=== PATIENT | female | born 1940 | race Caucasian/White ===

== ENCOUNTER → 2020-07-07 14:52 | Outpatient (CLI) | payer SELFPAY, OTHER ==
--- NOTE | 2020-07-07 15:04 | VDLE_ITS ---
Reason For Study: Leg pain Procedure LEFT This is a venous duplex using B-mode, color GSV is normal. flow and spectral Doppler. CFV is compressible, spontaneous, phasic, Exam performed in department. competent, and demonstrates normal A preliminary report was called and/or faxed augmentation. to [facility]. FV is compressible, spontaneous, phasic, competent and demonstrates normal augmentation. POP V is compressible, spontaneous, phasic, competent and demonstrates normal augmentation. T/P Trunk is compressible. PTV is compressible. LT PerV is compressible. VL/Venous Duplex US, Unilateral Interpretation Summary Deep veins of the left lower extremity are patent and compressible segmentally. There is no evidence of left lower extremity deep vein thrombosis. Valvular competence appears intac t within the proximal deep venous system on the left . The left great saphenous vein appears patent a nd compressible segmentally. Ordering Physician: AUDRA CASTANEDA Referring Physician: MD Megan Sergio Performed By: Janette Shook RVT
== END ==
PROVIDERS: PCP Family Medicine
DX: M25.572 Pain in left ankle and joints of left foot (principal); M79.605 Pain in left leg
CPT/HCPCS: 93971

== ENCOUNTER → 2020-10-18 09:46 | Outpatient (CLI) | payer OTHER, SELFPAY ==
[2020-10-18 08:59] VITALS: BMI 24.6
[2020-10-18 11:07] LABS: Thyroid Stim Hormone (TSH) 2.03 uIU/mL (0.358-3.74)
== END ==
PROVIDERS: PCP Family Medicine; Referring Provider Internal Medicine Cardiovascular Disease; Visit Provider Internal Medicine Cardiovascular Disease
DX: I48.0 Paroxysmal atrial fibrillation (principal); I10 Essential (primary) hypertension
CPT/HCPCS: 36415; 84443

== ENCOUNTER → 2020-10-19 10:02 | Outpatient (CLI) | payer OTHER, SELFPAY ==
[2020-10-18 08:59] VITALS: BMI 24.6
[2020-10-19 10:27] LABS: Prothrombin Time (Protime)PT. 72.6 SECONDS (11.7-14.9)
[2020-10-19 10:35] LABS: International Normalized Ratio 8.9
== END ==
PROVIDERS: PCP Family Medicine; Referring Provider Family Medicine; Visit Provider Family Medicine
DX: I48.0 Paroxysmal atrial fibrillation (principal)
CPT/HCPCS: 85610

== ENCOUNTER → 2020-10-20 | Outpatient (CLI) | payer OTHER, SELFPAY ==
[2020-10-18 08:59] VITALS: BMI 24.6
[2020-10-20 09:08] LABS: International Normalized Ratio 2.6; Prothrombin Time (Protime)PT. 26.6 SECONDS (11.7-14.9)
== END | disposition home or self-care (01) ==
LOC: LABSPEC 08:30
PROVIDERS: PCP Family Medicine; Visit Provider Family Medicine
DX: I48.0 Paroxysmal atrial fibrillation (principal)
CPT/HCPCS: 85610

== ENCOUNTER → 2020-10-24 09:34 | Outpatient (CLI) | payer SELFPAY, OTHER ==
[2020-10-18 08:59] VITALS: BMI 24.6
--- NOTE | 2020-10-24 09:36 | ECHOD_ITS ---
Version 2 Reason For Study: PAROXYSMAL AFIB. Procedure This was a 2D Doppler, Color Flow transthoracic echocardiogram. The study was technically difficult. Exam performed with patient in a reclined sitting position due to scoliosis. Exam performed in department. Left Ventricle Normal LV size. Left ventricular systolic function is normal. The estimated ejection fraction is 65 %. Stage 1 diastolic dysfunction. No regional wall motion abnormalities noted. Right Ventricle Normal RV size. Normal systolic function. Atria The left atrium is mildly enlarged. Normal right atrium. Mitral Valve There is mild to moderate mitral annular calcification. Mild (1+) eccentric mitral valve insufficiency. Tricuspid Valve Normal tricuspid valve. Moderate (2+) tricuspid valve insufficiency. Pulmonary artery systolic pressure is 32 mmHg. Aortic Valve Trisinus/trileaflet aortic valve. Mild focal aortic valve calcification. Mild (1+) eccentric aortic valve insufficiency. Pulmonic Valve Normal pulmonic valve. Great Vessels Normal aortic root. The pulmonary artery is normal size. Normal inferior vena cava. Pericardium/Pleural No pericardial effusion. MMode/2D Measurements & Calculations LVIDd: 4.3 cm IVSd: 0.98 cm Ao root diam: 2.8 cm LVIDs: 2.0 cm LVPWd: 0.82 cm RVDd: 2.7 cm FS: 52.2 % LAV(MOD-bp): 48.6 ml LA A4 area: 19.1 cm2 LA dimension(2D): 3.1 cm LAV(MOD-bp) Indexed: 32.5 ml/m2 LAV(MOD-sp2): 47.1 ml LAV(MOD-sp4): 48.3 ml RA A4 area: 16.1 cm2 Time Measurements MV dec time: 0.26 sec Doppler Measurements & Calculations MV E max jake: 93.7 cm/sec Lat Peak E' Jake: 6.8 cm/sec Med Peak E' Jake: 6.8 cm/sec MV A max jake: 138.1 cm/sec E/E' lat: 13.8 E/E' med: 13.7 MV E/A: 0.68 Ao V2 max: 169.1 cm/sec AI max jake: 422.4 cm/sec LV V1 max: 108.5 cm/sec Ao max P.4 mmHg AI max P.4 mmHg LV V1 max P.7 mmHg Ao V2 mean: 113.0 cm/sec AI dec slope: 207.1 cm/sec2 LV V1 mean P.7 mmHg Ao mean P.8 mmHg AI P1/2t: 597.4 msec LV V1 mean: 78.0 cm/sec Ao V2 VTI: 35.9 cm LV V1 VTI: 26.0 cm PA V2 max: 81.4 cm/sec TR max jake: 268.3 cm/sec TR max P.8 mmHg ECHO/Echo Complete Interpretation Summary Normal LV size. Left ventricular systolic function is normal. The estimated ejection fraction is 65 %. Stage 1 diastolic dysfunction. There is mild to moderate mitral annular calcification. Mild (1+) eccentric mitral valve insufficiency. Ordering Physician: Jaya Jordan Referring Physician: Sergio Guzman Performed By: Jayde Vazquez, CALEB, RVT
--- NOTE | 2020-10-24 19:39 | STRESSREP_ITS ---
Stress Test Report Pharmacologic myocardial perfusion stress test. 79-year-old lady with a history of chest pain. Stress protocol: Resting EKG demonstrates normal sinus rhythm with a rate of 71 bpm normal intervals are noted resting blood pressure is 142/68 mmHg. 0.4 mg of regadenoson was infused per usual protocol followed by rapid intravenous saline flush injection continuous EKG monitoring was performed. The patient maintained sinus rhythm throughout the recording. At rest there were no ST or T wave changes noted to suggest ischemia and at peak infusion nonspecific ST changes were noted with did not meet the criteria for ischemia. No clinical angina was noted. The maximum heart rate was under 1 bpm which was 71% of maximum predicted heart rate the maximum workload was 1 metabolic equivalent. The final blood pressure was 110/60 mmHg. Myocardial perfusion protocol. 11.0 mCi of technetium 99m sestamibi was injected at rest. 0.4 mg of rega denoson was infused per usual protocol. At peak infusion 33.4 mCi of technetium 99m sestamibi was injected stress images were obtained stress and rest images were reconstructed and compared in the short axis vertical long horizontal long axis. Gated images were also obtained Perfusion SPECT analysis: Review of the stress images demonstrate normal uptake of tracer noted in all areas of the myocardium. The resting images similarly demonstrate normal uptake of tracer noted in all areas of the myocardium. No areas of reversibility are noted to suggest ischemia and no previous infarct is noted. Gated SPECT analysis: The gated ejection fraction is 74%. Conclusion: Normal pharmacologic myocardial perfusion stress test. Preserved ejection fraction.
== END ==
PROVIDERS: PCP Family Medicine; Referring Provider Internal Medicine Cardiovascular Disease; Visit Provider Internal Medicine Cardiovascular Disease
DX: R07.9 Chest pain, unspecified (principal); I48.0 Paroxysmal atrial fibrillation; I48.92 Unspecified atrial flutter
CPT/HCPCS: 78452; 93017; 93306; A9500; A4216; J2785

== ENCOUNTER → 2020-10-26 | Outpatient (CLI) | payer OTHER, SELFPAY ==
[2020-10-18 08:59] VITALS: BMI 24.6
[2020-10-26 10:36] LABS: International Normalized Ratio 3.5; Prothrombin Time (Protime)PT. 34.6 SECONDS (11.7-14.9)
== END | disposition home or self-care (01) ==
LOC: LABSPEC 10:13
PROVIDERS: PCP Family Medicine; Visit Provider Family Medicine
DX: I48.0 Paroxysmal atrial fibrillation (principal)
CPT/HCPCS: 85610

== ENCOUNTER → 2020-12-12 | Outpatient (CLI) | payer OTHER, SELFPAY ==
[2020-12-12 13:04] LABS: International Normalized Ratio 2.1
== END | disposition home or self-care (01) ==
LOC: LABSPEC 12-13 08:06
PROVIDERS: PCP Family Medicine; Visit Provider Family Medicine
DX: I48.0 Paroxysmal atrial fibrillation (principal)
CPT/HCPCS: 85610

== ENCOUNTER 2020-12-26 13:00 | Outpatient (RCR) | payer OTHER, SELFPAY ==
[2020-12-05 14:42] VITALS: BMI 49.6
--- NOTE | 2020-12-05 16:10 | PN.PCM_ITS ---
History of Present Illness Date of Service: 12/05/20 Chief Complaint: Venous leg ulceration, left lower extremity History of Wound: This is a 76-year-old Taoist female who presents with a 6 week history of ulceration in the left medial supramalleolar area. The patient admits to having a prior episode of ulceration in this area. She claims to sleep in a flat position at night. However, during the day she spends a great deal of time and in idle sitting position. She denies any history of thrombo phlebitis. She was evaluated in the wound center 1 week ago, and treated with an Unna boot. She presents at this time, where it is noted that the ulceration in the left lower extremity is now completely healed. 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 Patient wears compre ssion stockings which she obtains [id number]. 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 Subjective Subjective Ariana is a 80 YO Taoist female who has been seen in the [facility] at [facility] for venous stasis ulcers of the LLE. There are 2 ulcers on the L medial malleolus. She is known to have incompetence of the BL great saphenous VV and the small saphenous VV. she is on chronic anticoagulation with Warfarin for PAF. I have reviewed previous notes and vascular studies. She had a normal arterial vacular study of the LE's in 2016. She admits to not wearing the compression stockings recently because with the open wound on the left medial malleolus they hurt too much to put them on. An echocardiogram in September of this year showed a 65% ejection fraction with no wall motion abnormalities. There was stage I diastolic dysfunction and +1 eccentric mitral valve insufficiency. She had a nuclear s tress test in September of 2020 but, there is no report on the results in the EMR. I was eventually able to find the results under provider notes and the test was negative for ischemia. Ariana denies any fevers, shaking chills or night sweats. She tells me that she has been taking Advil for pain. Objective Data Objective Data Vital Signs: Weight: 271 lb 2.697 oz Body Mass Index (BMI) 49.6 Lab / Micro Data Result Diagrams: 12/05/20 16:16 Charges/Coding Procedures Integumentary [id number]: [id number] Fawn subq tissue 20 sq cm/< Physical Exam Skin Skin Narrative: She has hyperpigmentation of both LE's that is patchy. She has has numerous petechiae over both distal LE's and her told me her last INR was 2.9. She denies any epistaxis, bleeding from the gums, hematochezia. No mid epigastric pain and no N/V/hematemesis. The area over the left medial malleolus is swollen and misshapen, more likely than not due to scarring. The area is purplish due to venous stasis. The skin is dry and flakey in places. There is increased warmth to touch of the medial ankle. There are 2 areas of skin breakdown limited to superficial skin breakdown but, these areas are very painful to touch. The skin is friable. The area is fed by numerous veins. The left foot is much more swollen that the left. A swab was taken of the wound and will be sent for culture and MRSA PCR. No undermining and no tunnelling and the wounds are superficial. There is no athlete's foot between the toes. Debridement Note Debridement Note Wound debrided: 2 wounds over the left medial malleolus...one superior and 1 inferior. Laterality: Left Type of Debridement: Excisional debridement Anesthesia Used: 5% Lidocaine Gel Depth: Down to and including healthy tissue and in the subcutaneous layer Percentage of wound debrided: 70 Instrument Used: Forceps Tissue Removed: biofilm and slough Severity: Limited To Skin Breakdown Amount of bleeding with debridement: Mild Bleeding Controlled with: Pressure Patient tolerated procedure: Patient tolerated procedure well Operative Diagnosis: non-healing venous stasis ulcers of the left MM Post-Debridement Measurements and Additional Note: Post-Debridement Measurements/Treatment - Nurse 1 - General Ulcer Assessment Start: 12/05/20 14:39 Freq: Status: Active Protocol: PEYTON Activity Type Activity Date Activity User E-Sign Co-Sign Detail Recorded Client Recorded Date Recorded By Document 12/05/20 14:42 [facility] [id number] 12/05/20 14:55 [facility] 12/05/20 14:42 - Today's Visit Information Type of service Initial Visit Arrival Mode Ambulatory Transfer Assistance None Accompanied by Patient Identification Verified (Name & Yes ) Patient Requires Transmission-Based No Precautions Height and Weight Height 5 ft 2 in Weight 271 lb 2.697 oz Weight in Pounds 271.2 lbs Weight Measurement Method Estimated by Patient Body Mass Index (BMI) 49.6 BMI Classification Obese BSA - Kaitlyn 2.18 History Since Last Visit- (Skip if this is Patient's initial visit) Left Footwear Regular Shoe Right Footwear Regular Shoe Pain Scale: 0-10 Numeric Is Patient Pain Free? Yes Lower Extremity Assessment/ Foot Assessment/ Toe Nail Assessment Right -Posterior Tibial Doppler Monophasic -Dorsalis Pedis Doppler Monophasic -Extremity Color Hyperpigmented, Hemosiderin -Hair Growth on Legs No -Hair Growth on Toes No -Temperature of Extremity Warm -Other Deformity No -Prior Foot Ulcer No -Charcot Joint No -Prior Amputation No -Thick Yes -Discolored No -Deformed No -Improper Length & Hygeine No Left -Posterior Tibial Doppler Monophasic -Dorsalis Pedis Doppler Monophasic -Extremity Color Hyperpigmented, Hemosiderin -Hair Growth on Legs No -Hair Growth on Toes No -Temperature of Extremity Warm -Other Deformity No -Prior Foot Ulcer No -Charcot Joint No -Prior Amputation No -Thick Yes -Discolored No -Deformed No -Improper Length & Hygeine No Neuropathy Assessment Feet - Top Side and Bottom <Entered> (a) Communication Assessment Preferred language Gambian Reed Or Wind Instrument Tuner Required No Able to Read Yes Able to Write Yes Communication Tools None Right Hearing Abillity Normal Left Hearing Abillity Normal Visual Assistive Devices Glasses Teaching Assessment Preferences Verbal,Written, Audio/Visual, Demonstration Barriers to Learning None Readiness To Learn Excellent Willingness to Engage in Self Management High Activies Readiness to Engage in Self Management High Activities Anxiety Level Calm Cooperation Cooperative Perception Coherent Interest in Health Problem Asks Questions Education Importance Acknowledges Need Does Patient Smoke tobacco or other No substances Smoking Status Never smoker Is Patient Diabetic No 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 Cultural/Judaism Needs that may affect No Treatment Plan Teaching: Wound Center *Welcome to the Wound Center -Person Taught Patient,Family -Teaching Method Discussion -Response to teaching Verbalize understanding Welcome to the Wound Care Center Gambian (a) 1 - + WC - Nurse 1 - General Ulcer Measurement Start: 12/05/20 14:39 Freq: Status: Active Protocol: Activity Type Activity Date Activity User E-Sign Co-Sign Detail Recorded Client Recorded Date Recorded By Document 12/05/20 14:42 [facility] [id number] 12/05/20 14:55 [facility] 12/05/20 14:42 Wound Center Nurse 1 #3- L INFERIOR MED ANKLE -Combined with other wound No -Current Size (cm) - Length 0.9 -Current Size (cm) - Width 0.9 -Current Size (cm) - Depth 0.1 -Total Square Cm 0.81 -Date of Last Picture (Recall this 12/05/20 field) -Photo Taken Yes -Epithelialization None Present -Tunneling No -Undermining/Tunneling No -Circular Undermining No -Exudate Amt Medium -Exudate Type Serosanguineous -Wound Margin Distinct, Outline Attached -Granulation Amt Medium (34-66%) -Granulation Quality Red -Slough/Fibrin Yes -Necrosis Amt Medium (34-66%) -Necrotic Tissue Type Adherent Slough -Texture (Sherly-wound Skin Appearance) Assessed, Scarring -Moisture (Sherly-wound Skin Appearance) Assessed -Color (Sherly-wound Skin Appearance) Assessed, Hemosiderin Staining -Temperature (Sherly-wound Skin No Abnormality Appearance) (Pt Warm) -Tenderness on Palpation (Sherly-wound Yes Skin Appearance) -Ulcer Cleansing Rinsed/ Irrigated with Saline -Foul Odor after Cleansing No -Anesthetic Used 5% Lidocaine Gel #2- L MED SUPERIOR ANKLE -Combined with other wound No -Current Size (cm) - Length 0.4 -Current Size (cm) - Width 1 -Current Size (cm) - Depth 0.1 -Total Square Cm 0.4 -Date of Last Picture (Recall this 12/05/20 field) -Photo Taken Yes -Epithelialization None Present -Tunneling No -Undermining/Tunneling No -Circular Undermining No -Exudate Amt Medium -Exudate Type Serosanguineous -Wound Margin Distinct, Outline Attached -Granulation Amt Small (1-33%) -Granulation Quality Red -Slough/Fibrin Yes -Necrosis Amt Large (67-100%) -Necrotic Tissue Type Adherent Slough -Texture (Sherly-wound Skin Appearance) Assessed, Scarring -Moisture (Shelry-wound Skin Appearance) Assessed -Color (Sherly-wound Skin Appearance) Assessed, Hemosiderin Staining -Temperature (Sherly-wound Skin No Abnormality Appearance) (Pt Warm) -Tenderness on Palpation (Sherly-wound Yes Skin Appearance) -Ulcer Cleansing Rinsed/ Irrigated with Saline -Foul Odor after Cleansing No -Anesthetic Used 5% Lidocaine Gel Lower Limb Edema Present Yes Right Calf (cm) 33.5 Right Ankle (cm) 21 Left Calf (cm) 32 Left Ankle (cm) 21.5 WC - Nurse 2 - General Ulcer CM Notes Start: 12/05/20 14:39 Freq: Status: Active Protocol: Activity Type Activity Date Activity User E-Sign Co-Sign Detail Recorded Client Recorded Date Recorded By Document 12/05/20 15:24 [facility] [id number] 12/05/20 15:40 [facility] 12/05/20 15:24 Wound Center Nurse 2 #3- L INFERIOR MED ANKLE -Time 15:26 -Correct Patient Yes -Correct Side, Site, Position Yes -Correct Procedure Yes -Procedure Performed Yes -Type of Procedure Debridement -Clinical Debridement Subcutaneous -Tissue Removed Subcutaneous -Post Debridement (cm) - Length 0.9 -Post Debridement (cm) - Width 0.9 -Post Debridement (cm) - Depth 0.1 -Total Square (Post) (cm) 0.81 -Area of Debridement (cm) - Length 0.9 -Area of Debridement (cm) - Width 0.9 -Total Square (Area) (cm) 0.81 -Tunneling No -Undermining/Tunneling No -Circular Undermining No -Wound/Ulcer Outcome Not Healed -Ulcer Cleansing Rinsed/ Irrigated with Saline -Foul Odor after Cleansing No -Bioengineered Tissue No -Bleeding Controlled with Pressure -Offloading No -Treatment Response Procedure Tolerated Well -Debridement - Subq, 1st 20sq cm Yes #2- L MED SUPERIOR ANKLE -Time 15:26 -Correct Patient Yes -Correct Side, Site, Position Yes -Correct Procedure Yes -Procedure Performed Yes -Type of Procedure Debridement -Clinical Debridement Subcutaneous -Tissue Removed Subcutaneous -Post Debridement (cm) - Length 0.4 -Post Debridement (cm) - Width 1.0 -Post Debridement (cm) - Depth 0.1 -Total Square (Post) (cm) 0.40 -Area of Debridement (cm) - Length 0.4 -Area of Debridement (cm) - Width 1.0 -Total Square (Area) (cm) 0.40 -Tunneling No -Undermining/Tunneling No -Circular Undermining No -Wound/Ulcer Outcome Not Healed -Ulcer Cleansing Rinsed/ Irrigated with Saline -Foul Odor after Cleansing No -Bioengineered Tissue No -Bleeding Controlled with Pressure -Offloading No -Treatment Response Procedure Tolerated Well -Debridement - Subq, 1st 20sq cm Yes Pain Scale: 0-10 Numeric Is Patient Pain Free? Yes WC - Nurse 3 - General Ulcer D/C NN Start: 12/05/20 14:39 Freq: Status: Active Protocol: Activity Type Activity Date Activity User E-Sign Co-Sign Detail Recorded Client Recorded Date Recorded By Document 12/05/20 16:01 [facility] [id number] 12/05/20 16:04 [facility] 12/05/20 16:01 Wound Care Nurse 3 #3- L INFERIOR MED ANKLE -Ulcer Cleansing Rinsed/ Irrigated with Saline -Foul Odor after Cleansing No -Negative Pressure Wound Therapy N/A Left -Multi-Layered Wrap Application Unna Boot - Left ($) WC - Visit Discharge Discharge Condition Stable Ambulatory Status Ambulatory Transportation Private Auto Accompanied by Medication Reconcilliation completed & Yes provided to patient/care provider Clinical Summary of Care Provided Yes Assessment/Plan Assessment/Plan (1) Cellulitis: CODE(S): L03.90 - Cellulitis, unspecified (2) Venous ulcer of left leg: CODE(S): I83.029 - Varicose veins of left lower extremity with ulcer of unspecified site (3) Venous incompetence: CODE(S): I87.2 - Venous insufficiency (chronic) (peripheral) (4) Petechiae: CODE(S): R23.3 - Spontaneous ecchymoses (5) Hemosiderin pigmentation of lower extremity due to varicose veins: CODE(S): L81.8 - Other specified disorders of pigmentation; I83.899 - Varicose veins of unspecified lower extremity with other complications (6) Chronic anticoagulation: CODE(S): Z79.01 - oil heaterman (current) use of anticoagulants (7) Grade I diastolic dysfunction: CODE(S): I51.9 - Heart disease, unspecified PLAN: 1. Duricef 1 GM daily for 7 days 2. she is to discontinue use of Advil and take either Tylenol or Tramadol. A RX was given for Tramadol 50 mg tabs and she is to take 25-50 mg every 6 hours as needed for pain 3-10. 3. Unna boot was applied to the LLE and she will return to the [facility] Friday for a nurse visit. I stressed to her how improtant compression is to preventing/treating venous stasis ulcers. 4. Check a CBC with Diff, PT and a ESR and BMP 5. Cultures of the wound were sent and a MRSA PCR.
[2020-12-05 17:41] LABS: M R Staph aureus DNA By PCR Negative (Negative); Probe Check PASS; Specimen Processing Control PASS; Staph aureus DNA By PCR POSITIVE (Negative)
[2020-12-05 17:46] LABS: Absolute Lymphocyte Count 1.41 X10^3/uL (0.83-4.51); Absolute Neutrophil Count 2.5 X10^3/uL (2.0-7.7); Basophil# 0.02 X10^3/uL; Basophil% 0.4 % (0-1); Eosinophil# 0.22 X10^3/uL; Eosinophils% 4.8 % (0-5); Hematocrit 36.3 % (37-47); Hemoglobin 11.8 g/dL (12.0-15.0); Lymphocyte # 1.41 X10^3/ul (0.83-4.51); Lymphocyte % 30.5 % (19-41); Mean Corp Hgb Conc 32.5 g/dL (32-36); Mean Corpuscular Hgb 31.1 pg (27.0-32.0); Mean Corpuscular Volume 95.8 fL (81-99); Mean Platelet Vol. 10.3 fl (6.2-12.0); Monocyte# 0.49 X10^3/uL; Monocyte% 10.6 % (0-10); NRBC Flagged by Analyzer 0 % (0-5); Neutrophil # 2.48 X10^3/uL (2.7-7.7); Neutrophil % 53.5 % (47-70); Platelet Count 159 K/mm3 (150-450); RBC Distribution Width CV 13.5 % (11.6-14.6); RBC Distribution Width SD 47.9 fl (35.1-43.9); Red Blood Count 3.79 M/mm3 (4.2-5.4); White Blood Count 4.6 K/mm3 (4.4-11.0)
[2020-12-05 18:07] LABS: International Normalized Ratio 3.3; Prothrombin Time (Protime)PT. 32.5 SECONDS (11.7-14.9)
[2020-12-05 18:19] LABS: Erythrocyte Sedimentation Rate 8 mm/hr (0-30)
[2020-12-08 11:44] VITALS: BP 118/60; PULSE 73; RESP 16; TEMP 36.1; BMI 49.6
[2020-12-12 13:14] VITALS: BP 143/64; PULSE 70; RESP 16; TEMP 36.3; BMI 49.6
--- NOTE | 2020-12-12 13:40 | PN.PCM_ITS ---
History of Present Illness Date of Service: 12/12/20 Chief Complaint: Venous leg ulceration, left lower extremity History of Wound: This is a 76-year-old Anabaptist female who presents with a 6 week history of ulceration in the left medial supramalleolar area. The patient admits to having a prior episode of ulceration in this area. She claims to sleep in a flat position at night. However, during the day she spends a great deal of time and in idle sitting position. She denies any history of thrombo phlebitis. She was evaluated in the wound center 1 week ago, and treated with an Unna boot. She presents at this time, where it is noted that the ulceration in the left lower extremity is now completely healed. 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 Patient wears compre ssion stockings which she obtains [id number]. 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 Subjective Subjective Ariana returns to the wound care center today for a follow-up visit regarding venous stasis ulcers of the left medial ankle. She has severe varicosities of both lower extremities with hyperpigmentation and scarring around the ankles. She denies fever, shaking chills or night sweats. She does complain of pain in her left ankle and admits she may be on it too much. She has been taking the tramadol but she sometimes only takes it in the morning or at night. She took the last Duricef today. Objective Data Objective Data Vital Signs: Vital Signs Temp Pulse Resp BP 97.4 F L 70 16 143/64 H 12/12/20 13:14 12/12/20 13:14 12/12/20 13:14 12/12/20 13:14 Oxygen Delivery Method Room Air Weight: 271 lb 2.697 oz Body Mass Index (BMI) 49.6 Lab / Micro Data Result Diagrams: 12/05/20 16:16 Micro: Microbiology 12/05/20 15:35 Wound Abcess - Ankle Gram Stain - Final 12/05/20 15:35 Wound Abcess - Ankle Wound Culture - Final Staphylococcus aureus 12/05/20 15:35 Wound Abcess - Ankle Anaerobic Culture - Final Anaerobic cocci Charges/Coding Procedures Integumentary [id number]: [id number] Fawn subq tissue 20 sq cm/< Physical Exam Skin Wound Narrative: She has large complexes of varicose veins over the medial malleoli BL. There is thickening of the skin over the medial calf on the LLE and it is discolored due to hemosiderin staining. there are 2 wounds on the L medial malleolus. the proximal wound is healed. the wound that is more inferior remain open. she was unable to tolerate debridement even with the 4% lidocaine solution so I injected the area surrounding the wound with with 2% Lidocaine without EPI. She was then able to tolerate debridement. The base of the wound is white and fibrous following debridement of the slough covering the wound. There was very little bleeding. She tolerated the procedure well following the Lidocaine injection. No odor, no undermining, no tunneling. The depth is 0.1 cm. There is still mild increased warmth to touch around the open wound and some redness. Debridement Note Debridement Note Wound debrided: venous stasis ulcer over the Left medial ankle Laterality: Left Type of Debridement: Excisional debridement Anesthesia Used: 4% Lidocaine Solution and - (2% Lidocaine infiltration to facillitate debridement in painful patient) Depth: in the subcutaneous layer Percentage of wound debrided: 100 Instrument Used: 3mm curette and Forceps Tissue Removed: slough and biofilm Severity: Fat Layer Exposed Amount of bleeding with debridement: None Patient tolerated procedure: Patient tolerated procedure well Operative Diagnosis: non-healing venous stasis ulcer L MM Post-Debridement Measurements and Additional Note: Post-Debridement Measurements/Treatment - Nurse 1 - General Ulcer Assessment Start: 12/05/20 14:39 Freq: Status: Active Protocol: SHANTEL.LOWEXT Activity Type Activity Date Activity User E-Sign Co-Sign Detail Recorded Client Recorded Date Recorded By Document 12/05/20 14:42 BMF [id number] 12/05/20 14:55 BMF Document 12/08/20 11:44 ML [id number] 12/08/20 11:45 ML Document 12/12/20 13:14 MW [id number] 12/12/20 13:17 MW 12/05/20 12/08/20 12/12/20 14:42 11:44 13:14 - Today's Visit Information Type of service Initial Visit Nurse-only Follow-up Visit Visit (Physician/CODING SPEC ) Arrival Mode Ambulatory Ambulatory Ambulatory Transfer Assistance None None None Accompanied by Patient Identification Verified (Name & Yes Yes Yes ) Patient Requires Transmission-Based No No No Precautions Safety Precautions NA Height and Weight Height 5 ft 2 in Weight 271 lb 2.697 oz Weight in Pounds 271.2 lbs Weight Measurement Method Estimated by Patient Body Mass Index (BMI) 49.6 49.6 49.6 BMI Classification Obese Obese Obese BSA - Kaitlyn 2.18 Vital Signs Temperature (97.8 F-99.1 F) 97.0 F L 97.4 F L Temperature Source Temporal Temporal Pulse Rate (60-100) 73 70 Pulse Location Monitor Monitor Respiratory Rate (12-18) 16 16 Respiratory rate source Observation Observation Oxygen Delivery Method Room Air Blood Pressure (90/60-120/80) 118/60 143/64 H Blood Pressure Mean (mm Hg) 79 90 Source Monitor Monitor Position Sitting Blood Pressure Location Left Arm Left Arm Have you changed medications since your No No last visit? Any new allergies or adverse reactions No No Had a fall/change in ADL's that may No No increase risk of falls Signs or symptoms of abuse and/or No No neglect since last visit Have you been in the hospital since your No No last visit? Has dressing in place as prescribed Yes Yes Has compression in place as prescribed Yes Yes Has offloadiing in place as prescribed N/A N/A Experienced any changes in pain level or No No management History Since Last Visit- (Skip if this is Patient's initial visit) Left Footwear Regular Shoe Regular Shoe Regular Shoe Right Footwear Regular Shoe Regular Shoe Regular Shoe Pain Scale: 0-10 Numeric Is Patient Pain Free? Yes Yes Yes Lower Extremity Assessment/ Foot Assessment/ Toe Nail Assessment Right -Posterior Tibial Doppler Monophasic -Dorsalis Pedis Doppler Monophasic -Extremity Color Hyperpigmented, Hemosiderin -Hair Growth on Legs No -Hair Growth on Toes No -Temperature of Extremity Warm -Other Deformity No -Prior Foot Ulcer No -Charcot Joint No -Prior Amputation No -Thick Yes -Discolored No -Deformed No -Improper Length & Hygeine No Left -Posterior Tibial Doppler Monophasic -Dorsalis Pedis Doppler Monophasic -Extremity Color Hyperpigmented, Hemosiderin -Hair Growth on Legs No -Hair Growth on Toes No -Temperature of Extremity Warm -Other Deformity No -Prior Foot Ulcer No -Charcot Joint No -Prior Amputation No -Thick Yes -Discolored No -Deformed No -Improper Length & Hygeine No Neuropathy Assessment Feet - Top Side and Bottom <Entered> (a) Communication Assessment Preferred language Citizen 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 Able to Read Yes Able to Write Yes Communication Tools None Right Hearing Abillity Normal Left Hearing Abillity Normal Visual Assistive Devices Glasses Teaching Assessment Preferences Verbal,Written, Audio/Visual, Demonstration Barriers to Learning None Readiness To Learn Excellent Willingness to Engage in Self Management High Activies Readiness to Engage in Self Management High Activities Anxiety Level Calm Cooperation Cooperative Perception Coherent Interest in Health Problem Asks Questions Education Importance Acknowledges Need Does Patient Smoke tobacco or other No substances Smoking Status Never smoker Is Patient Diabetic No 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 Cultural/Sikhism Needs that may affect No Treatment Plan Teaching: Wound Center *Welcome to the Wound Center -Person Taught Patient,Family -Teaching Method Discussion -Response to teaching Verbalize understanding Welcome to the Wound Care Center Citizen [place] (a) 1 - + - Nurse 1 - General Ulcer Measurement Start: 12/05/20 14:39 Freq: Status: Active Protocol: Activity Type Activity Date Activity User E-Sign Co-Sign Detail Recorded Client Recorded Date Recorded By Document 12/05/20 14:42 [facility] [id number] 12/05/20 14:55 [facility] Document 12/12/20 13:14 [id number] 12/12/20 13:17 12/05/20 12/12/20 14:42 13:14 Wound Center Nurse 1 #3- L INFERIOR MED ANKLE -Combined with other wound No No -Current Size (cm) - Length 0.9 0.1 -Current Size (cm) - Width 0.9 0.1 -Current Size (cm) - Depth 0.1 0.1 -Total Square Cm 0.81 0.01 -Date of Last Picture (Recall this 12/05/20 field) -Photo Taken Yes No -Epithelialization None Present None Present -Tunneling No No -Undermining/Tunneling No No -Circular Undermining No No -Exudate Amt Medium Medium -Exudate Type Serosanguineous Serosanguineous -Wound Margin Distinct, Flat & Intact Outline Attached -Granulation Amt Medium (34-66%) Small (1-33%) -Granulation Quality Red Tropic -Slough/Fibrin Yes Yes -Necrosis Amt Medium (34-66%) Medium (34-66%) -Necrotic Tissue Type Adherent Slough Adherent Slough -Structure Exposed N/A -Texture (Sherly-wound Skin Appearance) Assessed, Assessed, Scarring Localized Edema ,Scarring -Moisture (Sherly-wound Skin Appearance) Assessed Assessed,Dry/ Scaly -Color (Hserly-wound Skin Appearance) Assessed, Assessed, Hemosiderin Hemosiderin Staining Staining -Temperature (Sherly-wound Skin No Abnormality No Abnormality Appearance) (Pt Warm) (Pt Warm) -Tenderness on Palpation (Sherly-wound Yes No Skin Appearance) -Ulcer Cleansing Rinsed/ SOAP AND WATER Irrigated with Saline -Foul Odor after Cleansing No -Anesthetic Used 5% Lidocaine Gel #2- L MED SUPERIOR ANKLE -Combined with other wound No No -Current Size (cm) - Length 0.4 0.1 -Current Size (cm) - Width 1 0.1 -Current Size (cm) - Depth 0.1 0.1 -Total Square Cm 0.4 0.01 -Date of Last Picture (Recall this 12/05/20 field) -Photo Taken Yes No -Epithelialization None Present Large 67-100% -Tunneling No No -Undermining/Tunneling No No -Circular Undermining No No -Exudate Amt Medium Small -Exudate Type Serosanguineous -Wound Margin Distinct, Flat & Intact Outline Attached -Granulation Amt Small (1-33%) None Present (0 %) -Granulation Quality Red N/A -Slough/Fibrin Yes No -Necrosis Amt Large (67-100%) None Present (0 %) -Necrotic Tissue Type Adherent Slough -Structure Exposed N/A -Texture (Sherly-wound Skin Appearance) Assessed, Assessed, Scarring Scarring -Moisture (Sherly-wound Skin Appearance) Assessed Assessed,Dry/ Scaly -Color (Sherly-wound Skin Appearance) Assessed, Assessed, Hemosiderin Hemosiderin Staining Staining -Temperature (Sherly-wound Skin No Abnormality No Abnormality Appearance) (Pt Warm) (Pt Warm) -Tenderness on Palpation (Sherly-wound Yes Yes Skin Appearance) -Ulcer Cleansing Rinsed/ SOAP AND WATER Irrigated with Saline -Foul Odor after Cleansing No No -Anesthetic Used 5% Lidocaine 4% Lidocaine Gel Solution Lower Limb Edema Present Yes No Right Calf (cm) 33.5 Right Ankle (cm) 21 Left Calf (cm) 32 Left Ankle (cm) 21.5 WC - Nurse 2 - General Ulcer CM Notes Start: 12/05/20 14:39 Freq: Status: Active Protocol: Activity Type Activity Date Activity User E-Sign Co-Sign Detail Recorded Client Recorded Date Recorded By Document 12/05/20 15:24 MW [id number] 12/05/20 15:40 MW Edit Result 12/05/20 15:24 MW (1) [id number] 12/07/20 06:41 PL Document 12/12/20 13:17 MW [id number] 12/12/20 13:33 MW (1) #2- L MED SUPERIOR ANKLE - Debridement - Subq, 1st 20sq cm Yes => No 12/05/20 12/12/20 15:24 13:17 Wound Center Nurse 2 #3- L INFERIOR MED ANKLE -Time 15:26 13:19 -Correct Patient Yes Yes -Correct Side, Site, Position Yes Yes -Correct Procedure Yes Yes -Procedure Performed Yes Yes -Type of Procedure Debridement Debridement -Clinical Debridement Subcutaneous Subcutaneous -Tissue Removed Subcutaneous Subcutaneous -Post Debridement (cm) - Length 0.9 0.9 -Post Debridement (cm) - Width 0.9 0.7 -Post Debridement (cm) - Depth 0.1 0.1 -Total Square (Post) (cm) 0.81 0.63 -Area of Debridement (cm) - Length 0.9 0.9 -Area of Debridement (cm) - Width 0.9 0.7 -Total Square (Area) (cm) 0.81 0.63 -Tunneling No No -Undermining/Tunneling No No -Circular Undermining No No -Wound/Ulcer Outcome Not Healed Not Healed -Ulcer Cleansing Rinsed/ Rinsed/ Irrigated with Irrigated with Saline Saline -Foul Odor after Cleansing No No -Bioengineered Tissue No No -Injectable Lidocaine (%) 2 -Lidocaine (ml) 5 -Bleeding Controlled with Pressure Pressure -Offloading No No -Treatment Response Procedure Procedure Tolerated Well Tolerated Well -Debridement - Subq, 1st 20sq cm Yes Yes #2- L MED SUPERIOR ANKLE -Time 15:26 13:18 -Correct Patient Yes Yes -Correct Side, Site, Position Yes Yes -Correct Procedure Yes Yes -Procedure Performed Yes No -Type of Procedure Debridement -Clinical Debridement Subcutaneous -Tissue Removed Subcutaneous -Post Debridement (cm) - Length 0.4 0 -Post Debridement (cm) - Width 1.0 0 -Post Debridement (cm) - Depth 0.1 0 -Total Square (Post) (cm) 0.40 0 -Area of Debridement (cm) - Length 0.4 -Area of Debridement (cm) - Width 1.0 -Total Square (Area) (cm) 0.40 -Tunneling No -Undermining/Tunneling No -Circular Undermining No -Wound/Ulcer Outcome Not Healed Healed- Epithelialized -Ulcer Cleansing Rinsed/ Irrigated with Saline -Foul Odor after Cleansing No -Bioengineered Tissue No -Bleeding Controlled with Pressure -Offloading No -Treatment Response Procedure Tolerated Well -Debridement - Subq, 1st 20sq cm No Pain Scale: 0-10 Numeric Is Patient Pain Free? Yes Yes - Nurse 3 - General Ulcer D/C NN Start: 12/05/20 14:39 Freq: Status: Active Protocol: Activity Type Activity Date Activity User E-Sign Co-Sign Detail Recorded Client Recorded Date Recorded By Document 12/05/20 16:01 AK [id number] 12/05/20 16:04 AK Document 12/08/20 11:44 ML [id number] 12/08/20 11:45 ML 12/05/20 12/08/20 16:01 11:44 Wound Care Nurse 3 #3- L INFERIOR MED ANKLE -Ulcer Cleansing Rinsed/ Irrigated with Saline -Foul Odor after Cleansing No -Negative Pressure Wound Therapy N/A Left -Multi-Layered Wrap Application Unna Boot - Unna Boot - Left ($) Left ($) Vital Signs Temperature (97.8 F-99.1 F) 97.0 F L Temperature Source Temporal Pulse Rate (60-100) 73 Pulse Location Monitor Respiratory Rate (12-18) 16 Respiratory rate source Observation Blood Pressure (90/60-120/80) 118/60 Blood Pressure Mean (mm Hg) 79 Source Monitor Position Sitting Blood Pressure Location Left Arm Pain Scale: 0-10 Numeric Is Patient Pain Free? Yes WC - Visit Discharge Discharge Condition Stable Ambulatory Status Ambulatory Transportation Private Auto Accompanied by Medication Reconcilliation completed & Yes provided to patient/care provider Clinical Summary of Care Provided Yes Assessment/Plan Assessment/Plan (1) Venous ulcer of left leg: CODE(S): I83.029 - Varicose veins of left lower extremity with ulcer of unspecified site (2) Cellulitis: CODE(S): L03.90 - Cellulitis, unspecified (3) Chronic anticoagulation: CODE(S): Z79.01 - USP (current) use of anticoagulants (4) Venous incompetence: CODE(S): I87.2 - Venous insufficiency (chronic) (peripheral) PLAN: 1. Duricef 1 GM BID for 4 days. 2. Tramadol 50 mg tabs #28 1 PO q 6 hours PRN pain. May take 2 at bedtime 3. Cover the wound with Tavia and they re-apply unna boot 4. RTC in 1 week 5. Ariana will bring the compression stocking in for the R leg next week.......she thinks it is time for new stockings If we can not get the wound to heal would consider Theraskin once the infection has resolved.
[2020-12-19 13:15] VITALS: BP 139/59; PULSE 78; RESP 20; TEMP 36.1; BMI 49.6
--- NOTE | 2020-12-19 13:42 | PN.PCM_ITS ---
History of Present Illness Date of Service: 12/19/20 Chief Complaint: Venous leg ulceration, left lower extremity History of Wound: This is a 76-year-old Buddhist female who presents with a 6 week history of ulceration in the left medial supramalleolar area. The patient admits to having a prior episode of ulceration in this area. She claims to sleep in a flat position at night. However, during the day she spends a great deal of time and in idle sitting position. She denies any history of thrombo phlebitis. She was evaluated in the wound center 1 week ago, and treated with an Unna boot. She presents at this time, where it is noted that the ulceration in the left lower extremity is now completely healed. 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 Patient wears compre ssion stockings which she obtains [id number]. 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 Subjective Subjective She has only been taking the Duricef 500 mg BID and not 1 GM BID. She is c/o sharp lightening' pain in the distal LLE and the ankle. It sometimes feels as though it is burning. This pain wakes her up at night sometimes. She admits to doing too much but, tells me that when she sits and then gets up to walk the pain is transiently worse. She denies F/C/S. No diarrhea, painful mouth sores or vaginal itching or DC. Objective Data Objective Data Vital Signs: Vital Signs Temp Pulse Resp BP 96.9 F L 78 20 H 139/59 H 12/19/20 13:15 12/19/20 13:15 12/19/20 13:15 12/19/20 13:15 Oxygen Delivery Method Room Air Weight: 271 lb 2.697 oz Body Mass Index (BMI) 49.6 Lab / Micro Data Result Diagrams: 12/05/20 16:16 Micro: Microbiology 12/05/20 15:35 Wound Abcess - Ankle Gram Stain - Final 12/05/20 15:35 Wound Abcess - Ankle Wound Culture - Final Staphylococcus aureus 12/05/20 15:35 Wound Abcess - Ankle Anaerobic Culture - Final Anaerobic cocci Charges/Coding Procedures Integumentary [id number]: [id number] Debride infected skin Physical Exam Skin Wound Narrative: There is mild erythema around the venous stasis ulcer over the medial malleolus and there is also increased warmth to touch when compared to the other ankle. The wound is covered with a thick dried eschar/callous. The wound is lilliam. There is a lot of rough scar tissue around the wound from multiple previous ulcers. The wound proximal to the ulcer over the medial malleolus is healed. Debridement Note Debridement Note Wound debrided: venous stasis ulcer Laterality: Left Type of Debridement: Excisional debridement Anesthesia Used: 4% Lidocaine Solution Depth: Down to and including healthy tissue Percentage of wound debrided: 100 Instrument Used: 3mm curette and Forceps Tissue Removed: eschar/biofilm Severity: Limited To Skin Breakdown Amount of bleeding with debridement: Mild Bleeding Controlled with: Pressure Patient tolerated procedure: Patient tolerated procedure well Debridement Free Text: the base of the wound is white and fibrous. There is so much scar issue in this area of the wound that there is very little subcutaneous tissue......We may actually be looking at a tendon or part of the joint capsule Operative Diagnosis: infected venous stasis ulcer Post-Debridement Measurements and Additional Note: Post-Debridement Measu rements/Treatment - Nurse 1 - General Ulcer Assessment Start: 12/05/20 14:39 Freq: Status: Active Protocol: SHANTEL.LORRI Activity Type Activity Date Activity User E-Sign Co-Sign Detail Recorded Client Recorded Date Recorded By Document 12/05/20 14:42 [facility] [id number] 12/05/20 14:55 BMF Document 12/08/20 11:44 ML [id number] 12/08/20 11:45 ML Document 12/12/20 13:14 MW [id number] 12/12/20 13:17 MW Document 12/19/20 13:15 DL [id number] 12/19/20 13:20 DL 12/05/20 12/08/20 12/12/20 14:42 11:44 13:14 - Today's Visit Information Type of service Initial Visit Nurse-only Follow-up Visit Visit (Physician/UTILITY LOCATOR ) Arrival Mode Ambulatory Ambulatory Ambulatory Transfer Assistance None None None Accompanied by Patient Identification Verified (Name & Yes Yes Yes ) Patient Requires Transmission-Based No No No Precautions Safety Precautions NA Height and Weight Height 5 ft 2 in Weight 271 lb 2.697 oz Weight in Pounds 271.2 lbs Weight Measurement Method Estimated by Patient Body Mass Index (BMI) 49.6 49.6 49.6 BMI Classification Obese Obese Obese BSA - Kaitlyn 2.18 Vital Signs Temperature (97.8 F-99.1 F) 97.0 F L 97.4 F L Temperature Source Temporal Temporal Pulse Rate (60-100) 73 70 Pulse Location Monitor Monitor Respiratory Rate (12-18) 16 16 Respiratory rate source Observation Observation Oxygen Delivery Method Room Air Blood Pressure (90/60-120/80) 118/60 143/64 H Blood Pressure Mean (mm Hg) 79 90 Source Monitor Monitor Position Sitting Blood Pressure Location Left Arm Left Arm Have you changed medications since your No No last visit? Any new allergies or adverse reactions No No Had a fall/change in ADL's that may No No increase risk of falls Signs or symptoms of abuse and/or No No neglect since last visit Have you been in the hospital since your No No last visit? Has dressing in place as prescribed Yes Yes Has compression in place as prescribed Yes Yes Has offloadiing in place as prescribed N/A N/A Experienced any changes in pain level or No No management History Since Last Visit- (Skip if this is Patient's initial visit) Left Footwear Regular Shoe Regular Shoe Regular Shoe Right Footwear Regular Shoe Regular Shoe Regular Shoe Pain Scale: 0-10 Numeric Is Patient Pain Free? Yes Yes Yes Lower Extremity Assessment/ Foot Assessment/ Toe Nail Assessment Right -Posterior Tibial Doppler Monophasic -Dorsalis Pedis Doppler Monophasic -Extremity Color Hyperpigmented, Hemosiderin -Hair Growth on Legs No -Hair Growth on Toes No -Temperature of Extremity Warm -Other Deformity No -Prior Foot Ulcer No -Charcot Joint No -Prior Amputation No -Thick Yes -Discolored No -Deformed No -Improper Length & Hygeine No Left -Posterior Tibial Doppler Monophasic -Dorsalis Pedis Doppler Monophasic -Extremity Color Hyperpigmented, Hemosiderin -Hair Growth on Legs No -Hair Growth on Toes No -Temperature of Extremity Warm -Other Deformity No -Prior Foot Ulcer No -Charcot Joint No -Prior Amputation No -Thick Yes -Discolored No -Deformed No -Improper Length & Hygeine No Neuropathy Assessment Feet - Top Side and Bottom <Entered> (a) Communication Assessment Preferred language Kittitian Structural Architect Required No Able to Read Yes Able to Write Yes Communication Tools None Right Hearing Abillity Normal Left Hearing Abillity Normal Visual Assistive Devices Glasses Teaching Assessment Preferences Verbal,Written, Audio/Visual, Demonstration Barriers to Learning None Readiness To Learn Excellent Willingness to Engage in Self Management High Activies Readiness to Engage in Self Management High Activities Anxiety Level Calm Cooperation Cooperative Perception Coherent Interest in Health Problem Asks Questions Education Importance Acknowledges Need Does Patient Smoke tobacco or other No substances Smoking Status Never smoker Is Patient Diabetic No Culture/Episcopalian/Director Of Teenage Activities Cultural/Episcopalian Needs that may affect No Treatment Plan Teaching: Wound Center *Welcome to the Wound Center -Person Taught Patient,Family -Teaching Method Discussion -Response to teaching Verbalize understanding Welcome to the Wound Care Center Kitt[place] 12/19/20 13:15 WC - Today's Visit Information Type of service Follow-up Visit (Physician/UTILITY LOCATOR ) Arrival Mode Ambulatory Transfer Assistance None Accompanied by Patient Identification Verified (Name & Yes ) Patient Requires Transmission-Based No Precautions Safety Precautions Height and Weight Height Weight Weight in Pounds Weight Measurement Method Body Mass Index (BMI) 49.6 BMI Classification Obese BSA - Kaitlyn Vital Signs Temperature (97.8 F-99.1 F) 96.9 F L Temperature Source Temporal Pulse Rate (60-100) 78 Pulse Location Monitor Respiratory Rate (12-18) 20 H Respiratory rate source Observation Oxygen Delivery Method Blood Pressure (90/60-120/80) 139/59 H Blood Pressure Mean (mm Hg) 85 Source Monitor Position Blood Pressure Location Have you changed medications since your No last visit? Any new allergies or adverse reactions No Had a fall/change in ADL's that may No increase risk of falls Signs or symptoms of abuse and/or No neglect since last visit Have you been in the hospital since your No last visit? Has dressing in place as prescribed Yes Has compression in place as prescribed Yes Has offloadiing in place as prescribed N/A Experienced any changes in pain level or No management History Since Last Visit- (Skip if this is Patient's initial visit) Left Footwear Right Footwear Pain Scale: 0-10 Numeric Is Patient Pain Free? Yes Lower Extremity Assessment/ Foot Assessment/ Toe Nail Assessment Right -Posterior Tibial Doppler -Dorsalis Pedis Doppler -Extremity Color -Hair Growth on Legs -Hair Growth on Toes -Temperature of Extremity -Other Deformity -Prior Foot Ulcer -Charcot Joint -Prior Amputation -Thick -Discolored -Deformed -Improper Length & Hygeine Left -Posterior Tibial Doppler -Dorsalis Pedis Doppler -Extremity Color -Hair Growth on Legs -Hair Growth on Toes -Temperature of Extremity -Other Deformity -Prior Foot Ulcer -Charcot Joint -Prior Amputation -Thick -Discolored -Deformed -Improper Length & Hygeine Neuropathy Assessment Feet - Top Side and Bottom Communication Assessment Preferred associate merchandiser Required Able to Read Able to Write Communication Tools Right Hearing Abillity Left Hearing Abillity Visual Assistive Devices Teaching Assessment Preferences Barriers to Learning Readiness To Learn Willingness to Engage in Self Management Activies Readiness to Engage in Self Management Activities Anxiety Level Cooperation Perception Interest in Health Problem Education Importance Does Patient Smoke tobacco or other substances Smoking Status Is Patient Diabetic Culture/Episcopalian/Director Of Teenage Activities Cultural/Episcopalian Needs that may affect Treatment Plan Teaching: Wound Center *Welcome to the Wound Center -Person Taught -Teaching Method -Response to teaching Welcome to the Wound Care Center (a) 1 - + WC - Nurse 1 - General Ulcer Measurement Start: 12/05/20 14:39 Freq: Status: Active Protocol: Activity Type Activity Date Activity User E-Sign Co-Sign Detail Recorded Client Recorded Date Recorded By Document 12/05/20 14:42 [facility] [id number] 12/05/20 14:55 [facility] Document 12/12/20 13:14 MW [id number] 12/12/20 13:17 MW Document 12/19/20 13:15 DL [id number] 12/19/20 13:20 DL 12/05/20 12/12/20 12/19/20 14:42 13:14 13:15 Wound Center Nurse 1 #3- L INFERIOR MED ANKLE -Combined with other wound No No -Current Size (cm) - Length 0.9 0.1 5 -Current Size (cm) - Width 0.9 0.1 1.5 -Current Size (cm) - Depth 0.1 0.1 0.1 -Total Square Cm 0.81 0.01 7.5 -Date of Last Picture (Recall this 12/05/20 field) -Photo Taken Yes No No -Epithelialization None Present None Present -Tunneling No No -Undermining/Tunneling No No -Circular Undermining No No -Exudate Amt Medium Medium Small -Exudate Type Serosanguineous Serosanguineous Serosanguineous -Wound Margin Distinct, Flat & Intact Thickened Outline Attached -Granulation Amt Medium (34-66%) Small (1-33%) Small (1-33%) -Granulation Quality Red Corwith Corwith -Slough/Fibrin Yes Yes -Necrosis Amt Medium (34-66%) Medium (34-66%) Large (67-100%) -Necrotic Tissue Type Adherent Slough Adherent Slough Adherent Slough -Structure Exposed N/A N/A -Texture (Sherly-wound Skin Appearance) Assessed, Assessed, Scarring Scarring Localized Edema ,Scarring -Moisture (Sherly-wound Skin Appearance) Assessed Assessed,Dry/ No Abnormality Scaly -Color (Sherly-wound Skin Appearance) Assessed, Assessed, No Abnormality Hemosiderin Hemosiderin Staining Staining -Temperature (Sherly-wound Skin No Abnormality No Abnormality No Abnormality Appearance) (Pt Warm) (Pt Warm) (Pt Warm) -Tenderness on Palpation (Sherly-wound Yes No No Skin Appearance) -Ulcer Cleansing Rinsed/ SOAP AND WATER Wound Cleanser Irrigated with Saline -Foul Odor after Cleansing No No -Anesthetic Used 5% Lidocaine 4% Lidocaine Gel Solution #2- L MED SUPERIOR ANKLE -Combined with other wound No No -Current Size (cm) - Length 0.4 0.1 -Current Size (cm) - Width 1 0.1 -Current Size (cm) - Depth 0.1 0.1 -Total Square Cm 0.4 0.01 -Date of Last Picture (Recall this 12/05/20 field) -Photo Taken Yes No -Epithelialization None Present Large 67-100% -Tunneling No No -Undermining/Tunneling No No -Circular Undermining No No -Exudate Amt Medium Small -Exudate Type Serosanguineous -Wound Margin Distinct, Flat & Intact Outline Attached -Granulation Amt Small (1-33%) None Present (0 %) -Granulation Quality Red N/A -Slough/Fibrin Yes No -Necrosis Amt Large (67-100%) None Present (0 %) -Necrotic Tissue Type Adherent Slough -Structure Exposed N/A -Texture (Sherly-wound Skin Appearance) Assessed, Assessed, Scarring Scarring -Moisture (Sherly-wound Skin Appearance) Assessed Assessed,Dry/ Scaly -Color (Sherly-wound Skin Appearance) Assessed, Assessed, Hemosiderin Hemosiderin Staining Staining -Temperature (Sherly-wound Skin No Abnormality No Abnormality Appearance) (Pt Warm) (Pt Warm) -Tenderness on Palpation (Sherly-wound Yes Yes Skin Appearance) -Ulcer Cleansing Rinsed/ SOAP AND WATER Irrigated with Saline -Foul Odor after Cleansing No No -Anesthetic Used 5% Lidocaine 4% Lidocaine Gel Solution Lower Limb Edema Present Yes No Right Calf (cm) 33.5 Right Ankle (cm) 21 Left Calf (cm) 32 31.2 Left Ankle (cm) 21.5 20 WC - Nurse 2 - General Ulcer CM Notes Start: 12/05/20 14:39 Freq: Status: Active Protocol: Activity Type Activity Date Activity User E-Sign Co-Sign Detail Recorded Client Recorded Date Recorded By Document 12/05/20 15:24 MW [id number] 12/05/20 15:40 MW Edit Result 12/05/20 15:24 MW (1) [id number] 12/07/20 06:41 PL Document 12/12/20 13:17 MW [id number] 12/12/20 13:33 MW Document 12/19/20 13:25 JF [id number] 12/19/20 13:35 JF (1) #2- L MED SUPERIOR ANKLE - Debridement - Subq, 1st 20sq cm Yes => No 12/05/20 12/12/20 12/19/20 15:24 13:17 13:25 Wound Center Nurse 2 #3- L INFERIOR MED ANKLE -Time 15:26 13:19 13:26 -Correct Patient Yes Yes Yes -Correct Side, Site, Position Yes Yes Yes -Correct Procedure Yes Yes Yes -Procedure Performed Yes Yes Yes -Type of Procedure Debridement Debridement Debridement -Clinical Debridement Subcutaneous Subcutaneous Subcutaneous -Tissue Removed Subcutaneous Subcutaneous Subcutaneous -Post Debridement (cm) - Length 0.9 0.9 1.8 -Post Debridement (cm) - Width 0.9 0.7 0.8 -Post Debridement (cm) - Depth 0.1 0.1 0.1 -Total Square (Post) (cm) 0.81 0.63 1.44 -Area of Debridement (cm) - Length 0.9 0.9 1.8 -Area of Debridement (cm) - Width 0.9 0.7 0.8 -Total Square (Area) (cm) 0.81 0.63 1.44 -Tunneling No No No -Undermining/Tunneling No No No -Circular Undermining No No No -Wound/Ulcer Outcome Not Healed Not Healed -Ulcer Cleansing Rinsed/ Rinsed/ Rinsed/ Irrigated with Irrigated with Irrigated with Saline Saline Saline -Foul Odor after Cleansing No No No -Bioengineered Tissue No No No -Injectable Lidocaine (%) 2 -Lidocaine (ml) 5 -Bleeding Controlled with Pressure Pressure Pressure -Offloading No No No -Treatment Response Procedure Procedure Procedure Tolerated Well Tolerated Well Tolerated Well -Debridement - Subq, 1st 20sq cm Yes Yes Yes #2- L MED SUPERIOR ANKLE -Time 15:26 13:18 -Correct Patient Yes Yes -Correct Side, Site, Position Yes Yes -Correct Procedure Yes Yes -Procedure Performed Yes No -Type of Procedure Debridement -Clinical Debridement Subcutaneous -Tissue Removed Subcutaneous -Post Debridement (cm) - Length 0.4 0 -Post Debridement (cm) - Width 1.0 0 -Post Debridement (cm) - Depth 0.1 0 -Total Square (Post) (cm) 0.40 0 -Area of Debridement (cm) - Length 0.4 -Area of Debridement (cm) - Width 1.0 -Total Square (Area) (cm) 0.40 -Tunneling No -Undermining/Tunneling No -Circular Undermining No -Wound/Ulcer Outcome Not Healed Healed- Epithelialized -Ulcer Cleansing Rinsed/ Irrigated with Saline -Foul Odor after Cleansing No -Bioengineered Tissue No -Bleeding Controlled with Pressure -Offloading No -Treatment Response Procedure Tolerated Well -Debridement - Subq, 1st 20sq cm No Pain Scale: 0-10 Numeric Is Patient Pain Free? Yes Yes Yes WC - Nurse 3 - General Ulcer D/C NN Start: 12/05/20 14:39 Freq: Status: Active Protocol: Activity Type Activity Date Activity User E-Sign Co-Sign Detail Recorded Client Recorded Date Recorded By Document 12/05/20 16:01 AK [id number] 12/05/20 16:04 AK Document 12/08/20 11:44 ML [id number] 12/08/20 11:45 ML Document 12/12/20 14:04 PL [id number] 12/14/20 08:05 PL 12/05/20 12/08/20 12/12/20 16:01 11:44 14:04 Wound Care Nurse 3 #3- L INFERIOR MED ANKLE -Ulcer Cleansing Rinsed/ Irrigated with Saline -Foul Odor after Cleansing No -Negative Pressure Wound Therapy N/A Left -Multi-Layered Wrap Application Unna Boot - Unna Boot - Unna Boot - Left ($) Left ($) Left ($) Vital Signs Temperature (97.8 F-99.1 F) 97.0 F L Temperature Source Temporal Pulse Rate (60-100) 73 Pulse Location Monitor Respiratory Rate (12-18) 16 Respiratory rate source Observation Blood Pressure (90/60-120/80) 118/60 Blood Pressure Mean (mm Hg) 79 Source Monitor Position Sitting Blood Pressure Location Left Arm Pain Scale: 0-10 Numeric Is Patient Pain Free? Yes WC - Visit Discharge Discharge Condition Stable Ambulatory Status Ambulatory Transportation Private Auto Accompanied by Medication Reconcilliation completed & Yes provided to patient/care provider Clinical Summary of Care Provided Yes Assessment/Plan Assessment/Plan (1) Venous ulcer of left leg: CODE(S): I83.029 - Varicose veins of left lower extremity with ulcer of unspecified site (2) Cellulitis: CODE(S): L03.90 - Cellulitis, unspecified PLAN: 1. The wound culture grew a anaerobe as well as the MSSA. I am going to change the antibiotic to Amoxicillin 875mg BID for 10 days. 2. No unna boot today. Will provide compression with an LOTTIE and she is going to elevate the leg to above the level of the heart when sitting. 3. start Lyrica 25 mg 2 hours prior to bed each night. 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 4. RT WCC in 1 week.
[2020-12-26 13:06] VITALS: BP 132/70; PULSE 76; TEMP 36.3; BMI 49.6
--- NOTE | 2020-12-26 13:40 | PCM.WC.PN ---
History of Present Illness Date of Service: 12/26/20 Chief Complaint: Venous leg ulceration, left lower extremity History of Wound: This is a 76-year-old Rastafarian female who presents with a 6 week history of ulceration in the left medial supramalleolar area. The patient admits to having a prior episode of ulceration in this area. She claims to sleep in a flat position at night. However, during the day she spends a great deal of time and in idle sitting position. She denies any history of thrombophlebitis. She was evaluated in the wound center 1 week ago, and treated with an Unna boot. She presents at this time, where it is noted that the ulceration in the left lower extremity is now completely healed. 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 Patient wears compression stockings which she obtains [id number]. 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 Subjective Subjective Clear denies fever/night sweats/shaking chills. She continues to have severe pain in the left ankle area. She was not able to tolerate Lyrica due to dizziness and difficulty walking at night. Her was able to assist her. She only took 2 doses. She can not take an NSAID due to the chronic anticoagulation with Warfarin. She rates the pain as a 10/10. She is taking Tramadol 50-100mg every 6 hours and it only helps a little. I suspect she may have complex regional pain syndrome. She is very sensitive to most medications she has taken and frequently has adverse reactions. I reviewed the EMR and she has never had a XRAY of the left ankle. She does not want to get an XRAY because she had 1 at [facility] not too long ago and asks if we can get that report. It would be helpful in making a definitive diagnosis of complex regional pain S. Objective Data Objective Data Vital Signs: Vital Signs Temp Pulse Resp BP 97.3 F L 76 20 H 132/70 H 12/26/20 13:06 12/26/20 13:06 12/19/20 13:15 12/26/20 13:06 Oxygen Delivery Method Room Air Weight: 271 lb 2.697 oz Body Mass Index (BMI) 49.6 Lab / Micro Data Result Diagrams: 12/05/20 16:16 Micro: Microbiology 12/05/20 15:35 Wound Abcess - Ankle Gram Stain - Final 12/05/20 15:35 Wound Abcess - Ankle Wound Culture - Final Staphylococcus aureus 12/05/20 15:35 Wound Abcess - Ankle Anaerobic Culture - Final Anaerobic cocci Charges/Coding Procedures Integumentary [id number]: [id number] Debride infected skin Physical Exam Skin Wound Narrative: The left ankle is more swollen today and there is erythema and increased warmth to touch. The wound over the medial malleolus is covered with an adherent white film. There is some dried drainage around the wound. The superior wound on the medial left ankle is healed. She continues to have petechiae on both distal LE's due to venous hypertension and incompetent valves. She is also on Coumadin. The skin over both distal LE's is fibrotic from chronic venous stasis for many years and the skin is inelastic and hyperpigmented. She has been using a moisturizer and there is less cracking of the skin and it is no longer dry and scaly. The wound was debrided and there is no tunnelling and no undermining. A culture was taken from the base of the wound. Debridement Note Debridement Note Wound debrided: L medial malleolus venous stasis ulcer Laterality: Left Anesthesia Used: 5% Lidocaine Gel and - (The area was infiltrated with 2% lidocaine after Cetacain spray to numb the skin) Depth: Down to and including healthy tissue and in the subcutaneous layer Percentage of wound debrided: 100 Instrument Used: 3mm curette and Forceps Tissue Removed: eschar/biofilm the base of the wound is white and fibrous Severity: Limited To Skin Breakdown Amount of bleeding with debridement: Mild Bleeding Controlled with: Pressure Patient tolerated procedure: Patient tolerated procedure well Operative Diagnosis: infected venous stasis ulcer Post-Debridement Measurements and Additional Note: Post-Debridement Measurements/Treatment WC - Nurse 1 - General Ulcer Assessment Start: 12/05/20 14:39 Freq: Status: Active Protocol: MATEOEXAshwin Activity Type Activity Date Activity User E-Sign Co-Sign Detail Recorded Client Recorded Date Recorded By Document 12/05/20 14:42 [facility] [id number] 12/05/20 14:55 BMF Document 12/08/20 11:44 ML [id number] 12/08/20 11:45 ML Document 12/12/20 13:14 MW [id number] 12/12/20 13:17 MW Document 12/19/20 13:15 DL [id number] 12/19/20 13:20 DL Document 12/26/20 13:06 KR [id number] 12/26/20 13:08 KR 12/05/20 12/08/20 12/12/20 14:42 11:44 13:14 WC - Today's Visit Information Type of service Initial Visit Nurse-only Follow-up Visit Visit (Physician/PREPARATION SUPERVISOR FREEZING ) Arrival Mode Ambulatory Ambulatory Ambulatory Transfer Assistance None None None Accompanied by Patient Identification Verified (Name & Yes Yes Yes ) Patient Requires Transmission-Based No No No Precautions Safety Precautions NA Height and Weight Height 5 ft 2 in Weight 271 lb 2.697 oz Weight in Pounds 271.2 lbs Weight Measurement Method Estimated by Patient Body Mass Index (BMI) 49.6 49.6 49.6 BMI Classification Obese Obese Obese BSA - Kaitlyn 2.18 Vital Signs Temperature (97.8 F-99.1 F) 97.0 F L 97.4 F L Temperature Source Temporal Temporal Pulse Rate (60-100) 73 70 Pulse Location Monitor Monitor Respiratory Rate (12-18) 16 16 Respiratory rate source Observation Observation Oxygen Delivery Method Room Air Blood Pressure (90/60-120/80) 118/60 143/64 H Blood Pressure Mean (mm Hg) 79 90 Source Monitor Monitor Position Sitting Blood Pressure Location Left Arm Left Arm Have you changed medications since your No No last visit? Any new allergies or adverse reactions No No Had a fall/change in ADL's that may No No increase risk of falls Signs or symptoms of abuse and/or No No neglect since last visit Have you been in the hospital since your No No last visit? Has dressing in place as prescribed Yes Yes Has compression in place as prescribed Yes Yes Has offloadiing in place as prescribed N/A N/A Experienced any changes in pain level or No No management History Since Last Visit- (Skip if this is Patient's initial visit) Left Footwear Regular Shoe Regular Shoe Regular Shoe Right Footwear Regular Shoe Regular Shoe Regular Shoe Pain Scale: 0-10 Numeric Is Patient Pain Free? Yes Yes Yes Lower Extremity Assessment/ Foot Assessment/ Toe Nail Assessment Right -Posterior Tibial Doppler Monophasic -Dorsalis Pedis Doppler Monophasic -Extremity Color Hyperpigmented, Hemosiderin -Hair Growth on Legs No -Hair Growth on Toes No -Temperature of Extremity Warm -Other Deformity No -Prior Foot Ulcer No -Charcot Joint No -Prior Amputation No -Thick Yes -Discolored No -Deformed No -Improper Length & Hygeine No Left -Posterior Tibial Doppler Monophasic -Dorsalis Pedis Doppler Monophasic -Extremity Color Hyperpigmented, Hemosiderin -Hair Growth on Legs No -Hair Growth on Toes No -Temperature of Extremity Warm -Other Deformity No -Prior Foot Ulcer No -Charcot Joint No -Prior Amputation No -Thick Yes -Discolored No -Deformed No -Improper Length & Hygeine No Neuropathy Assessment Feet - Top Side and Bottom <Entered> (a) Communication Assessment Preferred language Sudanese Inspector [employer] Detail Required No Able to Read Yes Able to Write Yes Communication Tools None Right Hearing Abillity Normal Left Hearing Abillity Normal Visual Assistive Devices Glasses Teaching Assessment Preferences Verbal,Written, Audio/Visual, Demonstration Barriers to Learning None Readiness To Learn Excellent Willingness to Engage in Self Management High Activies Readiness to Engage in Self Management High Activities Anxiety Level Calm Cooperation Cooperative Perception Coherent Interest in Health Problem Asks Questions Education Importance Acknowledges Need Does Patient Smoke tobacco or other No substances Smoking Status Never smoker Is Patient Diabetic No 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 Cultural/Protestant Needs that may affect No Treatment Plan Teaching: Wound Center *Welcome to the Wound Center -Person Taught Patient,Family -Teaching Method Discussion -Response to teaching Verbalize understanding Welcome to the Wound Care Center Sudanese 12/19/20 12/26/20 13:15 13:06 - Today's Visit Information Type of service Follow-up Visit Follow-up Visit (Physician/PREPARATION SUPERVISOR FREEZING (Physician/PREPARATION SUPERVISOR FREEZING ) ) Arrival Mode Ambulatory Ambulatory Transfer Assistance None Accompanied by Patient Identification Verified (Name & Yes Yes ) Patient Requires Transmission-Based No Precautions Safety Precautions Height and Weight Height Weight Weight in Pounds Weight Measurement Method Body Mass Index (BMI) 49.6 49.6 BMI Classification Obese Obese BSA - Kaitlyn Vital Signs Temperature (97.8 F-99.1 F) 96.9 F L 97.3 F L Temperature Source Temporal Temporal Pulse Rate (60-100) 78 76 Pulse Location Monitor Monitor Respiratory Rate (12-18) 20 H Respiratory rate source Observation Oxygen Delivery Method Blood Pressure (90/60-120/80) 139/59 H 132/70 H Blood Pressure Mean (mm Hg) 85 90 Source Monitor Monitor Position Sitting Blood Pressure Location Left Arm Have you changed medications since your No No last visit? Any new allergies or adverse reactions No No Had a fall/change in ADL's that may No No increase risk of falls Signs or symptoms of abuse and/or No No neglect since last visit Have you been in the hospital since your No No last visit? Has dressing in place as prescribed Yes Yes Has compression in place as prescribed Yes Yes Has offloadiing in place as prescribed N/A N/A Experienced any changes in pain level or No No management History Since Last Visit- (Skip if this is Patient's initial visit) Left Footwear Regular Shoe Right Footwear Regular Shoe Pain Scale: 0-10 Numeric Is Patient Pain Free? Yes Yes Lower Extremity Assessment/ Foot Assessment/ Toe Nail Assessment Right -Posterior Tibial Doppler -Dorsalis Pedis Doppler -Extremity Color -Hair Growth on Legs -Hair Growth on Toes -Temperature of Extremity -Other Deformity -Prior Foot Ulcer -Charcot Joint -Prior Amputation -Thick -Discolored -Deformed -Improper Length & Hygeine Left -Posterior Tibial Doppler -Dorsalis Pedis Doppler -Extremity Color -Hair Growth on Legs -Hair Growth on Toes -Temperature of Extremity -Other Deformity -Prior Foot Ulcer -Charcot Joint -Prior Amputation -Thick -Discolored -Deformed -Improper Length & Hygeine Neuropathy Assessment Feet - Top Side and Bottom Communication Assessment Preferred speech language specialist Required Able to Read Able to Write Communication Tools Right Hearing Abillity Left Hearing Abillity Visual Assistive Devices Teaching Assessment Preferences Barriers to Learning Readiness To Learn Willingness to Engage in Self Management Activies Readiness to Engage in Self Management Activities Anxiety Level Cooperation Perception Interest in Health Problem Education Importance Does Patient Smoke tobacco or other substances Smoking Status Is Patient Diabetic 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 Cultural/Protestant Needs that may affect Treatment Plan Teaching: Wound Center *Welcome to the Wound Center -Person Taught -Teaching Method -Response to teaching Welcome to the Wound Care Center (a) 1 - + WC - Nurse 1 - General Ulcer Measurement Start: 12/05/20 14:39 Freq: Status: Active Protocol: Activity Type Activity Date Activity User E-Sign Co-Sign Detail Recorded Client Recorded Date Recorded By Document 12/05/20 14:42 BMF [id number] 12/05/20 14:55 BMF Document 12/12/20 13:14 MW [id number] 12/12/20 13:17 MW Document 12/19/20 13:15 DL [id number] 12/19/20 13:20 DL Document 12/26/20 13:06 KR [id number] 12/26/20 13:08 KR 12/05/20 12/12/20 12/19/20 14:42 13:14 13:15 Wound Center Nurse 1 #3- L INFERIOR MED ANKLE -Combined with other wound No No -Current Size (cm) - Length 0.9 0.1 5 -Current Size (cm) - Width 0.9 0.1 1.5 -Current Size (cm) - Depth 0.1 0.1 0.1 -Total Square Cm 0.81 0.01 7.5 -Date of Last Picture (Recall this 12/05/20 field) -Photo Taken Yes No No -Epithelialization None Present None Present -Tunneling No No -Undermining/Tunneling No No -Circular Undermining No No -Exudate Amt Medium Medium Small -Exudate Type Serosanguineous Serosanguineous Serosanguineous -Wound Margin Distinct, Flat & Intact Thickened Outline Attached -Granulation Amt Medium (34-66%) Small (1-33%) Small (1-33%) -Granulation Quality Red Arthur Arthur -Slough/Fibrin Yes Yes -Necrosis Amt Medium (34-66%) Medium (34-66%) Large (67-100%) -Necrotic Tissue Type Adherent Slough Adherent Slough Adherent Slough -Structure Exposed N/A N/A -Texture (Sherly-wound Skin Appearance) Assessed, Assessed, Scarring Scarring Localized Edema ,Scarring -Moisture (Sherly-wound Skin Appearance) Assessed Assessed,Dry/ No Abnormality Scaly -Color (Sherly-wound Skin Appearance) Assessed, Assessed, No Abnormality Hemosiderin Hemosiderin Staining Staining -Temperature (Sherly-wound Skin No Abnormality No Abnormality No Abnormality Appearance) (Pt Warm) (Pt Warm) (Pt Warm) -Tenderness on Palpation (Sherly-wound Yes No No Skin Appearance) -Ulcer Cleansing Rinsed/ SOAP AND WATER Wound Cleanser Irrigated with Saline -Foul Odor after Cleansing No No -Anesthetic Used 5% Lidocaine 4% Lidocaine Gel Solution #2- L MED SUPERIOR ANKLE -Combined with other wound No No -Current Size (cm) - Length 0.4 0.1 -Current Size (cm) - Width 1 0.1 -Current Size (cm) - Depth 0.1 0.1 -Total Square Cm 0.4 0.01 -Date of Last Picture (Recall this 12/05/20 field) -Photo Taken Yes No -Epithelialization None Present Large 67-100% -Tunneling No No -Undermining/Tunneling No No -Circular Undermining No No -Exudate Amt Medium Small -Exudate Type Serosanguineous -Wound Margin Distinct, Flat & Intact Outline Attached -Granulation Amt Small (1-33%) None Present (0 %) -Granulation Quality Red N/A -Slough/Fibrin Yes No -Necrosis Amt Large (67-100%) None Present (0 %) -Necrotic Tissue Type Adherent Slough -Structure Exposed N/A -Texture (Sherly-wound Skin Appearance) Assessed, Assessed, Scarring Scarring -Moisture (Sherly-wound Skin Appearance) Assessed Assessed,Dry/ Scaly -Color (Sherly-wound Skin Appearance) Assessed, Assessed, Hemosiderin Hemosiderin Staining Staining -Temperature (Sherly-wound Skin No Abnormality No Abnormality Appearance) (Pt Warm) (Pt Warm) -Tenderness on Palpation (Sherly-wound Yes Yes Skin Appearance) -Ulcer Cleansing Rinsed/ SOAP AND WATER Irrigated with Saline -Foul Odor after Cleansing No No -Anesthetic Used 5% Lidocaine 4% Lidocaine Gel Solution Lower Limb Edema Present Yes No Right Calf (cm) 33.5 Right Ankle (cm) 21 Left Calf (cm) 32 31.2 Left Ankle (cm) 21.5 20 12/26/20 13:06 Wound Center Nurse 1 #3- L INFERIOR MED ANKLE -Combined with other wound -Current Size (cm) - Length 5 -Current Size (cm) - Width 2.3 -Current Size (cm) - Depth 0.1 -Total Square Cm 11.5 -Date of Last Picture (Recall this field) -Photo Taken -Epithelialization -Tunneling -Undermining/Tunneling -Circular Undermining -Exudate Amt Small -Exudate Type Serosanguineous -Wound Margin Distinct, Outline Attached -Granulation Amt Medium (34-66%) -Granulation Quality Red -Slough/Fibrin -Necrosis Amt Small (1-33%) -Necrotic Tissue Type Adherent Slough -Structure Exposed -Texture (Sherly-wound Skin Appearance) Assessed, Scarring -Moisture (Sherly-wound Skin Appearance) Assessed,Dry/ Scaly -Color (Sherly-wound Skin Appearance) No Abnormality, Assessed -Temperature (Sherly-wound Skin No Abnormality Appearance) (Pt Warm) -Tenderness on Palpation (Sherly-wound No Skin Appearance) -Ulcer Cleansing Rinsed/ Irrigated with Saline -Foul Odor after Cleansing No -Anesthetic Used 5% Lidocaine Gel #2- L MED SUPERIOR ANKLE -Combined with other wound -Current Size (cm) - Length -Current Size (cm) - Width -Current Size (cm) - Depth -Total Square Cm -Date of Last Picture (Recall this field) -Photo Taken -Epithelialization -Tunneling -Undermining/Tunneling -Circular Undermining -Exudate Amt -Exudate Type -Wound Margin -Granulation Amt -Granulation Quality -Slough/Fibrin -Necrosis Amt -Necrotic Tissue Type -Structure Exposed -Texture (Sherly-wound Skin Appearance) -Moisture (Sherly-wound Skin Appearance) -Color (Sherly-wound Skin Appearance) -Temperature (Sherly-wound Skin Appearance) -Tenderness on Palpation (Sherly-wound Skin Appearance) -Ulcer Cleansing -Foul Odor after Cleansing -Anesthetic Used Lower Limb Edema Present Right Calf (cm) Right Ankle (cm) Left Calf (cm) 33 Left Ankle (cm) 24.9 WC - Nurse 2 - General Ulcer CM Notes Start: 12/05/20 14:39 Freq: Status: Active Protocol: Activity Type Activity Date Activity User E-Sign Co-Sign Detail Recorded Client Recorded Date Recorded By Document 12/05/20 15:24 MW [id number] 12/05/20 15:40 MW Edit Result 12/05/20 15:24 MW (1) [id number] 12/07/20 06:41 PL Document 12/12/20 13:17 MW [id number] 12/12/20 13:33 MW Document 12/19/20 13:25 JF [id number] 12/19/20 13:35 JF Document 12/26/20 13:16 MW [id number] 12/26/20 13:32 MW (1) #2- L MED SUPERIOR ANKLE - Debridement - Subq, 1st 20sq cm Yes => No 12/05/20 12/12/20 12/19/20 15:24 13:17 13:25 Wound Center Nurse 2 #3- L INFERIOR MED ANKLE -Time 15: 13:19 13:26 -Correct Patient Yes Yes Yes -Correct Side, Site, Position Yes Yes Yes -Correct Procedure Yes Yes Yes -Procedure Performed Yes Yes Yes -Type of Procedure Debridement Debridement Debridement -Clinical Debridement Subcutaneous Subcutaneous Subcutaneous -Tissue Removed Subcutaneous Subcutaneous Subcutaneous -Post Debridement (cm) - Length 0.9 0.9 1.8 -Post Debridement (cm) - Width 0.9 0.7 0.8 -Post Debridement (cm) - Depth 0.1 0.1 0.1 -Total Square (Post) (cm) 0.81 0.63 1.44 -Area of Debridement (cm) - Length 0.9 0.9 1.8 -Area of Debridement (cm) - Width 0.9 0.7 0.8 -Total Square (Area) (cm) 0.81 0.63 1.44 -Tunneling No No No -Undermining/Tunneling No No No -Circular Undermining No No No -Wound/Ulcer Outcome Not Healed Not Healed -Ulcer Cleansing Rinsed/ Rinsed/ Rinsed/ Irrigated with Irrigated with Irrigated with Saline Saline Saline -Foul Odor after Cleansing No No No -Bioengineered Tissue No No No -Injectable Lidocaine (%) 2 -Lidocaine (ml) 5 -Bleeding Controlled with Pressure Pressure Pressure -Offloading No No No -Treatment Response Procedure Procedure Procedure Tolerated Well Tolerated Well Tolerated Well -Debridement - Subq, 1st 20sq cm Yes Yes Yes #2- L MED SUPERIOR ANKLE -Time 15: 13:18 -Correct Patient Yes Yes -Correct Side, Site, Position Yes Yes -Correct Procedure Yes Yes -Procedure Performed Yes No -Type of Procedure Debridement -Clinical Debridement Subcutaneous -Tissue Removed Subcutaneous -Post Debridement (cm) - Length 0.4 0 -Post Debridement (cm) - Width 1.0 0 -Post Debridement (cm) - Depth 0.1 0 -Total Square (Post) (cm) 0.40 0 -Area of Debridement (cm) - Length 0.4 -Area of Debridement (cm) - Width 1.0 -Total Square (Area) (cm) 0.40 -Tunneling No -Undermining/Tunneling No -Circular Undermining No -Wound/Ulcer Outcome Not Healed Healed- Epithelialized -Ulcer Cleansing Rinsed/ Irrigated with Saline -Foul Odor after Cleansing No -Bioengineered Tissue No -Bleeding Controlled with Pressure -Offloading No -Treatment Response Procedure Tolerated Well -Debridement - Subq, 1st 20sq cm No Pain Scale: 0-10 Numeric Is Patient Pain Free? Yes Yes Yes 12/26/20 13:16 Wound Center Nurse 2 #3- L INFERIOR MED ANKLE -Time 13:17 -Correct Patient Yes -Correct Side, Site, Position Yes -Correct Procedure Yes -Procedure Performed Yes -Type of Procedure Debridement -Clinical Debridement Subcutaneous -Tissue Removed Subcutaneous -Post Debridement (cm) - Length 1.8 -Post Debridement (cm) - Width 1.7 -Post Debridement (cm) - Depth 0.2 -Total Square (Post) (cm) 3.06 -Area of Debridement (cm) - Length 1.8 -Area of Debridement (cm) - Width 1.7 -Total Square (Area) (cm) 3.06 -Tunneling No -Undermining/Tunneling No -Circular Undermining No -Wound/Ulcer Outcome Not Healed -Ulcer Cleansing Rinsed/ Irrigated with Saline -Foul Odor after Cleansing No -Bioengineered Tissue No -Injectable Lidocaine (%) 2 -Lidocaine (ml) 5 -Bleeding Controlled with Pressure -Offloading No -Treatment Response Procedure Tolerated Well -Debridement - Subq, 1st 20sq cm Yes #2- L MED SUPERIOR ANKLE -Time -Correct Patient -Correct Side, Site, Position -Correct Procedure -Procedure Performed -Type of Procedure -Clinical Debridement -Tissue Removed -Post Debridement (cm) - Length -Post Debridement (cm) - Width -Post Debridement (cm) - Depth -Total Square (Post) (cm) -Area of Debridement (cm) - Length -Area of Debridement (cm) - Width -Total Square (Area) (cm) -Tunneling -Undermining/Tunneling -Circular Undermining -Wound/Ulcer Outcome -Ulcer Cleansing -Foul Odor after Cleansing -Bioengineered Tissue -Bleeding Controlled with -Offloading -Treatment Response -Debridement - Subq, 1st 20sq cm Pain Scale: 0-10 Numeric Is Patient Pain Free? Yes WC - Nurse 3 - General Ulcer D/C NN Start: 12/05/20 14:39 Freq: Status: Active Protocol: Activity Type Activity Date Activity User E-Sign Co-Sign Detail Recorded Client Recorded Date Recorded By Document 12/05/20 16:01 AK [id number] 12/05/20 16:04 AK Document 12/08/20 11:44 ML [id number] 12/08/20 11:45 ML Document 12/12/20 14:04 PL [id number] 12/14/20 08:05 PL Document 12/19/20 13:51 BMF [id number] 12/19/20 13:52 BMF 12/05/20 12/08/20 12/12/20 16:01 11:44 14:04 Wound Care Nurse 3 #3- L INFERIOR MED ANKLE -Ulcer Cleansing Rinsed/ Irrigated with Saline -Foul Odor after Cleansing No -Negative Pressure Wound Therapy N/A -Primary Dressing Applied -Primary Dressing Covered/Secured with -Other Covering -Fibracol Plus 4x4 Left -Multi-Layered Wrap Application Unna Boot - Unna Boot - Unna Boot - Left ($) Left ($) Left ($) -Compression Wrap Treatment Response Vital Signs Temperature (97.8 F-99.1 F) 97.0 F L Temperature Source Temporal Pulse Rate (60-100) 73 Pulse Location Monitor Respiratory Rate (12-18) 16 Respiratory rate source Observation Blood Pressure (90/60-120/80) 118/60 Blood Pressure Mean (mm Hg) 79 Source Monitor Position Sitting Blood Pressure Location Left Arm Pain Scale: 0-10 Numeric Is Patient Pain Free? Yes WC - Visit Discharge Discharge Condition Stable Ambulatory Status Ambulatory Transportation Private Auto Accompanied by Medication Reconcilliation completed & Yes provided to patient/care provider Clinical Summary of Care Provided Yes 12/19/20 13:51 Wound Care Nurse 3 #3- L INFERIOR MED ANKLE -Ulcer Cleansing Rinsed/ Irrigated with Saline -Foul Odor after Cleansing No -Negative Pressure Wound Therapy -Primary Dressing Applied Fibracol Plus 4x4 -Primary Dressing Covered/Secured with Dry Gauze & Roll Gauze, Secured with Tape,Other -Other Covering drsg per ak customer advocate -Fibracol Plus 4x4 1 Left -Multi-Layered Wrap Application -Compression Wrap Seven Wrap Treatment Response Procedure Tolerated Well Vital Signs Temperature (97.8 F-99.1 F) Temperature Source Pulse Rate (60-100) Pulse Location Respiratory Rate (12-18) Respiratory rate source Blood Pressure (90/60-120/80) Blood Pressure Mean (mm Hg) Source Position Blood Pressure Location Pain Scale: 0-10 Numeric Is Patient Pain Free? Yes WC - Visit Discharge Discharge Condition Stable Ambulatory Status Ambulatory Transportation Private Auto Accompanied by Medication Reconcilliation completed & provided to patient/care provider Clinical Summary of Care Provided Assessment/Plan Assessment/Plan (1) Venous ulcer of left leg: CODE(S): I83.029 - Varicose veins of left lower extremity with ulcer of unspecified site (2) Complex regional pain syndrome I of lower limb: CODE(S): G90.529 - Complex regional pain syndrome I of unspecified lower limb (3) Cellulitis: CODE(S): L03.90 - Cellulitis, unspecified (4) Venous incompetence: CODE(S): I87.2 - Venous insufficiency (chronic) (peripheral) PLAN: 1. DC the Lyrica 2. Start Gabapentin 100 mg BID at breakfast and supper. 3. She is using Tramadol 100 mg every 6 hours for pain - I explained that Gabapentin is one of the main stays of tx of complex Regional pain Syndrome and I think when the get the titration of the dose right it will provide better relief of the pain. She is agreeable to trying the Gabapentin. 4. RT WCC in 1 week. 5. she is just finishing a course of Amoxicillin for MSSA cellulitis
== END 2020-12-28 23:59 ==
LOC: WC 13:00
PROVIDERS: PCP Family Medicine; Visit Provider Internal Medicine
DX: I83.023 Varicose veins of left lower extremity with ulcer of ankle (principal); L97.321 Non-pressure chronic ulcer of left ankle limited to breakdown of skin; E66.9 Obesity, unspecified; Z68.42 Body mass index [BMI] 45.0-49.9, adult; R60.0 Localized edema; R23.3 Spontaneous ecchymoses; I51.9 Heart disease, unspecified; Z79.01 Long term (current) use of anticoagulants; R26.2 Difficulty in walking, not elsewhere classified; R42 Dizziness and giddiness; G90.50 Complex regional pain syndrome I, unspecified
CPT/HCPCS: 11042; 29580; 36415; 85025; 85610; 85652; 87070; 87075; 87077; 87186; 87205; 87640; 99213; G0463

== ENCOUNTER → 2020-12-26 | Outpatient (CLI) | payer OTHER, SELFPAY | END | disposition home or self-care (01) | PROVIDERS: PCP Family Medicine; Referring Provider Internal Medicine; Visit Provider Internal Medicine | DX: L97.329 Non-pressure chronic ulcer of left ankle with unspecified severity (principal) | CPT/HCPCS: 87070; 87075; 87077; 87186; 87205 ==

== ENCOUNTER 2021-01-18 14:00 | Outpatient (RCR) | payer OTHER, SELFPAY ==
[2020-12-29 00:36] VITALS: BP 132/70; PULSE 76; RESP 20; TEMP 36.3; BMI 49.6
--- NOTE | 2021-01-02 13:07 | PN.PCM_ITS ---
History of Present Illness Date of Service: 01/02/21 Chief Complaint: Venous leg ulceration, left lower extremity History of Wound: This is a 76-year-old [employer] female who presents with a 6 week history of ulceration in the left medial supramalleolar area. The patient admits to having a prior episode of ulceration in this area. She claims to sleep in a flat position at night. However, during the day she spends a great deal of time and in idle sitting position. She denies any history of thrombo phlebitis. She was evaluated in the wound center 1 week ago, and treated with an Unna boot. She presents at this time, where it is noted that the ulceration in the left lower extremity is now completely healed. 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 Patient wears compre ssion stockings which she obtains [id number]. 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 Subjective Subjective She has not been taking the Gabapentin. She took it once and did not think it helped as much as Tramadol so she quit taking the Gabapentin and has only been taking the Tramaol. The Gabapentin did not make her sleepy or lightheaded. She is taking Tramadol 100 mg every 6 hours. She says the pain is somewhat better. She denies fevers/shaking chills/night sweats. She has been on Doxycycline 100 mg BID for the past week because she has grown MSSA in the past. The culture we took last week grew Enterococcus faecalis and corynebacterium.. She is using an LOTTIE wrap for compression but, she admits to being on her feet too much and not elevating. She denies diarrhea, mouth sores and vaginal DC or itching. Objective Data Objective Data Vital Signs: Vital Signs Temp Pulse Resp BP 97.3 F L 76 20 H 132/70 H 12/29/20 00:36 12/29/20 00:36 12/29/20 00:36 12/29/20 00:36 Weight: 271 lb 2.697 oz Body Mass Index (BMI) 49.6 Charges/Coding Visit Charges Office Visits / Consults: 99632 OV L3 Est Physical Exam Skin Wound Narrative: The superior wound on the Left medial ankle is completely heale d. The more distal ulceration has a small white fibrotic area that I suspect is scarring. The Erythema and swelling are better today since she has had 7 days of Doxycycline BID. There is still a small amount of swelling at the ankles only and a a 1 cm rim of redness around the distal ulceration. There is no purulent DC. There is a mild increase in warmth to touch when compared to the RLE. Still with small petechiae of both lower extremities distal to the knee secondary to increased venous hypertension. Debridement Note Debridement Note No debridement was completed: No debridement was completed today Assessment/Plan Assessment/Plan (1) Complex regional pain syndrome I of lower limb: CODE(S): G90.529 - Complex regional pain syndrome I of unspecified lower limb (2) Venous ulcer of left leg: CODE(S): I83.029 - Varicose veins of left lower extremity with ulcer of unspecified site (3) Cellulitis: CODE(S): L03.90 - Cellulitis, unspecified (4) Chronic anticoagulation: CODE(S): Z79.01 - intermodal customer service (current) use of anticoagulants (5) Venous incompetence: CODE(S): I87.2 - Venous insufficiency (chronic) (peripheral) PLAN: 1. XRAY of the Left foot and ankle - pt refused and would like us to get the XRAY she had done at [facility] in october prior to being referred to the [facility] 2. Augmentin 875 BID X 7 more days to treat the Enterococcus Faecalis since the cellulitis is better but, not completely resolved. 3. Shelbie will make an appt for her to follow up with Dr. Griggs for suspected regional pain syndrome. 4. She was instructed to take the Gabapentin 100 mg after breakfast and 100 mg 1 hour prior to bedtime and she will call me in 4-5 days to let me know how she is doing. 6. Continue the same dressing and the LOTTIE wrap for compression. I told her once again today that if this ulcer is going to stay healed she will need to stay off her feet for long periods of time and elevate more to help control the swelling. Controlling the edema is critical to keeping the wound closed since there is so much scarring and fibrosis that the skin is no longer elastic and when it swells it will break open from the venous HTN and weep/breakdown. She has had very long standing venous insufficiency.
[2021-01-02 13:10] VITALS: BP 112/73; PULSE 123; RESP 18; TEMP 36.4; BMI 49.6
--- NOTE | 2021-01-11 16:05 | PCM.WC.PN ---
History of Present Illness Date of Service: 01/11/21 Chief Complaint: Venous leg ulceration, left lower extremity History of Wound: This is a 76-year-old [employer] female who presents with a 6 week history of ulceration in the left medial supramalleolar area. The patient admits to having a prior episode of ulceration in this area. She claims to sleep in a flat position at night. However, during the day she spends a great deal of time and in idle sitting position. She denies any history of thrombophlebitis. She was evaluated in the wound center 1 week ago, and treated with an Unna boot. She presents at this time, where it is noted that the ulceration in the left lower extremity is now completely healed. 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 Patient wears compression stockings which she obtains [id number]. 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 Progress of Wound: 01/11/2021?transfer care to myself. Patient referred to pain management for her chronic pain. She did respond well to the gabapentin and is taking this appropriately and has had improvement. With regard to her wound, there is no new concerns and the patient is tolerating her antibiotics well without any side effects. Objective Data Objective Data Vital Signs: Vital Signs Temp Pulse Resp BP 97.5 F L 123 H 18 112/73 01/02/21 13:10 01/02/21 13:10 01/02/21 13:10 01/02/21 13:10 Weight: 271 lb 2.697 oz Body Mass Index (BMI) 49.6 Charges/Coding Procedures Integumentary [id number]: [id number] Fawn subq tissue 20 sq cm/< Physical Exam Const alert and oriented x3 General Appearance: cooperative HEENT normocephalic Cardio regular rate Skin Wound Narrative: The superior wound on the Left medial ankle is completely healed. The more distal ulceration has a small open area and there is no further erythema noted at this time. There is still a small amount of swelling at the ankles only. There is no purulent DC. No warmth or other signs of infection currently. Still with small petechiae of both lower extremities distal to the knee secondary to increased venous hypertension. Debridement Note Debridement Note Wound debrided: Left lower extremity venous leg ulcer Laterality: Left Type of Debridement: Excisional debridement Anesthesia Used: 5% Lidocaine Gel Depth: Down to and including healthy tissue and in the subcutaneous layer Percentage of wound debrided: 100 Instrument Used: 3mm curette Tissue Removed: Slough and devitalized tissue Severity: Fat Layer Exposed Amount of bleeding with debridement: Mild Bleeding Controlled with: Pressure Patient tolerated procedure: Patient tolerated procedure well Post-Debridement Measurements and Additional Note: Post-Debridement Measurements/Treatment WC - Nurse 1 - General Ulcer Assessment Start: 01/02/21 13:10 Freq: Status: Active Protocol: PEYTON Activity Type Activity Date Activity User E-Sign Co-Sign Detail Recorded Client Recorded Date Recorded By Document 01/02/21 13:10 DL [id number] 01/02/21 13:20 DL 01/02/21 13:10 WC - Today's Visit Information Type of service 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 ) Arrival Mode Ambulatory Transfer Assistance None Patient Identification Verified (Name & Yes ) Patient Requires Transmission-Based No Precautions Height and Weight Body Mass Index (BMI) 49.6 BMI Classification Obese Vital Signs Temperature (97.8 F-99.1 F) 97.5 F L Temperature Source Temporal Pulse Rate (60-100) 123 H Pulse Location Monitor Respiratory Rate (12-18) 18 Respiratory rate source Observation Blood Pressure (90/60-120/80) 112/73 Blood Pressure Mean (mm Hg) 86 Source Monitor History Since Last Visit- (Skip if this is Patient's initial visit) Have you changed medications since your No last visit? Any new allergies or adverse reactions No Had a fall/change in ADL's that may No increase risk of falls Signs or symptoms of abuse and/or No neglect since last visit Have you been in the hospital since your No last visit? Has dressing in place as prescribed Yes Has compression in place as prescribed Yes Has offloadiing in place as prescribed N/A Experienced any changes in pain level or No management Pain Scale: 0-10 Numeric Is Patient Pain Free? Yes SHANTEL - Nurse 1 - General Ulcer Measurement Start: 01/02/21 13:10 Freq: Status: Active Protocol: Activity Type Activity Date Activity User E-Sign Co-Sign Detail Recorded Client Recorded Date Recorded By Document 01/02/21 13:10 DL [id number] 01/02/21 13:20 DL 01/02/21 13:10 Wound Center Nurse 1 #3- L INFERIOR MED ANKLE -Current Size (cm) - Length 2 -Current Size (cm) - Width 1.4 -Current Size (cm) - Depth 0.1 -Total Square Cm 2.8 -Photo Taken No -Exudate Amt Medium -Exudate Type Serosanguineous -Wound Margin Distinct, Outline Attached -Granulation Amt None Present (0 %) -Necrosis Amt Large (67-100%) -Necrotic Tissue Type Adherent Slough -Structure Exposed N/A -Texture (Sherly-wound Skin Appearance) Localized Edema ,Scarring -Moisture (Sherly-wound Skin Appearance) No Abnormality -Color (Sherly-wound Skin Appearance) Hemosiderin Staining,Rubor -Temperature (Sherly-wound Skin No Abnormality Appearance) (Pt Warm) -Tenderness on Palpation (Sherly-wound No Skin Appearance) -Ulcer Cleansing Wound Cleanser -Foul Odor after Cleansing No -Anesthetic Used 4% Lidocaine Solution,5% Lidocaine Gel #2- L MED SUPERIOR ANKLE -Current Size (cm) - Length 0.5 -Current Size (cm) - Width 0.3 -Current Size (cm) - Depth 0.1 -Total Square Cm 0.15 -Photo Taken No -Exudate Amt Small -Exudate Type Serosanguineous -Wound Margin Distinct, Outline Attached -Granulation Amt None Present (0 %) -Necrosis Amt Large (67-100%) -Necrotic Tissue Type Eschar -Structure Exposed N/A -Texture (Sherly-wound Skin Appearance) Localized Edema ,Scarring -Moisture (Sherly-wound Skin Appearance) No Abnormality -Color (Sherly-wound Skin Appearance) Hemosiderin Staining -Temperature (Sherly-wound Skin No Abnormality Appearance) (Pt Warm) -Tenderness on Palpation (Sherly-wound No Skin Appearance) -Ulcer Cleansing Wound Cleanser -Foul Odor after Cleansing No -Anesthetic Used 4% Lidocaine Solution,5% Lidocaine Gel Left Calf (cm) 32 Left Ankle (cm) 20.7 WC - Nurse 2 - General Ulcer CM Notes Start: 01/02/21 13:10 Freq: Status: Active Protocol: Activity Type Activity Date Activity User E-Sign Co-Sign Detail Recorded Client Recorded Date Recorded By Document 01/02/21 13:58 MW [id number] 01/02/21 14:04 MW Document 01/11/21 13:58 MW [id number] 01/11/21 14:01 MW 01/02/21 01/11/21 13:58 13:58 Wound Center Nurse 2 #3- L INFERIOR MED ANKLE -Time 13:58 13:58 -Correct Patient Yes Yes -Correct Side, Site, Position Yes Yes -Correct Procedure Yes Yes -Procedure Performed No Yes -Type of Procedure Debridement -Clinical Debridement Subcutaneous -Tissue Removed Subcutaneous -Post Debridement (cm) - Length 2.0 1.9 -Post Debridement (cm) - Width 1.4 1.2 -Post Debridement (cm) - Depth 0.1 0.1 -Total Square (Post) (cm) 2.80 2.28 -Area of Debridement (cm) - Length 1.9 -Area of Debridement (cm) - Width 1.2 -Total Square (Area) (cm) 2.28 -Tunneling No No -Undermining/Tunneling No No -Circular Undermining No No -Wound/Ulcer Outcome Not Healed Not Healed -Ulcer Cleansing Rinsed/ Irrigated with Saline -Foul Odor after Cleansing No No -Bioengineered Tissue No No -Bleeding Controlled with Pressure Pressure -Offloading No No -Treatment Response Procedure Procedure Tolerated Well Tolerated Well -Debridement - Subq, 1st 20sq cm Yes #2- L MED SUPERIOR ANKLE -Time 13:59 -Correct Patient Yes -Correct Side, Site, Position Yes -Correct Procedure Yes -Procedure Performed No -Post Debridement (cm) - Length 0 -Post Debridement (cm) - Width 0 -Post Debridement (cm) - Depth 0 -Total Square (Post) (cm) 0 -Tunneling No -Undermining/Tunneling No -Circular Undermining No -Wound/Ulcer Outcome Healed- Epithelialized Pain Scale: 0-10 Numeric Is Patient Pain Free? Yes WC - Nurse 3 - General Ulcer D/C NN Start: 01/02/21 13:10 Freq: Status: Active Protocol: Activity Type Activity Date Activity User E-Sign Co-Sign Detail Recorded Client Recorded Date Recorded By Document 01/02/21 14:16 JF [id number] 01/02/21 14:17 JF Document 01/11/21 14:13 AK [id number] 01/11/21 14:14 AK 01/02/21 01/11/21 14:16 14:13 Wound Care Nurse 3 #3- L INFERIOR MED ANKLE -Ulcer Cleansing Rinsed/ Irrigated with Saline -Foul Odor after Cleansing No -Negative Pressure Wound Therapy N/A -Primary Dressing Applied Fibracol Plus NonAdherent 4x4,NonAdherent Contact Layer, Contact Layer Promogran Tavia Matter -Primary Dressing Covered/Secured with Dry Gauze & Dry Gauze & Roll Gauze, Roll Gauze, Secured with Secured with Tape Tape -Fibracol Plus 4x4 1 -Promogran Tavia Matter 1 Left -Lotion applied to leg before No compression wrap -Compression Wrap Seven Wrap -Tubular Bandage Double Layer -Size of Tubigrip Used Size E -Size E ($) 2 Pain Scale: 0-10 Numeric Is Patient Pain Free? Yes WC - Visit Discharge Discharge Condition Stable Stable Ambulatory Status Ambulatory Ambulatory Transportation Private Auto Accompanied by son Medication Reconcilliation completed & Yes No provided to patient/care provider Clinical Summary of Care Provided Yes Yes Assessment/Plan Assessment/Plan (1) Complex regional pain syndrome I of lower limb: CODE(S): G90.529 - Complex regional pain syndrome I of unspecified lower limb (2) Venous ulcer of left leg: CODE(S): I83.029 - Varicose veins of left lower extremity with ulcer of unspecified site (3) Cellulitis: CODE(S): L03.90 - Cellulitis, unspecified (4) Chronic anticoagulation: CODE(S): Z79.01 - retirement (current) use of anticoagulants (5) Venous incompetence: CODE(S): I87.2 - Venous insufficiency (chronic) (peripheral) PLAN: 1. XRAY of the Left foot and ankle - pt refused and would like us to get the XRAY she had done at [facility] in october prior to being referred to the [facility], will request records 2. Augmentin 875 BID X 7 more days to treat the Enterococcus Faecalis since the cellulitis is better but, not completely resolved. Patient is tolerating almost at the completion of her entire course. 3. Shelbie will make an appt for her to follow up with Dr. Griggs for suspected regional pain syndrome, this is pending. 4. She was instructed to take the Gabapentin 3 times a day and is doing well. Her pain does seem to be improved on this. 6. Wound care instructions include daily application of Tavia cover with gauze and double layer Tubigrip's for compression.. I told her once again today that if this ulcer is going to stay healed she will need to stay off her feet for long periods of time and elevate more to help control the swelling. Controlling the edema is critical to keeping the wound closed since there is so much scarring and fibrosis that the skin is no longer elastic and when it swells it will break open from the venous HTN and weeping/breakdown. She has had very long standing venous insufficiency. This note was generated with [employer] dictation software. It may contain incorrect words, spelling, and punctuation that were not noted in checking the note before signing.
[2021-01-18 13:59] VITALS: BP 126/71; PULSE 87; TEMP 36.1; BMI 49.6
--- NOTE | 2021-01-18 21:37 | PN.PCM_ITS ---
History of Present Illness Date of Service: 01/18/21 Chief Complaint: Venous leg ulceration, left lower extremity History of Wound: This is a 76-year-old Roman Catholic female who presents with a 6 week history of ulceration in the left medial supramalleolar area. The patient admits to having a prior episode of ulceration in this area. She claims to sleep in a flat position at night. However, during the day she spends a great deal of time and in idle sitting position. She denies any history of thrombo phlebitis. She was evaluated in the wound center 1 week ago, and treated with an Unna boot. She presents at this time, where it is noted that the ulceration in the left lower extremity is now completely healed. 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 Patient wears compre ssion stockings which she obtains [id number]. 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 Progress of Wound: 01/11/2021?transfer care to myself. Patient referred to pain management for her chronic pain. She did respond well to the gabapentin and is taking this appropriately and has had improvement. With regard to her wound, there is no new concerns and the patient is tolerating her antibiotics well without any side effects. 01/18/2021?patient did follow-up with pain management for her chronic pain and plans to have injections next week. She is still doing well on the gabapentin and patient completed her antibiotics and the wound has gotten smaller this week. Objective Data Objective Data Vital Signs: Vital Signs Temp Pulse Resp BP 96.9 F L 87 18 126/71 H 01/18/21 13:59 01/18/21 13:59 01/02/21 13:10 01/18/21 13:59 Weight: 271 lb 2.697 oz Body Mass Index (BMI) 49.6 Charges/Coding Procedures Integumentary 111xxx-113xx: 96530 Fawn subq tissue 20 sq cm/< Physical Exam Const alert and oriented x3 General Appearance: cooperative HEENT normocephalic Cardio regular rate Skin Wound Narrative: The superior wound on the Left medial ankle is completely healed. The more distal ulceration has a small open area and there is no further erythema noted at this time. There is still a small amount of swelling at the ankles only. There is no purulent DC. No warmth or other signs of infection currently. Still with small petechiae of both lower extremities distal to the knee secondary to increased venous hypertension. Debridement Note Debridement Note Wound debrided: Left venous leg ulcer Laterality: Left Type of Debridement: Excisional debridement Anesthesia Used: 5% Lidocaine Gel Depth: in the subcutaneous layer Percentage of wound debrided: 100 Instrument Used: 3mm curette Tissue Removed: Slough devitalized tissue Severity: Fat Layer Exposed Amount of bleeding with debridement: Mild Bleeding Controlled with: Pressure Patient tolerated procedure: Patient tolerated procedure well Post-Debridement Measurements and Additional Note: Post-Debridement Measurements/Treatment WC - Nurse 1 - General Ulcer Assessment Start: 01/02/21 13:10 Freq: Status: Active Protocol: PEYTON Activity Type Activity Date Activity User E-Sign Co-Sign Detail Recorded Client Recorded Date Recorded By Document 01/02/21 13:10 DL [id number] 01/02/21 13:20 DL Document 01/18/21 13:59 AK [id number] 01/18/21 14:02 AK 01/02/21 01/18/21 13:10 13:59 WC - Today's Visit Information Type of service Follow-up Visit Follow-up Visit (Physician/NETWORK OPERATIONS PROJECT MANAGER (Physician/NETWORK OPERATIONS PROJECT MANAGER ) ) Arrival Mode Ambulatory Ambulatory Transfer Assistance None Patient Identification Verified (Name & Yes Yes ) Patient Requires Transmission-Based No No Precautions Safety Precautions NA Height and Weight Body Mass Index (BMI) 49.6 49.6 BMI Classification Obese Obese Vital Signs Temperature (97.8 F-99.1 F) 97.5 F L 96.9 F L Temperature Source Temporal Temporal Pulse Rate (60-100) 123 H 87 Pulse Location Monitor Monitor Respiratory Rate (12-18) 18 Respiratory rate source Observation Blood Pressure (90/60-120/80) 112/73 126/71 H Blood Pressure Mean (mm Hg) 86 89 Source Monitor Monitor History Since Last Visit- (Skip if this is Patient's initial visit) Have you changed medications since your No No last visit? Any new allergies or adverse reactions No No Had a fall/change in ADL's that may No No increase risk of falls Signs or symptoms of abuse and/or No No neglect since last visit Have you been in the hospital since your No No last visit? Has dressing in place as prescribed Yes Yes Has compression in place as prescribed Yes Yes Has offloadiing in place as prescribed N/A N/A Experienced any changes in pain level or No No management Left Footwear Regular Shoe Right Footwear Regular Shoe Pain Scale: 0-10 Numeric Is Patient Pain Free? Yes WC - Nurse 1 - General Ulcer Measurement Start: 01/02/21 13:10 Freq: Status: Active Protocol: Activity Type Activity Date Activity User E-Sign Co-Sign Detail Recorded Client Recorded Date Recorded By Document 01/02/21 13:10 DL [id number] 01/02/21 13:20 DL Document 01/18/21 13:59 AK [id number] 01/18/21 14:02 AK 01/02/21 01/18/21 13:10 13:59 Wound Center Nurse 1 #3- L INFERIOR MED ANKLE -Combined with other wound No -Current Size (cm) - Length 2 0.1 -Current Size (cm) - Width 1.4 0.1 -Current Size (cm) - Depth 0.1 0.1 -Total Square Cm 2.8 0.01 -Photo Taken No No -Epithelialization None Present -Tunneling No -Undermining/Tunneling No -Circular Undermining No -Change in Wound Grade/Stage No -Exudate Amt Medium None Present -Exudate Type Serosanguineous Serosanguineous -Wound Margin Distinct, Distinct, Outline Outline Attached Attached -Granulation Amt None Present (0 None Present (0 %) %) -Granulation Quality Hyper- granulation,N/A -Slough/Fibrin No -Necrosis Amt Large (67-100%) None Present (0 %) -Necrotic Tissue Type Adherent Slough -Structure Exposed N/A N/A -Texture (Sherly-wound Skin Appearance) Localized Edema No Abnormality, ,Scarring Assessed -Moisture (Sherly-wound Skin Appearance) No Abnormality No Abnormality, Assessed -Color (Sherly-wound Skin Appearance) Hemosiderin No Abnormality, Staining,Rubor Assessed -Temperature (Sherly-wound Skin No Abnormality No Abnormality Appearance) (Pt Warm) (Pt Warm) -Tenderness on Palpation (Sherly-wound No No Skin Appearance) -Ulcer Cleansing Wound Cleanser Rinsed/ Irrigated with Saline -Foul Odor after Cleansing No No -Anesthetic Used 4% Lidocaine 5% Lidocaine Solution,5% Gel Lidocaine Gel #2- L MED SUPERIOR ANKLE -Current Size (cm) - Length 0.5 -Current Size (cm) - Width 0.3 -Current Size (cm) - Depth 0.1 -Total Square Cm 0.15 -Photo Taken No -Exudate Amt Small -Exudate Type Serosanguineous -Wound Margin Distinct, Outline Attached -Granulation Amt None Present (0 %) -Necrosis Amt Large (67-100%) -Necrotic Tissue Type Eschar -Structure Exposed N/A -Texture (Sherly-wound Skin Appearance) Localized Edema ,Scarring -Moisture (Sherly-wound Skin Appearance) No Abnormality -Color (Sherly-wound Skin Appearance) Hemosiderin Staining -Temperature (Sherly-wound Skin No Abnormality Appearance) (Pt Warm) -Tenderness on Palpation (Sherly-wound No Skin Appearance) -Ulcer Cleansing Wound Cleanser -Foul Odor after Cleansing No -Anesthetic Used 4% Lidocaine Solution,5% Lidocaine Gel Lower Limb Edema Present No Left Calf (cm) 32 Left Ankle (cm) 20.7 WC - Nurse 2 - General Ulcer CM Notes Start: 01/02/21 13:10 Freq: Status: Active Protocol: Activity Type Activity Date Activity User E-Sign Co-Sign Detail Recorded Client Recorded Date Recorded By Document 01/02/21 13:58 MW [id number] 01/02/21 14:04 MW Document 01/11/21 13:58 MW [id number] 01/11/21 14:01 MW Document 01/18/21 14:34 MW [id number] 01/18/21 14:35 MW 01/02/21 01/11/21 01/18/21 13:58 13:58 14:34 Wound Center Nurse 2 #3- L INFERIOR MED ANKLE -Time 13:58 13:58 14:34 -Correct Patient Yes Yes Yes -Correct Side, Site, Position Yes Yes Yes -Correct Procedure Yes Yes Yes -Procedure Performed No Yes Yes -Type of Procedure Debridement Debridement -Clinical Debridement Subcutaneous Subcutaneous -Tissue Removed Subcutaneous Subcutaneous -Post Debridement (cm) - Length 2.0 1.9 2.1 -Post Debridement (cm) - Width 1.4 1.2 0.6 -Post Debridement (cm) - Depth 0.1 0.1 0.1 -Total Square (Post) (cm) 2.80 2.28 1.26 -Area of Debridement (cm) - Length 1.9 2.1 -Area of Debridement (cm) - Width 1.2 0.6 -Total Square (Area) (cm) 2.28 1.26 -Tunneling No No No -Undermining/Tunneling No No No -Circular Undermining No No No -Wound/Ulcer Outcome Not Healed Not Healed Not Healed -Ulcer Cleansing Rinsed/ Rinsed/ Irrigated with Irrigated with Saline Saline -Foul Odor after Cleansing No No No -Bioengineered Tissue No No No -Bleeding Controlled with Pressure Pressure Pressure -Offloading No No No -Treatment Response Procedure Procedure Procedure Tolerated Well Tolerated Well Tolerated Well -Debridement - Subq, 1st 20sq cm Yes Yes #2- L MED SUPERIOR ANKLE -Time 13:59 -Correct Patient Yes -Correct Side, Site, Position Yes -Correct Procedure Yes -Procedure Performed No -Post Debridement (cm) - Length 0 -Post Debridement (cm) - Width 0 -Post Debridement (cm) - Depth 0 -Total Square (Post) (cm) 0 -Tunneling No -Undermining/Tunneling No -Circular Undermining No -Wound/Ulcer Outcome Healed- Epithelialized Pain Scale: 0-10 Numeric Is Patient Pain Free? Yes Yes WC - Nurse 3 - General Ulcer D/C NN Start: 01/02/21 13:10 Freq: Status: Active Protocol: Activity Type Activity Date Activity User E-Sign Co-Sign Detail Recorded Client Recorded Date Recorded By Document 01/02/21 14:16 [id number] 01/02/21 14:17 Document 01/11/21 14:13 AK [id number] 01/11/21 14:14 AK 01/02/21 01/11/21 14:16 14:13 Wound Care Nurse 3 #3- L INFERIOR MED ANKLE -Ulcer Cleansing Rinsed/ Irrigated with Saline -Foul Odor after Cleansing No -Negative Pressure Wound Therapy N/A -Primary Dressing Applied Fibracol Plus NonAdherent 4x4,NonAdherent Contact Layer, Contact Layer Promogran Tavia Matter -Primary Dressing Covered/Secured with Dry Gauze & Dry Gauze & Roll Gauze, Roll Gauze, Secured with Secured with Tape Tape -Fibracol Plus 4x4 1 -Promogran Tavia Matter 1 Left -Lotion applied to leg before No compression wrap -Compression Wrap Seven Wrap -Tubular Bandage Double Layer -Size of Tubigrip Used Size E -Size E ($) 2 Pain Scale: 0-10 Numeric Is Patient Pain Free? Yes WC - Visit Discharge Discharge Condition Stable Stable Ambulatory Status Ambulatory Ambulatory Transportation Private Auto Accompanied by son Medication Reconcilliation completed & Yes No provided to patient/care provider Clinical Summary of Care Provided Yes Yes Assessment/Plan Assessment/Plan (1) Complex regional pain syndrome I of lower limb: CODE(S): G90.529 - Complex regional pain syndrome I of unspecified lower limb (2) Venous ulcer of left leg: CODE(S): I83.029 - Varicose veins of left lower extremity with ulcer of unspecified site (3) Cellulitis: CODE(S): L03.90 - Cellulitis, unspecified (4) Chronic anticoagulation: CODE(S): Z79.01 - intermediate (current) use of anticoagulants (5) Venous incompetence: CODE(S): I87.2 - Venous insufficiency (chronic) (peripheral) PLAN: 1. XRAY of the Left foot and ankle - pt refused and would like us to get the XRAY she had done at [facility] in october prior to being referred to the [facility], will request records 2. Patient tolerated the entire course of Augmentin to treat the Enterococcus Faecalis, no clinical signs of cellulitis at this time.. 3. Patient to follow up with Dr. Griggs for suspected regional pain syndrome, this is pending. 4. She was instructed to take the Gabapentin 3 times a day and is doing well. Her pain does seem to be improved on this. 5. Wound care instructions include daily application of Tavia cover with gauze and double layer Tubigrip's for compression.. I told her once again today that if this ulcer is going to stay healed she will need to stay off her feet for long periods of time and elevate more to help control the swelling. Controlling the edema is critical to keeping the wound closed since there is so much scarring and fibrosis that the skin is no longer elastic and when it swells it will break open from the venous HTN and weeping/breakdown. She has had very long standing venous insufficiency. This note was generated with [email or web address] software. It may contain incorrect words, spelling, and punctuation that were not noted in checking the note before signing.
== END 2021-01-28 23:59 ==
LOC: WC 14:00
PROVIDERS: PCP Family Medicine; Visit Provider Nurse Practitioner Family
DX: I83.023 Varicose veins of left lower extremity with ulcer of ankle (principal); L97.321 Non-pressure chronic ulcer of left ankle limited to breakdown of skin; L03.90 Cellulitis, unspecified; G90.529 Complex regional pain syndrome I of unspecified lower limb
CPT/HCPCS: 11042; 99213; G0463

== ENCOUNTER 2021-02-01 13:45 | Outpatient (RCR) | payer OTHER, SELFPAY ==
[2021-01-29 00:27] VITALS: BP 126/71; PULSE 87; RESP 18; TEMP 36.1; BMI 49.6
[2021-02-01 13:47] VITALS: BP 146/60; PULSE 78; TEMP 36.1; BMI 49.6
--- NOTE | 2021-02-01 15:30 | PCM.WC.PN ---
History of Present Illness Date of Service: 02/01/21 Chief Complaint: Venous leg ulceration, left lower extremity History of Wound: This is a 76-year-old [employer] female who presents with a 6 week history of ulceration in the left medial supramalleolar area. The patient admits to having a prior episode of ulceration in this area. She claims to sleep in a flat position at night. However, during the day she spends a great deal of time and in idle sitting position. She denies any history of thrombophlebitis. She was evaluated in the wound center 1 week ago, and treated with an Unna boot. She presents at this time, where it is noted that the ulceration in the left lower extremity is now completely healed. 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 Patient wears compression stockings which she obtains [id number]. 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 Progress of Wound: 02/01/2021?no new concerns, site continues to improve. Patient doing well with gabapentin and following up with pain management. Objective Data Objective Data Vital Signs: Vital Signs Temp Pulse Resp BP 97.0 F L 78 18 146/60 H 02/01/21 13:47 02/01/21 13:47 01/29/21 00:27 02/01/21 13:47 Weight: 271 lb 2.697 oz Body Mass Index (BMI) 49.6 Charges/Coding Procedures Integumentary 111xxx-113xx: 29203 Fawn subq tissue 20 sq cm/< Physical Exam Const alert and oriented x3 General Appearance: cooperative HEENT normocephalic Cardio regular rate Skin Wound Narrative: The superior wound on the Left medial ankle is completely healed. The more distal ulceration has a small open area and there is no further erythema noted at this time. There is still a small amount of swelling at the ankles only. There is no purulent DC. No warmth or other signs of infection currently. Still with small petechiae of both lower extremities distal to the knee secondary to increased venous hypertension. Debridement Note Debridement Note Wound debrided: Left venous leg ulcer Laterality: Left Type of Debridement: Excisional debridement Anesthesia Used: 5% Lidocaine Gel Depth: in the subcutaneous layer Percentage of wound debrided: 100 Instrument Used: 3mm curette Tissue Removed: Slough and devitalized tissue Severity: Fat Layer Exposed Amount of bleeding with debridement: Mild Bleeding Controlled with: Pressure Patient tolerated procedure: Patient tolerated procedure well Post-Debridement Measurements and Additional Note: Post-Debridement Measurements/Treatment - Nurse 1 - General Ulcer Assessment Start: 02/01/21 13:46 Freq: Status: Active Protocol: PEYTON Activity Type Activity Date Activity User E-Sign Co-Sign Detail Recorded Client Recorded Date Recorded By Document 02/01/21 13:47 RAVINDRA [id number] 02/01/21 13:48 RAVINDRA 02/01/21 13:47 WC - Today's Visit Information Type of service Follow-up Visit (Physician/SUPERVISOR CHLORINE LIQUEFACTION ) Arrival Mode Ambulatory Patient Identification Verified (Name & Yes ) Height and Weight Body Mass Index (BMI) 49.6 BMI Classification Obese Vital Signs Temperature (97.8 F-99.1 F) 97.0 F L Temperature Source Temporal Pulse Rate (60-100) 78 Pulse Location Monitor Blood Pressure (90/60-120/80) 146/60 H Blood Pressure Mean (mm Hg) 88 Source Monitor Position Sitting Blood Pressure Location Right Arm History Since Last Visit- (Skip if this is Patient's initial visit) Have you changed medications since your No last visit? Any new allergies or adverse reactions No Had a fall/change in ADL's that may No increase risk of falls Signs or symptoms of abuse and/or No neglect since last visit Have you been in the hospital since your No last visit? Has dressing in place as prescribed Yes Has compression in place as prescribed Yes Has offloadiing in place as prescribed N/A Experienced any changes in pain level or No management Left Footwear Regular Shoe Right Footwear Regular Shoe Pain Scale: 0-10 Numeric Is Patient Pain Free? Yes - Nurse 1 - General Ulcer Measurement Start: 02/01/21 13:46 Freq: Status: Active Protocol: Activity Type Activity Date Activity User E-Sign Co-Sign Detail Recorded Client Recorded Date Recorded By Document 02/01/21 13:47 RAVINDRA [id number] 02/01/21 13:48 RAVINDRA 02/01/21 13:47 Wound Center Nurse 1 #3- L INFERIOR MED ANKLE -Current Size (cm) - Length 1.8 -Current Size (cm) - Width 0.5 -Current Size (cm) - Depth 0.1 -Total Square Cm 0.90 -Exudate Amt Small -Exudate Type Serosanguineous -Wound Margin Distinct, Outline Attached -Granulation Amt Small (1-33%) -Granulation Quality Colo -Necrosis Amt Small (1-33%) -Necrotic Tissue Type Adherent Slough -Texture (Sherly-wound Skin Appearance) Assessed, Scarring -Moisture (Sherly-wound Skin Appearance) No Abnormality, Assessed -Color (Sherly-wound Skin Appearance) No Abnormality, Assessed -Temperature (Sherly-wound Skin No Abnormality Appearance) (Pt Warm) -Tenderness on Palpation (Sherly-wound No Skin Appearance) -Ulcer Cleansing Rinsed/ Irrigated with Saline -Foul Odor after Cleansing No -Anesthetic Used 4% Lidocaine Solution,5% Lidocaine Gel SHANTEL - Nurse 2 - General Ulcer CM Notes Start: 02/01/21 13:46 Freq: Status: Active Protocol: Activity Type Activity Date Activity User E-Sign Co-Sign Detail Recorded Client Recorded Date Recorded By Document 02/01/21 14:06 FREDO [id number] 02/01/21 14:07 FREDO 02/01/21 14:06 Wound Center Nurse 2 -Time 14:06 -Correct Patient Yes -Correct Side, Site, Position Yes -Correct Procedure Yes -Procedure Performed Yes -Type of Procedure Debridement -Clinical Debridement Subcutaneous -Tissue Removed Dermis -Post Debridement (cm) - Length 0.6 -Post Debridement (cm) - Width 0.2 -Post Debridement (cm) - Depth 0.1 -Total Square (Post) (cm) 0.12 -Area of Debridement (cm) - Length 0.6 -Area of Debridement (cm) - Width 0.2 -Total Square (Area) (cm) 0.12 -Tunneling No -Undermining/Tunneling No -Circular Undermining No -Wound/Ulcer Outcome Not Healed -Ulcer Cleansing Rinsed/ Irrigated with Saline -Foul Odor after Cleansing No -Bioengineered Tissue No -Bleeding Controlled with Pressure -Offloading No -Treatment Response Procedure Tolerated Well -Debridement - Subq, 1st 20sq cm Yes Pain Scale: 0-10 Numeric Is Patient Pain Free? Yes SHANTEL - Nurse 3 - General Ulcer D/C NN Start: 02/01/21 13:46 Freq: Status: Active Protocol: Activity Type Activity Date Activity User E-Sign Co-Sign Detail Recorded Client Recorded Date Recorded By Document 02/01/21 14:22 ML [id number] 02/01/21 14:23 ML 02/01/21 14:22 Wound Care Nurse 3 #3- L INFERIOR MED ANKLE -Ulcer Cleansing Rinsed/ Irrigated with Saline -Primary Dressing Applied C Hydrogel ($) -Other Dressing adaptic -Primary Dressing Covered/Secured with Dry Gauze & Roll Gauze, Secured with Tape Left -Tubular Bandage Double Layer -Size of Tubigrip Used Size C -Size C ($) 2 Assessment/Plan Assessment/Plan (1) Complex regional pain syndrome I of lower limb: CODE(S): G90.529 - Complex regional pain syndrome I of unspecified lower limb (2) Venous ulcer of left leg: CODE(S): I83.029 - Varicose veins of left lower extremity with ulcer of unspecified site (3) Cellulitis: CODE(S): L03.90 - Cellulitis, unspecified (4) Chronic anticoagulation: CODE(S): Z79.01 - 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 XRAY of the Left foot and ankle - pt refused and would like us to get the XRAY she had done at [facility] in october prior to being referred to the [facility], will request records 2. Patient tolerated the entire course of Augmentin to treat the Enterococcus Faecalis, no clinical signs of cellulitis at this time.. 3. Patient to follow up with Dr. Griggs for suspected regional pain syndrome, this is pending. 4. She was instructed to take the Gabapentin 3 times a day and is doing well. Her pain does seem to be improved on this. 5. Wound care instructions include daily application of Tavia cover with gauze and double layer Tubigrip's for compression.. I told her once again today that if this ulcer is going to stay healed she will need to stay off her feet for long periods of time and elevate more to help control the swelling. Controlling the edema is critical to keeping the wound closed since there is so much scarring and fibrosis that the skin is no longer elastic and when it swells it will break open from the venous HTN and weeping/breakdown. She has had very long standing venous insufficiency. This note was generated with [employer] software. It may contain incorrect words, spelling, and punctuation that were not noted in checking the note before signing.
== END 2021-02-27 23:59 ==
LOC: WC 13:45
PROVIDERS: PCP Family Medicine; Visit Provider Nurse Practitioner Family
DX: I83.023 Varicose veins of left lower extremity with ulcer of ankle (principal); G90.529 Complex regional pain syndrome I of unspecified lower limb; L03.90 Cellulitis, unspecified; L97.322 Non-pressure chronic ulcer of left ankle with fat layer exposed
CPT/HCPCS: 11042

== ENCOUNTER 2021-03-08 13:00 | Outpatient (RCR) | payer OTHER, SELFPAY ==
[2021-02-28 00:32] VITALS: BP 146/60; PULSE 78; RESP 18; TEMP 36.1; BMI 49.6
[2021-03-08 13:00] VITALS: BP 123/53; PULSE 88; RESP 20; TEMP 36.4; BMI 49.6
--- NOTE | 2021-03-08 21:11 | PN.PCM_ITS ---
History of Present Illness Date of Service: 03/08/21 Chief Complaint: Venous leg ulceration, left lower extremity History of Wound: This is a 76-year-old [employer] female who presents with a 6 week history of ulceration in the left medial supramalleolar area. The patient admits to having a prior episode of ulceration in this area. She claims to sleep in a flat position at night. However, during the day she spends a great deal of time and in idle sitting position. She denies any history of thrombo phlebitis. She was evaluated in the wound center 1 week ago, and treated with an Unna boot. She presents at this time, where it is noted that the ulceration in the left lower extremity is now completely healed. 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 Patient wears compre ssion stockings which she obtains [id number]. 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 Progress of Wound: Wound is now healed without any signs of infection at this time, patient states that her chronic pain is improved as well. She has been more compliant with her compression also. No new concerns. Objective Data Objective Data Vital Signs: Vital Signs Temp Pulse Resp BP 97.5 F L 88 20 H 123/53 H 03/08/21 13:00 03/08/21 13:00 03/08/21 13:00 03/08/21 13:00 Weight: 271 lb 2.697 oz Body Mass Index (BMI) 49.6 Charges/Coding Visit Charges Office Visits / Consults: 93442 OV L3 Est Physical Exam Const alert and oriented x3 General Appearance: cooperative HEENT normocephalic Cardio regular rate Skin Wound Narrative: The superior wound on the Left medial ankle is completely healed. The more distal ulceration is now healed as well without any signs of infection. No warmth or other signs of infection currently. Still with small petechiae of both lower extremities distal to the knee secondary to increased venous hypertension. Debridement Note Debridement Note No debridement was completed: No debridement was completed today Assessment/Plan Assessment/Plan (1) Complex regional pain syndrome I of lower limb: CODE(S): G90.529 - Complex regional pain syndrome I of unspecified lower limb (2) Venous ulcer of left leg: CODE(S): I83.029 - Varicose veins of left lower extremity with ulcer of unspecified site (3) Cellulitis: CODE(S): L03.90 - Cellulitis, unspecified (4) Chronic anticoagulation: CODE(S): Z79.01 - manager terminal (current) use of anticoagulants (5) Venous incompetence: CODE(S): I87.2 - Venous insufficiency (chronic) (peripheral) PLAN: Patient's wounds are healed and she will be discharged from the wound healing center today in follow-up needed in the future. Patient to continue follow up with Dr. Griggs for suspected regional pain syndrome. Wound care instructions include covering with Adaptic for protection for the next week and double layer Tubigrip's for compression.. I told her once again today that if this ulcer is going to stay healed she will need to stay off her feet for long periods of time and elevate more to help control the swelling. Controlling the edema is critical to keeping the wound closed since there is so much scarring and fibrosis that the skin is no longer elastic and when it swells it will break open from the venous HTN and weeping/breakdown. This note was generated with [employer] dictation software. It may contain incorrect words, spelling, and punctuation that were not noted in checking the note before signing. I have spent 25 minutes today reviewing labs, records, and history. Time includes coordinating care, interpretation of tests, and counseling the patient/family. This also includes time I spent with the patient for exam, treatment plan, and education as well as documenting clinical information in the electronic health record.
== END 2021-03-08 15:37 | disposition home or self-care (01) ==
LOC: WC 13:00
PROVIDERS: PCP Family Medicine; Visit Provider Nurse Practitioner Family
DX: Z09 Encounter for follow-up examination after completed treatment for conditions other than malignant neoplasm (principal); I87.2 Venous insufficiency (chronic) (peripheral); G90.50 Complex regional pain syndrome I, unspecified; Z79.01 Long term (current) use of anticoagulants
CPT/HCPCS: 99213; G0463

== ENCOUNTER 2021-07-12 09:39 | Outpatient (CLI) | payer OTHER, SELFPAY ==
[2021-07-12 10:55] LABS: Anion Gap 2 (5-15); BUN 33 mg/dL (7-18); BUN/Creat Ratio 39.1 RATIO (10-20); Calcium,Total 9.2 mg/dL (8.5-10.1); Chloride 102 mmol/L (98-107); Creatinine, Serum 0.84 mg/dL (0.55-1.02); EST Glomerular Filtration Rate 69 mL/min (>60); Est Glom Filt Rate - Afr Amer 84 mL/min (>60); Glucose 94 mg/dL (74-106); Potassium 3.5 mmol/L (3.5-5.1); Sodium Level 139 mmol/L (136-145)
== END 2021-07-12 23:59 | disposition home or self-care (01) ==
PROVIDERS: PCP Family Medicine; Referring Provider Physician Assistant Medical; Visit Provider Physician Assistant Medical
DX: I48.0 Paroxysmal atrial fibrillation (principal)
CPT/HCPCS: 36415; 80048

== ENCOUNTER → 2024-08-17 | Outpatient (CLI) | payer OTHER, SELFPAY ==
[2024-08-17 09:41] LABS: Absolute Lymphocyte Count 1.25 X10^3/uL (0.83-4.51); Absolute Neutrophil Count 4.9 X10^3/uL (2.0-7.7); Basophil# 0.04 X10^3/uL; Basophil% 0.6 % (0-1); Eosinophil# 0.32 X10^3/uL; Eosinophils% 4.5 % (0-5); Hematocrit 34.5 % (37-47); Hemoglobin 11.5 g/dL (12.0-15.0); Lymphocyte # 1.25 X10^3/ul (0.83-4.51); Lymphocyte % 17.7 % (19-41); Mean Corp Hgb Conc 33.3 g/dL (32-36); Mean Corpuscular Hgb 31.4 pg (27.0-32.0); Mean Corpuscular Volume 94.3 fL (81-99); Mean Platelet Vol. 9.6 fl (6.2-12.0); Monocyte# 0.56 X10^3/uL; Monocyte% 7.9 % (0-10); NRBC Flagged by Analyzer 0 % (0-5); Neutrophil # 4.86 X10^3/uL (2.7-7.7); Neutrophil % 68.9 % (47-70); Platelet Count 174 K/mm3 (150-450); RBC Distribution Width CV 14.1 % (11.6-14.6); RBC Distribution Width SD 48.4 fl (35.1-43.9); Red Blood Count 3.66 M/mm3 (4.2-5.4); White Blood Count 7.1 K/mm3 (4.4-11.0)
[2024-08-17 10:11] LABS: ALB/GLOB Ratio 1.1 RATIO (0.9-2.4); AST(SGOT) 28 U/L (<=31); Alanine Aminotransfer ALT/SGPT 7 U/L (<=34); Albumin, Serum 3.6 g/dL (3.4-4.8); Alkaline Phosphatase 71 U/L (35-104); Anion Gap 9 (5-15); BUN 34 mg/dL (4-19); BUN/Creat Ratio 35.5 RATIO (10-20); Calcium,Total 9.3 mg/dL (7.6-11.0); Carbon Dioxide 27.5 mmol/L (21.0-32.0); Chloride 104 mmol/L (98-108); Creatinine, Serum 0.95 mg/dL (0.70-1.20); EST Glomerular Filtration Rate 60 (>60); Globulin 3.2 g/dL (2.2-4.2); Glucose 93 mg/dL (70-99); Protein, Total 6.8 g/dL (5.9-8.4); Sodium Level 141 mmol/L (133-145); Total Bilirubin 0.31 mg/dL (0.00-1.30)
[2024-08-20 13:08] LABS: Vitamin D 1,25-Dihydroxy 29.3 pg/mL (24.8-81.5)
== END | disposition home or self-care (01) ==
PROVIDERS: PCP Nurse Practitioner Family; Referring Provider Physician Assistant Medical; Visit Provider Physician Assistant Medical
DX: R53.83 Other fatigue (principal)
CPT/HCPCS: 36415; 80053; 82652; 84443; 85025

== ENCOUNTER 2024-09-10 10:29 | Inpatient (IN) | payer OTHER, SELFPAY ==
[2024-09-10] VITALS (11 sets, daily range): BP systolic 98–111; BP diastolic 51–72; PULSE 83–89; RESP 16–18; TEMP 36.2–36.6; O2SAT 95–100; BMI 26.1; BMI 26.8
--- NOTE | 2024-09-10 10:49 | VDLE_ITS ---
Reason For Study Reason For Study: Left leg pain RIGHT LEFT CFV is compressible, spontaneous, phasic, competent GSV is normal. and demonstrates normal augmentation. CFV is compressible, spontaneous, phasic, competent, Procedure and demonstrates normal augmentation. This is a venous duplex using B-mode, color flow and FV is compressible, spontaneous, phasic, competent spectral Doppler. and demonstrates normal augmentation. Exam performed in department. POP V is compressible, spontaneous, phasic, competent A preliminary report was called and/or faxed to ED. and demonstrates normal augmentation. T/P Trunk is compressible. PTV is compressible. LT PerV is compressible. VL/Venous Duplex US, Unilateral Interpretation Summary Deep veins of the left lower extremity are patent and compressible segmentally. There is no evidence of left lower extremity deep vein thrombosis. Valvular competence appears intact within the p roximal deep venous system on the left . The left great saphenous vein appears patent and compressible segmentally. The right common femoral vein is patent and compressible . Ordering Physician: Ramsey Gamez Referring Physician: Marguerite Kumar Performed By: Janette Shook RVT
--- NOTE | 2024-09-10 10:50 | ED.VIS.LOWEX ---
HPI History of Present Illness Chief Complaint: Wound Informant: patient and family Narrative Narrative: 83-year-old female presenting to the emergency room for evaluation of wound on the right lower extremity. Patient states that she chronically has some mild lower extremity edema and wears compression stockings. About 8 weeks ago she bumped the left lower leg on a bed. She noticed a wound after communion and is progressively worsened. Family states they have been seeing Dr. Markham for management has been using Silvadene cream and dressings. Patient states it started weeping significantly today is more swollen and more red and seems to be going up the leg. No reported fevers but they do note chills. She is on Coumadin for prior atrial fibrillation history and noted that her INR was subtherapeutic on Friday at 1.5. She is not currently on an antibiotic but does utilize Silvadene cream. Patient states that she has begun taking Lasix and she increased her potassium dosing because of that. She has also been taking ibuprofen 600 mg every 6 hours. [facility] Medical History Fatigue Grade I diastolic dysfunction Venous incompetence Secondary pulmonary arterial hypertension Non-rheumatic tricuspid valve insufficiency Paroxysmal atrial fibrillation Paroxysmal supraventricular tachycardia Essential hypertension Vitamin D deficiency Family history of colon cancer History of colonic polyps Scoliosis Diverticulosis Hiatal hernia Lipodermatosclerosis Hyperpigmentation of skin Venous hypertension, chronic, with ulcer Chronic venous insufficiency Venous ulcer of left leg Leg edema, left Edema of left lower leg due to peripheral venous insufficiency 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 Home Medications ?Medication ?Instructions ?Recorded ?Last Taken ?Type coenzyme Q10 200 mg/gram oral 200 mg PO DAILY 10/13/20 09/10/24 History powder (H2Q CoQ10) metoprolol succinate 25 mg 25 mg PO DAILY 10/13/20 09/10/24 History tablet,extended release 24 hr raloxifene 60 mg tablet (Evista) 60 mg PO DAILY 10/13/20 09/10/24 History cholecalciferol (vitamin D3) 25 2,000 unit PO DAILY 01/18/21 09/10/24 History mcg (1,000 unit) tablet vitamin E mixed 400 unit tablet 400 unit PO DAILY 01/18/21 09/10/24 History gabapentin 100 mg capsule 100 mg PO QHS 07/12/21 09/09/24 History potassium chloride 10 mEq 10 meq PO BID 07/12/21 09/10/24 History tablet,extended release mv-mn-folic 200 mcg-vit K 15 1 cap PO DAILY 08/06/22 09/10/24 History mcg-lutein 5 mg-zeaxanthin 1 mg capsule (PreserVision AREDS 2 Plus Multivit) [id number] 333 mg-133 0.5 tab PO BID 09/10/24 09/10/24 History mg-5 mg tablet furosemide 20 mg tablet (Lasix) 20 mg PO DAILY 09/10/24 09/10/24 History hydrochlorothiazide 12.5 mg tablet 12.5 mg PO DAILY 09/10/24 09/10/24 History warfarin 1 mg tablet (Jantoven) 1 mg PO MOFR 09/10/24 09/10/24 History warfarin 2 mg tablet (Jantoven) 2 mg PO SUTUWETHSA 09/10/24 09/09/24 History Allergy/AdvReac Type Severity Reaction Status Date / Time No Known Allergies Allergy Verified 09/10/24 10:30 Family History Mother Heart disease Father Colon cancer Brother Asthma Alzheimers disease Surgical History History of loop electrosurgical excision procedure (LEEP) of cervix H/O tubal ligation History of cholecystectomy Social History Smoking Status: Never smoker alcohol intake: never substance use type: does not use caffeine: Yes Type: carbonated beverages and coffee ROS ROS ED Constitutional Constitutional ED: Reports chills; Denies fever(s), sweats or weight loss Eyes Eyes: Denies change in vision or diplopia ENT ENT ED: Denies ear pain, rhinorrhea or sore throat Cardiovascular Cardiovascular: Denies chest pain, orthopnea, palpitations or racing heartbeat Respiratory/Chest Respiratory/Chest: Denies cough, dyspnea or orthopnea Gastrointestinal Gastrointestinal: Denies abdominal pain, diarrhea, nausea or vomiting Genitourinary Genitourinary ED: Denies dysuria, hematuria or urinary frequency Musculoskeletal Musculoskeletal: Denies arthralgias or myalgias Integumentary Reports rash and other Details: See history of present illness ; Denies abscess Neurologic Neurologic: Denies headache(s) or weakness Psychiatric Psychiatric: Denies anxiety, depression, suicidal ideation or suicidal thoughts Endocrine Endocrinology: Denies polydipsia, polyphagia or polyuria Allergic/Immunologic Allergic/Immunologic ED: Denies mouth swelling, tongue swelling or urticaria EXAM Physical Exam Const Vital Signs: 09/10/24 10:29 09/10/24 11:00 09/10/24 12:00 Temperature 97.8 F 97.8 F 97.9 F Temperature Source Oral Oral Oral Pulse Rate 89 89 83 Respiratory Rate 16 16 16 Blood Pressure 109/51 L 98/52 L 111/63 Blood Pressure Mean 70 67 79 Pulse Ox 97 97 100 Oxygen Delivery Method Room Air Room Air Room Air 09/10/24 13:00 09/10/24 13:27 09/10/24 14:00 Temperature 97.9 F 97.9 F Temperature Source Oral Pulse Rate 86 86 84 Respiratory Rate 18 18 Blood Pressure 104/72 104/72 100/61 Blood Pressure Mean 82 82 74 Pulse Ox 100 100 100 Oxygen Delivery Method Room Air Room Air Positive well nourished and well developed General Appearance ED: well developed HEENT Reports normocephalic, head/scalp atraumatic and moist mucous membranes Eyes PERRL and EOMs intact bilaterally Neck no lymphadenopathy, supple and no JVD Resp normal respiratory effort and clear to auscultation bilaterally Cardio regular rate, regular rhythm and no murmurs GI normal to inspection, nondistended, normoactive bowel sounds and non-tender Palpation: soft Back/Spine no CVA tenderness and normal ROM Extremity General Extremety ED: Yes edema General Extremity: edema bilateral Neuro oriented x3 and CN's II-XII intact bilaterally Sensorium / Orientation: alert Motor Exam: strength 5/5 throughout Psych mental status grossly normal Mood & Affect: Negative for depressed or tearful Skin Skin Narrative: Left leg is erythematous below the knee with petechial lesions. There is increased warmth. The erythema extends down onto the toes but spares the distal toes. There is some skin abrasion noted laterally as well as 2 small areas medially. The tissue appears wet and friable. There are no palpable cords. It is diffusely tender to palpation. Sepsis Attestation Sepsis Alert: Yes Sepsis Attestation: Agree w/Sepsis Date exam was performed: 09/10/24 Time exam was performed: 12:00 Possible Source of Sepsis: Skin/soft tissue Sepsis Organ Dysfunction Criteria Present: Creatinine > 2.0 mg/dL and INR > 1.5 or aPTT > 60 sec Fluid Resuscitation Fluid resuscitation indicated?: Yes (NO) Sepsis Note Date exam was performed: 09/10/24 Time exam was performed: 12:00 Sepsis Attestation: Sepsis re-evaluation was performed MDM MDM MDM Narrative Medical decision making narrative: Differential diagnosis includes but not limited to cellulitis DVT electrolyte abnormality renal dysfunction coagulopathy Patient's white count is 18 hemoglobin 8.9 platelet count 174. Sodium 136 potassium 2.9 creatinine 2.25 with a BUN of 69. Glucose was 110. Duplex ultrasound is negative for DVT. INR is therapeutic at 2.3 lactic acid 1.5. Blood cultures are obtained. Patient received vancomycin and Zosyn as well as potassium supplementation. I believe the patient's creatinine elevation is most likely due to the addition of the Lasix and the ibuprofen ingestions. Patient is rather thin and I think her blood pressures are more indicative of where her blood pressure typically runs rather than sepsis. Her INR is elevated due to warfarin. I do believe that she has an infection of the leg resulting in the 18,000 white count and she is certainly at risk for bacteremia. However I do not feel that she needs fluid resuscitation at this time. History & Record Review Discussion w/independent historian: Patient and Family Additional record(s) reviewed:: Prior outpatient record and Prior labs Lab Data Attestation: I reviewed the patient's lab results. Labs: Laboratory Results - last 24 hr 09/10/24 09/10/24 11:13 12:43 WBC 18.0 H RBC 2.86 L Hgb 8.9 L Hct 28.0 L MCV 97.9 MCH 31.1 MCHC 31.8 L RDW Std Deviation 52.7 H RDW Coeff of Pavel 14.6 Plt Count 174 MPV 10.1 Immature Gran % (Auto) 0.900 Neut % (Auto) 84.3 H Lymph % (Auto) 7.0 L [place] % (Auto) 5.5 Eos % (Auto) 1.9 Baso % (Auto) 0.4 Absolute Neuts (auto) 15.2 H Absolute Lymphs (auto) 1.26 Nucleated RBC % 0 Platelet Estimate A PT 25.5 H INR 2.3 Sodium 136 Potassium 2.9 L Chloride 100 Carbon Dioxide 20.7 L Anion Gap 15 BUN 69 H Creatinine 2.25 H Estim Creat Clear Calc 17.04 L Est GFR (MDRD) Non-Af 21 L BUN/Creatinine Ratio 30.6 H Glucose 110 H Lactic Acid 1.5 Calcium 8.3 Phosphorus 2.7 Magnesium 1.8 Iron 11 L Iron Saturation 6.0 L Unsaturated IBC 162 L Ferritin 313 Total Bilirubin 0.22 Direct Bilirubin 0.14 AST 30 ALT 7 Alkaline Phosphatase 95 Total Protein 5.9 Albumin 2.6 L Globulin 3.3 Urine Color Yellow Urine Clarity Sl. Cloudy Urine pH 6.0 Ur Specific [place] 1.010 Urine Protein 15 H Urine Glucose (UA) Normal Urine Ketones Negative Urine Occult Blood 25 H Urine Nitrite Negative Urine Bilirubin Negative Urine Urobilinogen Normal Ur Leukocyte Esterase Negative Urine RBC 0 SEEN Urine WBC 0-5 SEEN Ur Squamous Epith Cells 0-5 SEEN Urine Bacteria 1+ Urine Mucus 0 SEEN EKG Initial EKG: Attestation: I personally reviewed and interpreted this EKG as follows: Comments: Sinus rhythm with a ventricular rate of 90 bpm. Management Discussion w/another healthcare provider: Hospitalist (Dr Jimenez) Discharge Plan Dx/Rx/DC Orders Clinical Impression: Cellulitis of leg, RAFAEL (acute kidney injury), Acute hypokalemia, Sepsis, Anticoagulated on Coumadin Disposition Disposition: [facility]
[2024-09-10 11:27] LABS: Absolute Lymphocyte Count 1.26 X10^3/uL (0.83-4.51); Absolute Neutrophil Count 15.2 X10^3/uL (2.0-7.7); Basophil# 0.08 X10^3/uL; Basophil% 0.4 % (0-1); Eosinophil# 0.35 X10^3/uL; Eosinophils% 1.9 % (0-5); Hemoglobin 8.9 g/dL (12.0-15.0); Lymphocyte # 1.26 X10^3/ul (0.83-4.51); Mean Corp Hgb Conc 31.8 g/dL (32-36); Mean Corpuscular Hgb 31.1 pg (27.0-32.0); Mean Corpuscular Volume 97.9 fL (81-99); Mean Platelet Vol. 10.1 fl (6.2-12.0); Monocyte% 5.5 % (0-10); NRBC Flagged by Analyzer 0 % (0-5); Neutrophil # 15.19 X10^3/uL (2.7-7.7); Neutrophil % 84.3 % (47-70); POSITIVE MORPHOLOGY YES; Platelet Count 174 K/mm3 (150-450); RBC Distribution Width CV 14.6 % (11.6-14.6); RBC Distribution Width SD 52.7 fl (35.1-43.9); Red Blood Count 2.86 M/mm3 (4.2-5.4)
[2024-09-10 11:40] LABS: AST(SGOT) 30 U/L (<=31); Alanine Aminotransfer ALT/SGPT 7 U/L (<=34); Albumin, Serum 2.6 g/dL (3.4-4.8); Alkaline Phosphatase 95 U/L (35-104); Anion Gap 15 (5-15); BUN 69 mg/dL (4-19); BUN/Creat Ratio 30.6 RATIO (10-20); Bilirubin, Direct 0.14 mg/dL (0.00-0.30); Calcium,Total 8.3 mg/dL (7.6-11.0); Carbon Dioxide 20.7 mmol/L (21.0-32.0); Chloride 100 mmol/L (98-108); Creatinine, Serum 2.25 mg/dL (0.70-1.20); EST Glomerular Filtration Rate 21 (>60); Estimated Creatinine Clearance 17.04 ml/min (50-250); Globulin 3.3 g/dL (2.2-4.2); Glucose 110 mg/dL (70-99); Potassium 2.9 mmol/L (3.3-5.1); Protein, Total 5.9 g/dL (5.9-8.4); Sodium Level 136 mmol/L (133-145); Total Bilirubin 0.22 mg/dL (0.00-1.30)
[2024-09-10 11:53] LABS: Differential Indicated SCAN CRITERIA MET
[2024-09-10 11:58] LABS: Platelet Estimate A (ADEQ)
[2024-09-10 12:22] LABS: International Normalized Ratio 2.3; Prothrombin Time (Protime)PT. 25.5 SECONDS (11.7-14.9)
[2024-09-10 12:35] LABS: Lactic Acid 1.5 mmol/L (0.0-2.0)
[2024-09-10] MEDS: Piperacil/Tazobactam 4.5 GM in 0.9% Normal Saline (100mL MB+) 100 ML IV (12:40)
[2024-09-10] MEDS: Potassium Chloride 10mEq/100mL 10 MEQ/100 ML IV.SOLN. 100 MEQ IV BOLUS (12:44)
[2024-09-10] MEDS: Potassium Chloride Oral Tablet 20 MEQ 40 MEQ PO (12:52)
--- NOTE | 2024-09-10 12:55 | PCM.HP.STD ---
[facility] - General General Date of Admission: 09/10/24 Date of Service: 09/10/24 Chief Complaint: Left lower leg pain and swelling HPI Narrative BAILEY TIJERINA, is a 83 F who presented to [facility] ED on 09/10/2024 with left lower leg pain and swelling. Patient is an [place] female with fairly good functional status at baseline. She does have chronic stasis changes and wears compression stockings. Has had a left lower leg wound for the past several weeks after she bumped the leg on the bed. They have been seeing a local doctor for management and been using Silvadene cream and dressings. Unfortunately, it began to weep more over the past few days became more swollen so it was recommended she come to the ED for further evaluation. Patient notably is on Coumadin for A-fib. She was subtherapeutic with her INR on Friday at 1.5, so left lower extremity proximal ultrasound was obtained and was negative for DVT. She is therapeutic with her INR today. Labs were otherwise notable for creatinine 2.25 (baseline 0.8) and patient notes that she had been taking Lasix for the lower extremity swelling and had also been taking ibuprofen 600 mg every 6 hours for the past several days. Her hemoglobin was also decreased from baseline; was 8.9 today and baseline appears to be around 11. She denies any change in bowel movements or dark or bloody stools recently. She does feel more fatigued than her normal but has attributed this to her potential lower extremity infection. Given presumed left lower extremity cellulitis, patient was started on IV antibiotics and hospitalist was contacted for admission. I saw the patient at bedside in the ED, 2 daughters were present. Patient was mildly fatigued appearing but otherwise sitting back comfortably in bed, conversing normally, in no acute distress. She reported mild pain currently and tenderness to the touch of her lower leg. She denies any fevers or chills. No other acute concerns currently. [facility] Medical History Fatigue Grade I diastolic dysfunction Venous incompetence Secondary pulmonary arterial hypertension Non-rheumatic tricuspid valve insufficiency Paroxysmal atrial fibrillation Paroxysmal supraventricular tachycardia Essential hypertension Vitamin D deficiency Family history of colon cancer History of colonic polyps Scoliosis Diverticulosis Hiatal hernia Lipodermatosclerosis Hyperpigmentation of skin Venous hypertension, chronic, with ulcer Chronic venous insufficiency Venous ulcer of left leg Leg edema, left Edema of left lower leg due to peripheral venous insufficiency 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 Home Medications ?Medication ?Instructions ?Recorded ?Last Taken ?Type coenzyme Q10 200 mg/gram oral 200 mg PO DAILY 10/13/20 09/10/24 History powder (H2Q CoQ10) metoprolol succinate 25 mg 25 mg PO DAILY 10/13/20 09/10/24 History tablet,extended release 24 hr raloxifene 60 mg tablet (Evista) 60 mg PO DAILY 10/13/20 09/10/24 History cholecalciferol (vitamin D3) 25 2,000 unit PO DAILY 01/18/21 09/10/24 History mcg (1,000 unit) tablet vitamin E mixed 400 unit tablet 400 unit PO DAILY 01/18/21 09/10/24 History gabapentin 100 mg capsule 100 mg PO QHS 07/12/21 09/09/24 History potassium chloride 10 mEq 10 meq PO BID 07/12/21 09/10/24 History tablet,extended release mv-mn-folic 200 mcg-vit K 15 1 cap PO DAILY 08/06/22 09/10/24 History mcg-lutein 5 mg-zeaxanthin 1 mg capsule (PreserVision AREDS 2 Plus Multivit) xsaryff-mkihzmyuk-bblu 333 mg-133 0.5 tab PO BID 09/10/24 09/10/24 History mg-5 mg tablet furosemide 20 mg tablet (Lasix) 20 mg PO DAILY 09/10/24 09/10/24 History hydrochlorothiazide 12.5 mg tablet 12.5 mg PO DAILY 09/10/24 09/10/24 History warfarin 1 mg tablet (Jantoven) 1 mg PO MOFR 09/10/24 09/10/24 History warfarin 2 mg tablet (Jantoven) 2 mg PO SUTUWETHSA 09/10/24 09/09/24 History Allergy/AdvReac Type Severity Reaction Status Date / Time No Known Allergies Allergy Verified 09/10/24 10:30 Family History Mother Heart disease Father Colon cancer Brother Asthma Alzheimers disease Surgical History History of loop electrosurgical excision procedure (LEEP) of cervix H/O tubal ligation History of cholecystectomy Social History Smoking Status: Never smoker alcohol intake: never substance use type: does not use caffeine: Yes Type: carbonated beverages and coffee ROS Constitutional Constitutional: Reports fatigue; Denies chills, fever(s) or weakness Eyes Eyes: Denies change in vision Cardiovascular Cardiovascular: Denies chest pain Respiratory/Chest Respiratory/Chest: Denies shortness of breath at rest Gastrointestinal Gastrointestinal: Denies abdominal pain Musculoskeletal Musculoskeletal: Reports other Details: Leg pain and redness with swelling Vital Signs Vital Signs Vital Signs: 09/10/24 10:29 09/10/24 11:00 Temperature 97.8 F 97.8 F Temperature Source Oral Oral Pulse Rate 89 89 Respiratory Rate 16 16 Blood Pressure 109/51 L 98/52 L Blood Pressure Mean 70 67 Pulse Ox 97 97 Oxygen Delivery Method Room Air Room Air Weight Weight: 64.8 kg Body Mass Index (BMI) 26.1 Physical Exam Const alert, oriented x3, no apparent distress and average body habitus Constitutional Narrative: Pleasant elderly female, mildly fatigued appearing but otherwise sitting back comfortably in bed, conversing normally, in no acute distress. General Appearance: cooperative and comfortable HEENT normocephalic, head/scalp atraumatic, hearing grossly normal bilaterally, nasal mucous membranes and turbinates normal and moist oral mucous membranes Eyes PERRL, EOMs intact bilaterally and conjunctivae normal Neck full ROM Chest inspection of chest normal Resp normal respiratory effort, normal air movement, no use of accessory muscles and clear to auscultation bilaterally Cardio regular rate, regular rhythm, no murmurs and peripheral pulses 2+ throughout GI normal to inspection, nondistended, normoactive bowel sounds, soft to palpation, non-tender and non-distended Back/Spine normal ROM Extremity Extremity Narrative: Left lower extremity with redness from mid leg up to the knee and weeping of clearish fluid from wound. Psych mental status grossly normal Results Lab / Micro Data 09/10/24 11:13 09/10/24 11:13 Labs: Laboratory Results - last 24 hr 09/10/24 11:13: WBC 18.0 H, RBC 2.86 L, Hgb 8.9 L, Hct 28.0 L, MCV 97.9, MCH 31.1, MCHC 31.8 L, RDW Std Deviation 52.7 H, RDW Coeff of Pavel 14.6, Plt Count 174, MPV 10.1, Immature Gran % (Auto) 0.900, Neut % (Auto) 84.3 H, Lymph % (Auto) 7.0 L, [place] % (Auto) 5.5, Eos % (Auto) 1.9, Baso % (Auto) 0.4, Absolute Neuts (auto) 15.2 H, Absolute Lymphs (auto) 1.26, Nucleated RBC % 0, Platelet Estimate A, PT 25.5 H, INR 2.3, Sodium 136, Potassium 2.9 L, Chloride 100, Carbon Dioxide 20.7 L, Anion Gap 15, BUN 69 H, Creatinine 2.25 H, Estim Creat Clear Calc 17.04 L, Est GFR (MDRD) Non-Af 21 L, BUN/Creatinine Ratio 30.6 H, Glucose 110 H, Lactic Acid 1.5, Calcium 8.3, Total Bilirubin 0.22, Direct Bilirubin 0.14, AST 30, ALT 7, Alkaline Phosphatase 95, Total Protein 5.9, Albumin 2.6 L, Globulin 3.3 Assessment & Plan Assessment/Plan (1) Cellulitis of leg: (2) RAFAEL (acute kidney injury): PLAN: Plan Patient is an 83-year-old female who presented [facility] ED on 09/10/2024 with worsening left lower extremity pain and swelling. 1. Left lower extremity cellulitis ? Admit under inpatient status to [facility]. Wound care consulted. Left lower extremity duplex ultrasound in ED negative for DVT. Has cellulitis from mid leg up to the knee with clearish weeping from wound on admission. WBC count 18,000 but patient otherwise afebrile and hemodynamically stable, did not meet sepsis criteria. Will treat with IV vancomycin and Zosyn for now. Monitor closely. 2. RAFAEL ? Creatinine 2.25 on admit, baseline 0.8-0.9. Presume prerenal etiology in setting of patient taking increased dose of Lasix for lower extremity swelling as well as home hydrochlorothiazide. Given 1 L of IV fluids on admit and will encourage p.o. intake. Follow-up a.m. BMP and monitor urine output. Hold Lasix and hydrochlorothiazide. 3. Acute on chronic anemia ? Hemoglobin 8.9 on admit, was 11.5 about 1 month prior to admission. Iron studies with low iron and iron saturation but normal ferritin level. Patient denies any stool changes. However, is high risk for GI bleed given she is on Coumadin for anticoagulation. Repeat hemoglobin this afternoon pending. If repeat remains low, will plan for GI consult for evaluation for GI bleed. 4. Paroxysmal A-fib on Coumadin, hypertension ? In normal sinus rhythm on admit. INR therapeutic at 2.3. Continue home Toprol and Coumadin. Holding home Lasix and hydrochlorothiazide as above. 5. Hypokalemia ? Potassium 2.9 on admit. Mag and Phos normal. Presume secondary to increased Lasix dosing as above. Replete potassium as needed. 6. Neuropathy ? Continue home gabapentin. DVT prophylaxis: Not indicated, on Coumadin CODE STATUS: Full code, verified Expected disposition: Home, 2 to 3 days Total clinical time spent by myself addressing the patient's medical issues, reviewing all the data, and collaborating with patient's care team: 55 minutes. Charges/Coding Visit Charges Inpatient E&M: 81902 Init Hosp L2
[2024-09-10 12:56] LABS: Mucous, Urine 0 SEEN /hpf (<or=2+); Red Blood Cells-Urine 0 SEEN /hpf (0-5)
[2024-09-10 13:05] LABS: Color, Urine Yellow (Yellow); Glucose, Dipstick Normal (Normal); Ketone-Dipstick Negative (Negative); Leukocyte Esterase-Dipstick Negative /ul (Negative); Nitrite-Dipstick Negative (Negative); Occult Blood-Urine 25 /ul (Negative); Protein-Dipstick 15 mg/dl (Negative); Urine Bilirubin Dipstick Negative (Negative); Urine Clarity Sl. Cloudy (Clear); Urine Urobilinogen Normal (Normal)
[2024-09-10 13:15] LABS: Bacteria 1+ /hpf (None Seen); Squamous Epithelial Cells - UA 0-5 SEEN /hpf (5-10); White Blood Cells 0-5 SEEN /hpf (0-5)
--- NOTE | 2024-09-10 13:31 | CASEMGMT ---
Care Management Face to Face with patient for initial transition planning/care coordination assessment in the ED.? This journalists and other writers introduced self and role at [facility]. Patient alert and oriented. Patient willing to participate in assessment and is able to answer all questions appropriately.? Care providers, pharmacy, and demographics verified. Admitting Diagnosis: Wound Other diagnosis history: ?Hypertension, A-fib, hypertension, diverticulosis PCP: ?Stacy Specialists: Nikki Dobbs Preferred Pharmacy: [facility] Insurance: ?[employer] Prescription Benefit: ?[place] Living Will/HPOA: ?family believes it is completed, will bring in copy when able LNOK: ?daughter Nenita Living Arrangements: Patient lives with disabled son in back yard of daughter.? Patient independent with ADLs Transportation: ?have drivers when needed DME: ?cane, walker, adjustable bed, shower chair, grab bars HHC: none SNF/Rehab: ?none Community Resources: ?none Behavioral Health History: ?none Patient goals: Patient wishes to discharge home. Patient denies any further needs or concerns at this time. Disposition Plan: admission to acute; RN CM/SW to follow for discharge planning needs that may arise. Dorothy Dugan, WATER RESOURCE ENGINEERING SPECIALIST, CASHIER HOST/HOSTESS
[2024-09-10] MEDS: Vancomycin HCl 1,500 MG in 0.9% Normal Saline (500mL Bag) 500 ML 250 MG IV (13:46)
[2024-09-10] MEDS: Lactated Ringers 500 ML IV ×2 (13:51→14:54)
[2024-09-10 14:26] LABS: Phosphorus 2.7 mg/dL (2.7-4.5)
[2024-09-10 14:36] LABS: Ferritin 313 ng/mL (22-378); Iron 11 ug/dL (50-170); Iron Binding Capacity,Unsat 162 ug/dL (228-428); Magnesium 1.8 mg/dL (1.5-2.2)
[2024-09-10 15:55] LABS: Iron Binding Capacity,Total 173 ug/dL (250-450)
--- NOTE | 2024-09-10 15:58 | EX.EMERGENCY ---
EMERGENCY DOCUMENTATION INITIATED: Date: 09/09/24 Time: 699 16:00
--- NOTE | 2024-09-10 16:15 | PHA.PHARE_ITS ---
Consult Antibiotic Management Pharmacy has been consulted to manage selected antibiotic: Vancomycin Type of Intervention Type of Consult: New start Suspected Infection Suspected Infection: Skin/Soft tissue Labs Labs: Sodium 136 mmol/L (133-145) 09/10/24 11:13 Potassium 2.9 mmol/L (3.3-5.1) L 09/10/24 11:13 Chloride 100 mmol/L (98-108) 09/10/24 11:13 Carbon Dioxide 20.7 mmol/L (21.0-32.0) L 09/10/24 11:13 Anion Gap 15 (5-15) 09/10/24 11:13 BUN 69 mg/dL (4-19) H 09/10/24 11:13 Creatinine 2.25 mg/dL (0.70-1.20) H 09/10/24 11:13 Est GFR (MDRD) Non-Af 21 (>60) L 09/10/24 11:13 BUN/Creatinine Ratio 30.6 RATIO (10-20) H 09/10/24 11:13 Glucose 110 mg/dL (70-99) H 09/10/24 11:13 Goal Trough Goal Trough: 15-20 mcg/mL Pharmacy Plan for Drug Dosing Pharmacy Plan for Drug Dosing: NEW IV VANCOMYCIN Consulting Physician: Dr. Jacobson Indication: SSTI Goal Trough: 15-20 SrCr: 2.25 CrCl: 17 mL/min Comments: Patient had initial dose of 1500mg IV x1 in ED 09/10/24 Vancomycin Dose: Patient with RAFAEL and estimated CrCl <20. Will dose based on random levels until renal function improves/stabilizes. Will not give any furthe r doses of vancomycin until a random level is drawn Pending Level: *RANDOM* 09/12/24 @0600 (with AM labs) Pharmacy Service will continue to monitor and adjust dosing as required.
[2024-09-10] MEDS: Potassium Chloride Oral Tablet 10 MEQ PO (16:34)
[2024-09-10] MEDS: Acetaminophen 325 MG Tablet 650 MG PO ×2 (16:34→22:22)
[2024-09-10 16:54] LABS: Hematocrit 26.4 % (37-47); Hemoglobin 8.7 g/dL (12.0-15.0); Mean Corpuscular Hgb 31.2 pg (27.0-32.0); Mean Corpuscular Volume 94.6 fL (81-99); Mean Platelet Vol. 10.1 fl (6.2-12.0); Platelet Count 201 K/mm3 (150-450); RBC Distribution Width CV 14.6 % (11.6-14.6); RBC Distribution Width SD 50.9 fl (35.1-43.9); Red Blood Count 2.79 M/mm3 (4.2-5.4); White Blood Count 18.3 K/mm3 (4.4-11.0)
[2024-09-10 19:05] LABS: Vitamin B12 899 pg/mL (180-914)
[2024-09-10] MEDS: Potassium Chloride Oral Tablet 20 MEQ PO (20:09)
[2024-09-10] MEDS: Piperacil/Tazobactam 3.375 GM in 0.9% Normal Saline (50mL MB+) 50 ML IV (22:20)
[2024-09-10] MEDS: Gabapentin 100 MG Capsule PO (22:20)
[2024-09-11] VITALS (10 sets, daily range): BP systolic 96–111; BP diastolic 52–58; PULSE 86–110; RESP 16–20; TEMP 36.5–37.1; O2SAT 92–100
[2024-09-11 06:45] LABS: Hematocrit 24.9 % (37-47); Hemoglobin 8.4 g/dL (12.0-15.0); Mean Corp Hgb Conc 33.7 g/dL (32-36); Mean Corpuscular Hgb 31.7 pg (27.0-32.0); Mean Platelet Vol. 9.9 fl (6.2-12.0); Platelet Count 181 K/mm3 (150-450); RBC Distribution Width CV 14.8 % (11.6-14.6); RBC Distribution Width SD 51.3 fl (35.1-43.9); Red Blood Count 2.65 M/mm3 (4.2-5.4); White Blood Count 15.6 K/mm3 (4.4-11.0)
[2024-09-11 06:48] LABS: Prothrombin Time (Protime)PT. 32.1 SECONDS (11.7-14.9)
--- NOTE | 2024-09-11 09:15 | RAD_ITS ---
PROCEDURE: CHEST 1 VIEW (PORTABLE) 09/11/2024 REASON FOR EXAM: HYPOXIA TECHNIQUE: Frontal view of the chest. COMPARISON: None FINDINGS: Large hiatal hernia. Mild bibasilar pleural effusions. No pneumothorax. Bibasilar opacities may reflect compressive atelectasis, multifocal pneumonia, and/or aspiration. Moderate cardiomegaly. Calcified aortic arch. RAD/Chest 1 View (Portable) IMPRESSION: Large hiatal hernia. Mild bibasilar pleural effusions. Bibasilar opacities may reflect compressive atelectasis, multifocal pneumonia, and/or aspiration. Moderate cardiomegaly. Reading Location: [id number]
[2024-09-11 09:22] LABS: Anion Gap 11 (5-15); BUN 59 mg/dL (4-19); BUN/Creat Ratio 37.9 RATIO (10-20); Chloride 109 mmol/L (98-108); Creatinine, Serum 1.55 mg/dL (0.70-1.20); EST Glomerular Filtration Rate 33 (>60); Estimated Creatinine Clearance 23.07 ml/min (50-250); Glucose 98 mg/dL (70-99); Potassium 3.4 mmol/L (3.3-5.1); Sodium Level 143 mmol/L (133-145)
--- NOTE | 2024-09-11 09:37 | PN.HOSP_ITS ---
Reason for Visit Reason for Visit: Diagnoses Cellulitis of unspecified part of limb (09/10/24) Acute kidney failure, unspecified (09/10/24) Subjective Subjective Saw patient at bedside this morning, family present. Patient was requiring 2 L nasal cannula this morning to maintain appropriate oxygen saturations. She however felt comfortable and denied any shortness of breath at rest. Denied any fevers or chills this morning. Continued to have left lower leg discomfort and tenderness to palpation. Notably leg was wrapped up with Seven wrap by wound care. No other new concerns today. Objective Data Objective Data Vital Signs: Vital Signs Temp Pulse Resp BP Pulse Ox O2 Del Method O2 Flow Rate 97.7 F L 90 18 96/52 L 97 Nasal Cannula 4 09/11/24 08:39 09/11/24 08:39 09/11/24 08:39 09/11/24 08:39 09/11/24 08:40 09/11/24 08:40 09/11/24 08:40 Oxygen Flow Rate (L/min) 4 Oxygen Delivery Method Nasal Cannula Weight: 62.324 kg Body Mass Index (BMI) 26.8 Intake & Output: Intake and Output for Last 24 Hours 09/09/24 09/10/24 09/11/24 23:59 23:59 23:59 Intake Total 1730 / 1 1191 / 1191 Balance 173 / 2070 1191 / 1191 Lab / Micro Data 09/11/24 05:34 09/11/24 05:34 Labs: Laboratory Results - last 24 hr 09/10/24 11:13: WBC 18.0 H, RBC 2.86 L, Hgb 8.9 L, Hct 28.0 L, MCV 97.9, MCH 31.1, MCHC 31.8 L, RDW Std Deviation 52.7 H, RDW Coeff of Pavel 14.6, Plt Count 174, MPV 10.1, Immature Gran % (Auto) 0.900, Neut % (Auto) 84.3 H, Lymph % (Auto) 7.0 L, [place] % (Auto) 5.5, Eos % (Auto) 1.9, Baso % (Auto) 0.4, Absolute Neuts (auto) 15.2 H, Absolute Lymphs (auto) 1.26, Nucleated RBC % 0, Platelet Estimate A, PT 25.5 H, INR 2.3, Sodium 136, Potassium 2.9 L, Chloride 100, C arbon Dioxide 20.7 L, Anion Gap 15, BUN 69 H, Creatinine 2.25 H, Estim Creat Clear Calc 17.04 L, Est GFR (MDRD) Non-Af 21 L, BUN/Creatinine Ratio 30.6 H, G lucose 110 H, Lactic Acid 1.5, Calcium 8.3, Phosphorus 2.7, Magnesium 1.8, Iron 11 L, TIBC 173 L, Iron Saturation 6.0 L, Unsaturated IBC 162 L, Ferritin 313, Total Bilirubin 0.22, Direct Bilirubin 0.14, AST 30, ALT 7, Alkaline Phosphatase 95, Total Protein 5.9, Albumin 2.6 L, Globulin 3.3, Vitamin B12 899 09/10/24 12:43: Urine Color Yellow, Urine Clarity Sl. Cloudy, Urine pH 6.0, Ur Specific [place] 1.010, Urine Protein 15 H, Urine Glucose (UA) Normal, Urine Ketones Negative, Urine Occult Blood 25 H, Urine Nitrite Negative, Urine Bilirubin Negative, Urine Urobilinogen Normal, Ur Leukocyte Esterase Negative, Urine RBC 0 SEEN, Urine WBC 0-5 SEEN, Ur Squamous Epith Cells 0-5 SEEN, Urine Bacteria 1+, Urine Mucus 0 SEEN 09/10/24 13:55: Serum Folate 23.80 09/10/24 16:45: WBC 18.3 H, RBC 2.79 L, Hgb 8.7 L, Hct 26.4 L, MCV 94.6, MCH 31.2, MCHC 33.0, RDW Std Deviation 50.9 H, RDW Coeff of Pavel 14.6, Plt Count 201, MPV 10.1 09/11/24 05:34: WBC 15.6 H, RBC 2.65 L, Hgb 8.4 L, Hct 24.9 L, MCV 94.0, MCH 31.7, MCHC 33.7, RDW Std Deviation 51.3 H, RDW Coeff of Pavel 14.8 H, Plt Count 181, MPV 9.9, PT 32.1 H, INR 3.0, Sodium 143, Potassium 3.4, Chloride 109 H, Carbon Dioxide 23.0, Anion Gap 11, BUN 59 H, Creatinine 1.55 H, Estim Creat Clear Calc 23.07 L, Est GFR (MDRD) Non-Af 33 L, BUN/Creatinine Ratio 37.9 H, Glucose 98, Calcium 8.0 Radiography Diagnostic Testing: Radiology Impression Venous Doppler Study 09/10/24 10:49 Interpretation Summary Deep veins of the left lower extremity are patent and compressible segmentally. There is no evidence of left lower extremity deep vein thrombosis. Valvular competence appears intact within the proximal deep venous system on the left . The left great saphenous vein appears patent and compressible segmentally. The right common femoral vein is patent and compressible . Ordering Physician: Ramsey Gamez Referring Physician: Marguerite Kumar Performed By: Janette Shook RVT Chest X-Ray 09/11/24 09:15 IMPRESSION: Large hiatal hernia. Mild bibasilar pleural effusions. Bibasilar opacities may reflect compressive atelectasis, multifocal pneumonia, and/or aspiration. Moderate cardiomegaly. Reading Location: [facility] Physical Exam Const alert, oriented x3, no apparent distress and average body habitus Constitutional Narrative: Pleasant elderly female, mildly fatigued appearing but otherwise sitting back comfortably in bed, conversing normally, in no acute distress. Stable. General Appearance: cooperative and comfortable HEENT normocephalic, head/scalp atraumatic, hearing grossly normal bilaterally, nasal mucous membranes and turbinates normal and moist oral mucous membranes Eyes PERRL, EOMs intact bilaterally and conjunctivae normal Neck full ROM Chest inspection of chest normal Resp normal respiratory effort and no use of accessory muscles Resp Narrative: Breathing comfortably on 2 L nasal cannula at rest. Decreased breath sounds at bilateral lung bases but otherwise good air movement throughout with no wheezing or crackles noted. Cardio regular rate, regular rhythm, no murmurs and peripheral pulses 2+ throughout GI normal to inspection, nondistended, normoactive bowel sounds, soft to palpation, non-tender and non-distended Back/Spine normal ROM Extremity Extremity Narrative: Left lower leg with Seven wrap in place. Psych mental status grossly normal Assessment & Plan Assessment/Plan (1) Cellulitis of leg: (2) RAFAEL (acute kidney injury): PLAN: Plan Patient is an 83-year-old female who presented [facility] ED on 09/10/2024 with worsening left lower extremity pain and swelling. 1. Left lower extremity cellulitis ? Wound care following. Left lower extremity duplex ultrasound in ED negative for DVT. Had cellulitis from mid leg up to the knee with clearish weeping from wound on admission. WBC count 18,000 but patient otherwise afebrile and hemodynamically stable, did not meet sepsis criteria. Leg wrapped with Seven wrap on admission and has been stable. Unable to collect any cultures from wound. Continue to treat with IV vancomycin and Zosyn and monitor closely. 2. RAFAEL, improving ? Creatinine 2.25 on admit, baseline 0.8-0.9. Suspect prerenal etiology in setting of patient taking increased dose of Lasix for lower extremity swelling prior to admission as well as home hydrochlorothiazide. Given 1 L of fluids on admit. Repeat creatinine 1.55 on hospital day 2. Notably patient did develop hypoxia as noted below concerning for volume overload. Further workup as noted below. Will hold off on further IV fluids and gave 1 dose of IV Lasix 20 mg on 09/11. Continue to monitor BMP and urine output daily. Hold home Lasix and hydrochlorothiazide. 3. Acute on chronic anemia ? Hemoglobin 8.9 on admit, was 11.5 about 1 month prior to admission. Iron studies with low iron and iron saturation but normal ferritin level. Patient denies any stool changes. However, is high risk for GI bleed given she is on Coumadin for anticoagulation. Repeat hemoglobin 8.4 on 09/11. GI consulted for evaluation for GI bleed. Will treat with IV PPI twice daily for now. Will hold home warfarin for now, monitor daily INR. Suspect patient would not get EGD until Friday so we will keep on regular diet until then. 4. Acute hypoxia ? Found to be hypoxic requiring 2 L nasal cannula on morning of 09/11. Breathing comfortably on room air at rest, asymptomatic. Chest x-ray showed moderate cardiomegaly with mild bibasilar pleural effusions concerning for heart failure. Follows with cardiology as below, last echo in 2020 was unremarkable. Repeat echo ordered. Given 1 dose of IV Lasix 20 mg on 09/11. Monitor closely. 4. Paroxysmal A-fib on Coumadin, hypertension ? Follows with [place] cardiology. In normal sinus rhythm on admit. INR therapeutic at 2.3. Continue home Toprol. Holding home Coumadin, Lasix and hydrochlorothiazide as above. 5. Hypokalemia ? Potassium 2.9 on admit. Mag and Phos normal. Presume secondary to increased Lasix dosing as above. Replete potassium as needed. 6. Neuropathy ? Continue home gabapentin. DVT prophylaxis: Not indicated, on Coumadin CODE STATUS: Full code, verified Expected disposition: Home, TBD Total clinical time spent by myself addressing the patient's medical issues, reviewing all the data, and collaborating with patient's care team: 35 minutes. Charges/Coding Visit Charges Inpatient E&M: 89946 Subs Hosp L2
[2024-09-11] MEDS: Furosemide 20 MG/2 ML VIAL IV (09:53)
[2024-09-11] MEDS: Potassium Chloride Oral Tablet 10 MEQ PO ×2 (09:54→17:12)
[2024-09-11] MEDS: Cholecalciferol (VIT D3) 25 MCG TABLET (1,000 UNITS) 50 MCG PO (09:55)
[2024-09-11] MEDS: 0.9% Saline Lock 10 ML Syringe IV ×2 (09:57→12:27)
[2024-09-11] MEDS: Piperacil/Tazobactam 3.375 GM in 0.9% Normal Saline (50mL MB+) 50 ML IV ×2 (09:59→22:15)
[2024-09-11] MEDS: Acetaminophen 325 MG Tablet 650 MG PO ×3 (10:11→22:18)
--- NOTE | 2024-09-11 11:28 | ECHOD_ITS ---
Reason For Study Reason For Study: CONGESTIVE HEART FAILURE Procedure This was a 2D Doppler, Color Flow transthoracic echocardiogram. Exam performed portable in patient room. Left Ventricle Normal LV size. Left ventricular systolic function is normal. The left ventricular ejection fraction is 70 %. No regional wall motion abnormalities noted. Right Ventricle Normal RV size. Normal systolic function. Atria Normal left atrium. Normal right atrium. Mitral Valve There is moderate mitral annular calcification. The mitral valve chordae are thickened and/or calcified. Tricuspid Valve Normal tricuspid valve. Mild (1+) tricuspid valve insufficiency. Pulmonary artery systolic pressure is 44 mmHg. Aortic Valve Trisinus/trileaflet aortic valve. Mild focal aortic valve calcification. Peak aortic valve gradient 24 mmHg. Mean aortic valve gradient 14 mmHg. Mild (1+) aortic valve insufficiency. Pulmonic Valve Normal pulmonic valve. Great Vessels Normal aortic root. Pericardium/Pleural No pericardial effusion. MMode/2D Measurements & Calculations LVIDd: 3.4 cm IVSd: 1.2 cm LVOT diam: 1.9 cm LVIDs: 1.5 cm LVPWd: 1.0 cm LVOT area: 2.8 cm2 RVDd: 3.0 cm FS: 56.0 % asc Aorta Diam: 3.4 cm LAV(MOD-bp): 43.0 ml LVAd ap4: 16.4 cm2 LAV(MOD-bp) Indexed: 27.1 ml/m2 LVLd ap4: 6.1 cm LAV(MOD-sp2): 42.9 ml EDV(MOD-sp4): 36.3 ml LAV(MOD-sp4): 41.4 ml EDV(sp4-el): 37.4 ml LVAs ap4: 7.2 cm2 LVLs ap4: 4.9 cm ESV(MOD-sp4): 8.9 ml ESV(sp4-el): 9.1 ml EF(MOD-sp4): 75.4 % EF(sp4-el): 75.6 % LVAd ap2: 15.3 cm2 SV(MOD-sp4): 27.4 ml SV(MOD-sp2): 24.2 ml LVLd ap2: 6.3 cm SI(MOD-sp4): 17.2 ml/m2 SI(MOD-sp2): 15.2 ml/m2 EDV(MOD-sp2): 31.0 ml EDV(sp2-el): 31.7 ml LVAs ap2: 6.3 cm2 LVLs ap2: 5.0 cm ESV(MOD-sp2): 6.9 ml ESV(sp2-el): 6.8 ml EF(MOD-sp2): 77.8 % SV(sp4-el): 28.3 ml Ao sinus diam: 3.[address] Junction: 2.6 cm LA dimension(2D): 2.7 cm LA A4 area: 17.3 cm2 RA A4 area: 15.6 cm2 TAPSE: 2.0 cm Time Measurements MV dec time: 0.22 sec Doppler Measurements & Calculations MV E max jake: 112.3 cm/sec Lat Peak E' Jake: 9.4 cm/sec Med Peak E' Jake: 7.3 cm/sec MV A max jake: 184.4 cm/sec E/E' lat: 11.9 E/E' med: 15.5 MV E/A: 0.61 MV dec slope: 512.8 cm/sec2 Ao V2 max: 248.5 cm/sec AI max jake: 415.0 cm/sec Ao max P.7 mmHg AI max P.9 mmHg Ao V2 mean: 174.9 cm/sec AI dec slope: 323.4 cm/sec2 Ao mean P.9 mmHg AI P1/2t: 375.9 msec Ao V2 VTI: 49.4 cm AV (velocity ratio): 0.62 JACKELINE(I,D): 1.7 cm2 JACKELINE(V,D): 1.7 cm2 LV V1 max: 148.9 cm/sec SV(LVOT): 84.4 ml PA V2 max: 94.1 cm/sec LV V1 max P.9 mmHg LV V1 mean P.3 mmHg LV V1 mean: 110.0 cm/sec LV V1 VTI: 30.6 cm TR max jake: 317.9 cm/sec TR max P.4 mmHg ECHO/Echo Complete Interpretation Summary Normal LV size. Left ventricular systolic function is normal. No regional wall motion abnormalities noted. Mean aortic valve gradient 14 mmHg. Mild (1+) aortic valve insufficiency. The left ventricular ejection fraction is 70 %. Pulmonary artery systolic pressure is 44 mmHg. Ordering Physician: Hi Jacobson Referring Physician: Hi Jacobson Performed By: Manasa Dodd RDCS
[2024-09-11] MEDS: 0.9% Normal Saline (250mL Bag) 250 ML 15 ML IV ×2 (12:18→12:37)
[2024-09-11 12:26] LABS: Pro- Brain NATRIURETIC PEPTIDE 3273 pg/mL (<=1800)
--- NOTE | 2024-09-11 12:43 | CASEMGMT ---
KINGA ISAACS NOTE: KINGA ISAACS to room. Pt resting in bed, family @ bedside. Introduced self and role. Discussed discharge and wound care. Pt states her daughter's can assist w/wound care. Pt states they have been washing her wound w/Dreft laundry detergent. KINGA ISAACS advised against using this on wounds and skin and to follow instructions given for wound care @ dc. She voices understanding. Pt states she has been having generalized weakness. Made aware PT/OT will be working w/her and encouraged getting OOB and increasing activity as tolerated to increase strength. Luciano HERNANDEZN KINGA CM
[2024-09-11] MEDS: Pantoprazole Sodium 40 MG in 0.9% Normal Saline (100mL MB+) 100 ML 330 MG IV ×2 (13:41→22:13)
[2024-09-11] MEDS: Metoprolol(XL)Succ 25 MG Tablet PO (15:37)
[2024-09-11] MEDS: oxyCODONE 5 MG Tablet PO (20:13)
--- NOTE | 2024-09-11 21:22 | EX.PCM.CON.G ---
HPI Consult Data Date of Consult: 09/11/24 HPI Narrative Reason for Consultation: Acute on chronic anemia HPI Narrative: BAILEY TIJERINA, is a 83 F who presented with a chief complaint of lower extremity edema with inflammation of the right and left lower extremity with the right being greater than the left. She is on Coumadin for prior atrial fibrillation history and noted that her INR was subtherapeutic on Friday at 1.5. I was asked to see her due to a decreasing hemoglobin. Her hemoglobin usually ranges between 11 and 12. FOR[facility]LY [facility] Medical History Fatigue Grade I diastolic dysfunction Venous incompetence Secondary pulmonary arterial hypertension Non-rheumatic tricuspid valve insufficiency Paroxysmal atrial fibrillation Paroxysmal supraventricular tachycardia Essential hypertension Vitamin D deficiency Family history of colon cancer History of colonic polyps Scoliosis Diverticulosis Hiatal hernia Lipodermatosclerosis Hyperpigmentation of skin Venous hypertension, chronic, with ulcer Chronic venous insufficiency Venous ulcer of left leg Leg edema, left Edema of left lower leg due to peripheral venous insufficiency 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 Home Medications ?Medication ?Instructions ?Recorded ?Last Taken ?Type coenzyme Q10 200 mg/gram oral 200 mg PO DAILY 10/13/20 09/10/24 History powder (H2Q CoQ10) metoprolol succinate 25 mg 25 mg PO DAILY 10/13/20 09/10/24 History tablet,extended release 24 hr raloxifene 60 mg tablet (Evista) 60 mg PO DAILY 10/13/20 09/10/24 History cholecalciferol (vitamin D3) 25 2,000 unit PO DAILY 01/18/21 09/10/24 History mcg (1,000 unit) tablet vitamin E mixed 400 unit tablet 400 unit PO DAILY 01/18/21 09/10/24 History gabapentin 100 mg capsule 100 mg PO QHS 07/12/21 09/09/24 History potassium chloride 10 mEq 10 meq PO BID 07/12/21 09/10/24 History tablet,extended release mv-mn-folic 200 mcg-vit K 15 1 cap PO DAILY 08/06/22 09/10/24 History mcg-lutein 5 mg-zeaxanthin 1 mg capsule (PreserVision AREDS 2 Plus Multivit) cmulhzo-yhmmkhdvw-hrld 333 mg-133 0.5 tab PO BID 09/10/24 09/10/24 History mg-5 mg tablet furosemide 20 mg tablet (Lasix) 20 mg PO DAILY 09/10/24 09/10/24 History hydrochlorothiazide 12.5 mg tablet 12.5 mg PO DAILY 09/10/24 09/10/24 History warfarin 1 mg tablet (Jantoven) 1 mg PO MOFR 09/10/24 09/10/24 History warfarin 2 mg tablet (Jantoven) 2 mg PO SUTUWETHSA 09/10/24 09/09/24 History Allergy/AdvReac Type Severity Reaction Status Date / Time No Known Allergies Allergy Verified 09/10/24 10:30 Family History Mother Heart disease Father Colon cancer Brother Asthma Alzheimers disease Surgical History History of loop electrosurgical excision procedure (LEEP) of cervix H/O tubal ligation History of cholecystectomy Social History Smoking Status: Never smoker alcohol intake: never substance use type: does not use caffeine: Yes Type: carbonated beverages and coffee ROS Constitutional Constitutional: Denies fatigue, fever(s), poor appetite, weight gain or weight loss Gastrointestinal Gastrointestinal: Denies belching, bloating, change in bowel habits, change in stool character, chewing difficulty, coffee ground emesis, constipation, cramping, diarrhea, dyspepsia, dysphagia, early satiety, excessive flatus, fecal incontinence, heartburn, hematemesis, hematochezia, hemorrhoids, loose stools, melena, nausea, odynophagia, rectal bleeding, tenesmus, vomiting or weight changes Physical Exam Const alert, oriented x3, no apparent distress and healthy appearing General Appearance: cooperative GI normal to inspection, nondistended, normoactive bowel sounds, soft to palpation, non-tender and non-distended Percussion: normal to percussion Rectal Exam: deferred Lab / Micro Data 09/11/24 05:34 09/11/24 05:34 Labs: Laboratory Results - last 24 hr 09/11/24 05:34: WBC 15.6 H, RBC 2.65 L, Hgb 8.4 L, Hct 24.9 L, MCV 94.0, MCH 31.7, MCHC 33.7, RDW Std Deviation 51.3 H, RDW Coeff of Pavel 14.8 H, Plt Count 181, MPV 9.9, PT 32.1 H, INR 3.0, Sodium 143, Potassium 3.4, Chloride 109 H, Carbon Dioxide 23.0, Anion Gap 11, BUN 59 H, Creatinine 1.55 H, Estim Creat Clear Calc 23.07 L, Est GFR (MDRD) Non-Af 33 L, BUN/Creatinine Ratio 37.9 H, Glucose 98, Calcium 8.0, NT pro BNP II 3273 H Imaging Radiology Impression Chest X-Ray 09/11/24 09:15 IMPRESSION: Large hiatal hernia. Mild bibasilar pleural effusions. Bibasilar opacities may reflect compressive atelectasis, multifocal pneumonia, and/or aspiration. Moderate cardiomegaly. Reading Location: [facility] Assessment & Plan Assessment/Plan (1) Anticoagulated on Coumadin: (2) Anemia: PLAN: 83-year-old with chronic venous stasis and ulcers of the lower extremity anticoagulated on Coumadin for atrial fibrillation with decreasing hemoglobin. Recommend upper endoscopy 09/13/2024. Keep n.p.o. past midnight on 09/12/2024. Charges/Coding Visit Charges Inpatient E&M: 67322 Init Hosp L3
[2024-09-11] MEDS: Raloxifene HCl 60 MG Tablet PO (22:13)
[2024-09-11] MEDS: MELATONIN 3 MG TABLET PO (22:18)
[2024-09-11] MEDS: Gabapentin 100 MG Capsule PO (22:20)
[2024-09-12] VITALS (9 sets, daily range): BP systolic 93–121; BP diastolic 53–64; PULSE 81–98; RESP 16–18; TEMP 36.4–36.9; O2SAT 93–100
[2024-09-12] MEDS: oxyCODONE 5 MG Tablet PO ×3 (02:54→20:00)
[2024-09-12] MEDS: Acetaminophen 325 MG Tablet 650 MG PO ×2 (05:54→21:21)
[2024-09-12] MEDS: Vancomycin Trough/Random Due 1 LAB MC (07:04)
[2024-09-12 07:07] LABS: Hematocrit 22.9 % (37-47); Hemoglobin 7.6 g/dL (12.0-15.0); Mean Corp Hgb Conc 33.2 g/dL (32-36); Mean Corpuscular Hgb 31.4 pg (27.0-32.0); Mean Corpuscular Volume 94.6 fL (81-99); Platelet Count 192 K/mm3 (150-450); RBC Distribution Width SD 52.2 fl (35.1-43.9); Red Blood Count 2.42 M/mm3 (4.2-5.4); White Blood Count 11.7 K/mm3 (4.4-11.0)
[2024-09-12 07:24] LABS: Vancomycin, Random Level 6.7 ug/mL (0.0-15.0)
[2024-09-12 07:31] LABS: Anion Gap 13 (5-15); BUN 42 mg/dL (4-19); Calcium,Total 7.8 mg/dL (7.6-11.0); Carbon Dioxide 22.8 mmol/L (21.0-32.0); Chloride 106 mmol/L (98-108); Creatinine, Serum 1.26 mg/dL (0.70-1.20); EST Glomerular Filtration Rate 43 (>60); Estimated Creatinine Clearance 28.38 ml/min (50-250); Glucose 86 mg/dL (70-99); Potassium 3.2 mmol/L (3.3-5.1); Sodium Level 141 mmol/L (133-145)
[2024-09-12 08:04] LABS: Prothrombin Time (Protime)PT. 31.4 SECONDS (11.7-14.9)
[2024-09-12] MEDS: Potassium Chloride Oral Tablet 20 MEQ 40 MEQ PO (08:23)
[2024-09-12] MEDS: Vancomycin IV 500 MG/100 ML BAG 100 MG IV (08:24)
[2024-09-12] MEDS: Potassium Chloride Oral Tablet 10 MEQ PO ×2 (08:24→17:11)
[2024-09-12] MEDS: 0.9% Saline Lock 10 ML Syringe IV (08:25)
[2024-09-12] MEDS: Pantoprazole Sodium 40 MG in 0.9% Normal Saline (100mL MB+) 100 ML 330 MG IV ×2 (10:14→21:21)
[2024-09-12] MEDS: Piperacil/Tazobactam 3.375 GM in 0.9% Normal Saline (50mL MB+) 50 ML IV ×2 (10:14→21:21)
[2024-09-12] MEDS: Cholecalciferol (VIT D3) 25 MCG TABLET (1,000 UNITS) 50 MCG PO (10:15)
--- NOTE | 2024-09-12 10:40 | PCM.PN.HOSP ---
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 Patient was slightly more pale appearing this morning than previous days but otherwise was sitting up comfortably in bedside chair and in no acute distress. She did continue to appear fatigued. Continues to deny any change in her bowel movements. Did have good urine output with Lasix yesterday. No other new concerns this morning. Objective Data Objective Data Vital Signs: Vital Signs Temp Pulse Resp BP Pulse Ox O2 Del Method O2 Flow Rate 97.6 F L 85 18 105/61 98 Nasal Cannula 2 09/12/24 10:23 09/12/24 10:23 09/12/24 10:23 09/12/24 10:23 09/12/24 10:23 09/12/24 10:23 09/12/24 10:23 Oxygen Flow Rate (L/min) 2 Oxygen Delivery Method Nasal Cannula Weight: 62.324 kg Body Mass Index (BMI) 26.8 Intake & Output: Intake and Output for Last 24 Hours 09/10/24 09/11/24 09/12/24 23:59 23:59 23:59 Intake Total 0 / 2070 175. / 2055. 994.75 / 994.75 Output Total 450 / 450 Balance 1730 / 2070 175. / 2055. 544.75 / 544.75 Lab / Micro Data 09/12/24 05:31 09/12/24 05:31 Labs: Laboratory Results - last 24 hr 09/11/24 05:34: NT pro BNP II 3273 H 09/12/24 05:31: WBC 11.7 H, RBC 2.42 L, Hgb 7.6 L, Hct 22.9 L, MCV 94.6, MCH 31.4, MCHC 33.2, RDW Std Deviation 52.2 H, RDW Coeff of Pavel 15.0 H, Plt Count 192, MPV 10.0, PT 31.4 H, INR 3.0, Sodium 141, Potassium 3.2 L, Chloride 106, Carbon Dioxide 22.8, Anion Gap 13, BUN 42 H, Creatinine 1.26 H, Estim Creat Clear Calc 28.38 L, Est GFR (MDRD) Non-Af 43 L, BUN/Creatinine Ratio 33.0 H, Glucose 86, Calcium 7.8, Random Vancomycin 6.7 Physical Exam Const alert, oriented x3, no apparent distress and average body habitus Constitutional Narrative: Pleasant elderly female, fatigued and somewhat pale appearing but otherwise sitting back comfortably in bed, conversing normally, in no acute distress. General Appearance: cooperative and comfortable HEENT normocephalic, head/scalp atraumatic, hearing grossly normal bilaterally, nasal mucous membranes and turbinates normal and moist oral mucous membranes Eyes PERRL, EOMs intact bilaterally and conjunctivae normal Neck full ROM Chest inspection of chest normal Resp normal respiratory effort and no use of accessory muscles Resp Narrative: Breathing comfortably on 2 L nasal cannula at rest. Decreased breath sounds at bilateral lung bases but otherwise good air movement throughout with no wheezing or crackles noted. Stable. Cardio regular rate, regular rhythm, no murmurs and peripheral pulses 2+ throughout GI normal to inspection, nondistended, normoactive bowel sounds, soft to palpation, non-tender and non-distended Back/Spine normal ROM Extremity Extremity Narrative: Left lower leg with Seven wrap in place. Stable. Psych mental status grossly normal Assessment & Plan Assessment/Plan (1) Cellulitis of leg: (2) RAFAEL (acute kidney injury): PLAN: Plan Patient is an 83-year-old female who presented [facility] ED on 09/10/2024 with worsening left lower extremity pain and swelling. 1. Left lower extremity cellulitis ? Wound care following. Left lower extremity duplex ultrasound in ED negative for DVT. Had cellulitis from mid leg up to the knee with clearish weeping from wound on admission. WBC count 18,000 but patient otherwise afebrile and hemodynamically stable, did not meet sepsis criteria. Leg wrapped with Seven wrap on admission and has been stable. Unable to collect any cultures from wound. Continue to treat with IV vancomycin and Zosyn and monitor closely. 2. RAFAEL, improving ? Creatinine 2.25 on admit, baseline 0.8-0.9. Suspect prerenal etiology in setting of patient taking increased dose of Lasix for lower extremity swelling prior to admission as well as home hydrochlorothiazide. Given 1 L of fluids on admit. Most recent creatinine 1.26 on 09/12. Notably patient did develop hypoxia as noted below concerning for volume overload. Further workup as noted below. Spot dosing with diuresis as able as blood pressures have been borderline low. Continue to monitor BMP and urine output daily. Hold home Lasix and hydrochlorothiazide. 3. Acute on chronic anemia ? GI following. Hemoglobin 8.9 on admit, was 11.5 about 1 month prior to admission. Iron studies with low iron and iron saturation but normal ferritin level. Patient denies any stool changes. However, is high risk for GI bleed given she is on Coumadin for anticoagulation. Most recent hemoglobin 7.6 on 09/12. Continue treatment with IV PPI twice daily. Holding home warfarin for now, monitor daily INR. Per GI, will plan for upper scope tomorrow, n.p.o. at midnight. Continue to monitor CBC daily. 4. Acute hypoxia with concern for new onset heart failure ? Found to be hypoxic requiring 2 L nasal cannula on morning of 09/11. Breathing comfortably on room air at rest, asymptomatic. Chest x-ray showed moderate cardiomegaly with mild bibasilar pleural effusions concerning for heart failure. Follows with cardiology as below, last echo in 2020 was unremarkable. Repeat echo ordered. Given 1 dose of IV Lasix 20 mg on 09/11 with decent urine output. Has had borderline low blood pressures so we will only spot dose diuretics at this time. 5. Borderline hypotension in setting of essential hypertension, paroxysmal A-fib on Coumadin ? Follows with [place] [facility]. In normal sinus rhythm on admit. INR therapeutic at 2.3. Patient has had borderline low blood pressures with bennett in 90s/50s. Suspect GI blood loss and possible new heart failure are contributing to this. Okay to continue home Toprol with hold parameters. Holding home Lasix and hydrochlorothiazide. 6. Hypokalemia ? Potassium 2.9 on admit. Mag and Phos normal. Presume secondary to increased Lasix dosing as above. Replete potassium as needed. 7. Neuropathy ? Continue home gabapentin. DVT prophylaxis: SCDs CODE STATUS: Full code, verified Expected disposition: Home, TBD Total clinical time spent by myself addressing the patient's medical issues, reviewing all the data, and collaborating with patient's care team: 35 minutes. Charges/Coding Visit Charges Inpatient E&M: 43924 Subs Hosp L2
[2024-09-12] MEDS: Gabapentin 100 MG Capsule PO (21:21)
[2024-09-12] MEDS: MELATONIN 3 MG TABLET PO (21:21)
[2024-09-12] MEDS: Raloxifene HCl 60 MG Tablet PO (21:26)
--- NOTE | 2024-09-13 00:09 | NURSING ---
PT NPO for upper scope today.
[2024-09-13] MEDS: oxyCODONE 5 MG Tablet PO ×3 (04:45→21:13)
[2024-09-13 06:58] LABS: Hemoglobin 7.3 g/dL (12.0-15.0); Mean Corp Hgb Conc 33.2 g/dL (32-36); Mean Corpuscular Hgb 30.9 pg (27.0-32.0); Mean Corpuscular Volume 93.2 fL (81-99); Mean Platelet Vol. 9.5 fl (6.2-12.0); Platelet Count 198 K/mm3 (150-450); RBC Distribution Width SD 50.8 fl (35.1-43.9); Red Blood Count 2.36 M/mm3 (4.2-5.4); White Blood Count 10.1 K/mm3 (4.4-11.0)
[2024-09-13 07:19] LABS: Anion Gap 10 (5-15); BUN 24 mg/dL (4-19); BUN/Creat Ratio 26.8 RATIO (10-20); Calcium,Total 7.8 mg/dL (7.6-11.0); Carbon Dioxide 24.4 mmol/L (21.0-32.0); Chloride 105 mmol/L (98-108); Creatinine, Serum 0.89 mg/dL (0.70-1.20); EST Glomerular Filtration Rate 65 (>60); Estimated Creatinine Clearance 40.18 ml/min (50-250); Glucose 94 mg/dL (70-99); Potassium 3.5 mmol/L (3.3-5.1); Sodium Level 139 mmol/L (133-145)
[2024-09-13 07:48] LABS: International Normalized Ratio 3.1; Prothrombin Time (Protime)PT. 32.7 SECONDS (11.7-14.9)
[2024-09-13 08:15] VITALS: BP 115/57; PULSE 87; RESP 18; TEMP 36.8; O2SAT 99
[2024-09-13] MEDS: Vancomycin IV 500 MG/100 ML BAG 100 MG IV (08:19)
[2024-09-13] MEDS: 0.9% Saline Lock 10 ML Syringe IV ×3 (08:20→21:14)
--- NOTE | 2024-09-13 09:07 | WOUNDNOTE ---
wound photo: left lower leg
--- NOTE | 2024-09-13 09:08 | WOUNDNOTE ---
wound photo: left posterior lower leg
--- NOTE | 2024-09-13 09:23 | PN.HOSP_ITS ---
Subjective Subjective Doing well, no issues overnight. Planning for an echocardiogram and an EGD today Objective Data Objective Data Vital Signs: Vital Signs Temp Pulse Resp BP Pulse Ox O2 Del Method O2 Flow Rate 98.3 F 87 18 115/57 L 99 Nasal Cannula 3 09/13/24 08:15 09/13/24 08:15 09/13/24 08:15 09/13/24 08:15 09/13/24 08:15 09/13/24 08:50 09/13/24 08:50 Oxygen Flow Rate (L/min) 3 Oxygen Delivery Method Nasal Cannula Weight: 137 lb 6.4 oz Body Mass Index (BMI) 26.8 Intake & Output: Intake and Output for Last 24 Hours 09/12/24 09/13/24 09/14/24 03:59 03:59 03:59 Intake Total 1715.25 / 1715.25 1985.75 / 1984.75 Output Total 450 / 450 Balance 1715.25 / 1715.25 1535.75 / 1535.75 Lab / Micro Data 09/13/24 06:04 09/13/24 06:04 Labs: Laboratory Results - last 24 hr 09/13/24 06:04: WBC 10.1, RBC 2.36 L, Hgb 7.3 L, Hct 22.0 L, MCV 93.2, MCH 30.9, MCHC 33.2, RDW Std Deviation 50.8 H, RDW Coeff of Pavel 15.0 H, Plt Count 198, MPV 9.5, PT 32.7 H, INR 3.1, Sodium 139, Potassium 3.5, Chloride 105, Carbon Dioxide 24.4, Anion Gap 10, BUN 24 H, Creatinine 0.89, Estim Creat Clear Calc 40.18 L, Est GFR (MDRD) Non-Af 65, BUN/Creatinine Ratio 26.8 H, Glucose 94, Calcium 7.8 Micro: Microbiology 09/10/24 11:40 Blood Culture (Wb) - Left Hand Blood Culture - Preliminary No growth in 48 hours. 09/10/24 10:50 Blood Culture (Wb) - Left Forearm Blood Culture - Preliminary No growth in 48 hours. Physical Exam Narrative General: Alert, Oriented x3, Cooperative, No apparent distress, pale HEENT: Atraumatic, PERRLA, EOMI, Normocephalic Oral: Moist Mucosa Neck: Supple, No JVD Lungs: Diminished, Normal air movement, No rhonchi, No wheeze, No rales Cardiovascular: Regular rate, Regular Rhythm, Normal S1, Normal S2, No murmurs Abdomen: Soft, Non Tender, Non-Distended, No Hepato-splenomegaly Extremities: Edema, Capillary Refill Less than 3 Seconds Skin: Lower extremities wrapped Musculoskeletal: No Tenderness to Palpation of Joints or Extremities Neurological: No focal neurological deficits, Motor Exam 5/5 strength throughout, Sensory exam intact to light touch and pain Psych/Mental Status: Normal Affect, Appropriate, fatigued Assessment & Plan Assessment/Plan (1) Cellulitis of leg: (2) RAFAEL (acute kidney injury): PLAN: Plan 1. Left lower extremity cellulitis ? Wound care following. Left lower extremity duplex ultrasound in ED negative for DVT. Had cellulitis from mid leg up to the knee with clearish weeping from wound on admission. WBC count 18,000 but patient otherwise afebrile and hemodynamically stable, did not meet sepsis criteria. Leg wrapped with Seven wrap on admission and has been stable. Unable to collect any cultures from wound. Continue to treat with IV vancomycin and Zosyn and monitor closely. 09/13/2024: White count is improving continue broad-spectrum antibiotics, wound cultures pending, blood cultures are negative 2. RAFAEL, improving ? Creatinine 2.25 on admit, baseline 0.8-0.9. Suspect prerenal etiology in setting of patient taking increased dose of Lasix for lower extremity swelling prior to admission as well as home hydrochlorothiazide. Given 1 L of fluids on admit. Most recent creatinine 1.26 on 09/12. Notably patient did develop hypoxia as noted below concerning for volume overload. Further workup as noted below. Spot dosing with diuresis as able as blood pressures have been borderline low. Continue to monitor BMP and urine output daily. Hold home Lasix and hydrochlorothiazide. 09/13/2024: RAFAEL is resolved 3. Acute on chronic anemia ? GI following. Hemoglobin 8.9 on admit, was 11.5 about 1 month prior to admission. Iron studies with low iron and iron saturation but normal ferritin level. Patient denies any stool changes. However, is high risk for GI bleed given she is on Coumadin for anticoagulation. Most recent hemoglobin 7.6 on 09/12. Continue treatment with IV PPI twice daily. Holding home warfarin for now, monitor daily INR. Per GI, will plan for upper scope tomorrow, n.p.o. at midnight. Continue to monitor CBC daily. 09/13/2024: Hemoglobin dropped to 7.3 today unfortunate she could not get her EGD so we will plan for tomorrow for evaluation may need to transfuse the family was concerned as we do not screen for people who have had the COVID-vaccine but they understand that if she falls below hemoglobin of 7 she will have to be transfused regardless 4. Acute hypoxia with concern for new onset heart failure ? Found to be hypoxic requiring 2 L nasal cannula on morning of 09/11. Breathing comfortably on room air at rest, asymptomatic. Chest x-ray showed moderate cardiomegaly with mild bibasilar pleural effusions concerning for heart failure. Follows with cardiology as below, last echo in 2020 was unremarkable. Repeat echo ordered. Given 1 dose of IV Lasix 20 mg on 09/11 with decent urine output. Has had borderline low blood pressures so we will only spot dose diuretics at this time. 09/13/2024: Continue with 20 mg of p.o. Lasix, echocardiogram demonstrates an EF of 70% with a PASP of 44 mmHg and mild aortic stenosis with a gradient of 14 mmHg 5. Borderline hypotension in setting of essential hypertension, paroxysmal A- fib on Coumadin ? Follows with [facility]. In normal sinus rhythm on admit. INR therapeutic at 2.3. Patient has had borderline low blood pressures with bennett in 90s/50s. Suspect GI blood loss and possible new heart failure are contributing to this. Okay to continue home Toprol with hold parameters. Holding home Lasix and hydrochlorothiazide. 6. Hypokalemia ? Potassium 2.9 on admit. Mag and Phos normal. Presume secondary to increased Lasix dosing as above. Replete potassium as needed. 7. Neuropathy ? Continue home gabapentin. DVT: SCDs Charges/Coding Visit Charges Inpatient E&M: 34156 Subs Hosp L2
[2024-09-13 10:10] VITALS: BP 121/73; PULSE 92
[2024-09-13] MEDS: Piperacil/Tazobactam 3.375 GM in 0.9% Normal Saline (50mL MB+) 50 ML IV ×2 (10:12→21:14)
[2024-09-13] MEDS: Pantoprazole Sodium 40 MG in 0.9% Normal Saline (100mL MB+) 100 ML 330 MG IV ×2 (10:13→21:14)
[2024-09-13 10:16] VITALS: BP 121/73; PULSE 92
[2024-09-13] MEDS: Metoprolol(XL)Succ 25 MG Tablet PO (10:16)
[2024-09-13 10:39] LABS: M R Staph aureus DNA By PCR Negative (Negative); Probe Check PASS; Specimen Processing Control PASS; Staph aureus DNA By PCR POSITIVE (Negative)
[2024-09-13 13:00] VITALS: O2SAT 100
[2024-09-13 14:39] VITALS: BP 111/59; PULSE 90; RESP 18; TEMP 36.7; O2SAT 98
[2024-09-13] MEDS: Potassium Chloride Oral Tablet 10 MEQ PO (16:46)
[2024-09-13] MEDS: Acetaminophen 325 MG Tablet 650 MG PO (18:55)
[2024-09-13 20:30] VITALS: BP 108/55; PULSE 96; RESP 16; TEMP 36.6; O2SAT 96
[2024-09-13] MEDS: MELATONIN 3 MG TABLET PO (21:13)
[2024-09-13] MEDS: Gabapentin 100 MG Capsule PO (21:13)
[2024-09-13] MEDS: Raloxifene HCl 60 MG Tablet PO (21:14)
[2024-09-13] MEDS: 0.9% Normal Saline (250mL Bag) 250 ML 15 ML IV (21:18)
[2024-09-13 23:00] VITALS: BMI 26.8
[2024-09-14] VITALS (15 sets, daily range): BP systolic 100–134; BP diastolic 51–70; PULSE 83–104; RESP 16–18; TEMP 36.6–37.4; O2SAT 93–99
[2024-09-14 05:08] LABS: Hematocrit 20.8 % (37-47); Hemoglobin 6.9 g/dL (12.0-15.0); Mean Corp Hgb Conc 33.2 g/dL (32-36); Mean Corpuscular Hgb 30.8 pg (27.0-32.0); Mean Corpuscular Volume 92.9 fL (81-99); Mean Platelet Vol. 9.1 fl (6.2-12.0); POSITIVE COUNT YES; POSITIVE MORPHOLOGY YES; Platelet Count 195 K/mm3 (150-450); RBC Distribution Width CV 14.7 % (11.6-14.6); RBC Distribution Width SD 49.8 fl (35.1-43.9); Red Blood Count 2.24 M/mm3 (4.2-5.4); White Blood Count 9.7 K/mm3 (4.4-11.0)
[2024-09-14 05:19] LABS: Differential Indicated MANUAL DIFF
[2024-09-14] MEDS: Piperacil/Tazobactam 3.375 GM in 0.9% Normal Saline (50mL MB+) 50 ML IV ×3 (05:36→23:31)
[2024-09-14 05:43] LABS: Anion Gap 10 (5-15); BUN 18 mg/dL (4-19); BUN/Creat Ratio 23.6 RATIO (10-20); Carbon Dioxide 24.7 mmol/L (21.0-32.0); Chloride 106 mmol/L (98-108); Creatinine, Serum 0.74 mg/dL (0.70-1.20); EST Glomerular Filtration Rate 81 (>60); Glucose 104 mg/dL (70-99); Potassium 3.3 mmol/L (3.3-5.1); Sodium Level 140 mmol/L (133-145)
[2024-09-14] MEDS: oxyCODONE 5 MG Tablet PO (06:10)
[2024-09-14 06:37] LABS: Eosinophil 8 % (0-5); Lymphocyte 24 % (19-41); Metamyelocyte 1 % (0-1); Monocyte 1 % (0-10); Myelocyte 2 % (0-0); Neutrophil-Band 1 % (0-5); Neutrophil-Segmented 63 % (47-70); Total Cells Counted 100 (MANUAL DIFF)
[2024-09-14 06:38] LABS: Anisocytosis 2+; Hypochromasia 2+; Platelet Estimate ADEQUATE (ADEQ); Polychromasia RARE
[2024-09-14 06:39] LABS: Absolute Lymphocyte Count 2.33 X10^3/uL (0.83-4.51); Absolute Neutrophil Count 6.2 X10^3/uL (2.0-7.7)
[2024-09-14 08:16] LABS: Vancomycin, Trough Level 4.4 ug/mL (5.0-15.0)
--- NOTE | 2024-09-14 08:46 | PCM.RX.CS ---
Consult Antibiotic Management Pharmacy has been consulted to manage selected antibiotic: Vancomycin Type of Intervention Type of Consult: Follow-up Suspected Infection Suspected Infection: Skin/Soft tissue Labs Labs: Sodium 140 mmol/L (133-145) 09/14/24 04:58 Potassium 3.3 mmol/L (3.3-5.1) 09/14/24 04:58 Chloride 106 mmol/L (98-108) 09/14/24 04:58 Carbon Dioxide 24.7 mmol/L (21.0-32.0) 09/14/24 04:58 Anion Gap 10 (5-15) 09/14/24 04:58 BUN 18 mg/dL (4-19) 09/14/24 04:58 Creatinine 0.74 mg/dL (0.70-1.20) 09/14/24 04:58 Est GFR (MDRD) Non-Af 81 (>60) 09/14/24 04:58 BUN/Creatinine Ratio 23.6 RATIO (10-20) H 09/14/24 04:58 Glucose 104 mg/dL (70-99) H 09/14/24 04:58 Vancomycin Trough 4.4 ug/mL (5.0-15.0) L 09/14/24 07:36 Random Vancomycin 6.7 ug/mL (0.0-15.0) 09/12/24 05:31 Microbiology Microbiology: Microbiology 09/13/24 08:15 Wound - Leg, Left Gram Stain - Final 09/13/24 08:15 Wound - Leg, Left Wound Culture - Preliminary Gram negative brandt 09/10/24 11:40 Blood Culture (Wb) - Left Hand Blood Culture - Preliminary No growth in 48 hours. 09/10/24 10:50 Blood Culture (Wb) - Left Forearm Blood Culture - Preliminary No growth in 48 hours. Estimated Creatinine Clearance Estimated Creatinine Clearance: 44.7 Goal Trough Goal Trough: 15-20 mcg/mL Pharmacy Plan for Drug Dosing Pharmacy Plan for Drug Dosing: VANCOMYCIN LEVEL RECEIVED Current Vancomycin Dose: 500mg Q24H Number of Doses Received: 500mg x2 Vancomycin Level: 4.4 Hours Since Last Dose: 23.5 Renal Function: sCr 0.74 Renal Function Trend: improved Vancomycin Plan/Comments: Increase Vancomycin dosing regimen to 500mg Q12H Pending Level: 09/15/24 @ 20:30 Pharmacy Service will continue to monitor and adjust dosing as required. Follow-Up Labs Follow-Up Labs: Trough: Vancomycin (09/15/24 @ 20:30)
--- NOTE | 2024-09-14 09:37 | PN.HOSP_ITS ---
Subjective Subjective Unfortunately EGD could not be done yesterday so hopefully will be done today. She did drop to 6.9 she will be transfused 1 unit Objective Data Objective Data Vital Signs: Vital Signs Temp Pulse Resp BP Pulse Ox O2 Del Method O2 Flow Rate 98.2 F 90 18 113/55 L 93 Room Air 2 09/14/24 08:12 09/14/24 08:12 09/14/24 08:12 09/14/24 08:12 09/14/24 08:12 09/14/24 08:12 09/14/24 02:30 FiO2 98 09/13/24 14:39 Oxygen Flow Rate (L/min) 2 Oxygen Delivery Method Room Air Weight: 137 lb 6.4 oz Body Mass Index (BMI) 26.8 Intake & Output: Intake and Output for Last 24 Hours 09/13/24 09/14/24 09/15/24 03:59 03:59 03:59 Intake Total 1985.75 / 1985.75 401 / 401 Output Total 450 / 450 Balance 1535.75 / 1535.75 401 / 401 Lab / Micro Data 09/14/24 04:58 09/14/24 04:58 Labs: Laboratory Results - last 24 hr 09/13/24 08:15: S.aureus Protein A PCR POSITIVE H, MRSA (PCR) Negative 09/14/24 04:58: WBC 9.7, RBC 2.24 L, Hgb 6.9 L, Hct 20.8 L, MCV 92.9, MCH 30.8, MCHC 33.2, RDW Std Deviation 49.8 H, RDW Coeff of Pavel 14.7 H, Plt Count 195, MPV 9.1, Neut % (Auto) Not Reportable, Absolute Neuts (auto) 6.2, Absolute Lymphs (auto) 2.33, Total Counted 100, Neutrophils % (Manual) 63, Band Neutrophils % 1, Lymphocytes % (Manual) 24, Monocytes % (Manual) 1, Eosinophils % (Manual) 8 H, Metamyelocytes % 1, Myelocytes % 2 H, Diff Path Review May foll, Platelet Estimate ADEQUATE, Polychromasia RARE, Hypochromasia 2+, Anisocytosis 2+, Sodium 140, Potassium 3.3, Chloride 106, Carbon Dioxide 24.7, Anion Gap 10, BUN 18, Creatinine 0.74, Estim Creat Clear Calc 44.70 L, Est GFR (MDRD) Non-Af 81, B UN/Creatinine Ratio 23.6 H, Glucose 104 H, Calcium 8.0 09/14/24 07:36: Vancomycin Trough 4.4 L, Blood Type O NEGATIVE, Antibody Screen NEGATIVE, Crossmatch See Detail Micro: Microbiology 09/13/24 08:15 Wound - Leg, Left Gram Stain - Final 09/13/24 08:15 Wound - Leg, Left Wound Culture - Preliminary Gram negative brandt 09/10/24 11:40 Blood Culture (Wb) - Left Hand Blood Culture - Preliminary No growth in 48 hours. 09/10/24 10:50 Blood Culture (Wb) - Left Forearm Blood Culture - Preliminary No growth in 48 hours. Radiography Diagnostic Testing: Radiology Impression Echocardiogram 09/11/24 11:28 Interpretation Summary Normal LV size. Left ventricular systolic function is normal. No regional wall motion abnormalities noted. Mean aortic valve gradient 14 mmHg. Mild (1+) aortic valve insufficiency. The left ventricular ejection fraction is 70 %. Pulmonary artery systolic pressure is 44 mmHg. Ordering Physician: Hi Jacobson Referring Physician: Hi Jacobson Performed By: Manasa Dodd RDCS Physical Exam Narrative General: Alert, Oriented x3, Cooperative, No apparent distress, pale HEENT: Atraumatic, PERRLA, EOMI, Normocephalic Oral: Moist Mucosa Neck: Supple, No JVD Lungs: Diminished, Normal air movement, No rhonchi, No wheeze, No rales Cardiovascular: Regular rate, Regular Rhythm, Normal S1, Normal S2, No murmurs Abdomen: Soft, Non Tender, Non-Distended, No Hepato-splenomegaly Extremities: Edema, Capillary Refill Less than 3 Seconds Skin: Lower extremities wrapped Musculoskeletal: No Tenderness to Palpation of Joints or Extremities Neurological: No focal neurological deficits, Motor Exam 5/5 strength throughout, Sensory exam intact to light touch and pain Psych/Mental Status: Normal Affect, Appropriate, fatigued Assessment & Plan Assessment/Plan (1) Cellulitis of leg: (2) RAFAEL (acute kidney injury): PLAN: Plan 1. Left lower extremity cellulitis ? Wound care following. Left lower extremity duplex ultrasound in ED negative for DVT. Had cellulitis from mid leg up to the knee with clearish weeping from wound on admission. WBC count 18,000 but patient otherwise afebrile and hemodynamically stable, did not meet sepsis criteria. Leg wrapped with Seven wrap on admission and has been stable. Unable to collect any cultures from wound. Continue to treat with IV vancomycin and Zosyn and monitor closely. 09/13/2024: White count is improving continue broad-spectrum antibiotics, wound cultures pending, blood cultures are negative 09/14/2024: Wound culture with gram-negative brandt, will await for finalized cultures prior to making antibiotic decisions 2. RAFAEL, improving ? Creatinine 2.25 on admit, baseline 0.8-0.9. Suspect prerenal etiology in setting of patient taking increased dose of Lasix for lower extremity swelling prior to admission as well as home hydrochlorothiazide. Given 1 L of fluids on admit. Most recent creatinine 1.26 on 09/12. Notably patient did develop hypoxia as noted below concerning for volume overload. Further workup as noted below. Spot dosing with diuresis as able as blood pressures have been borderline low. Continue to monitor BMP and urine output daily. Hold home Lasix and hydrochlorothiazide. 09/13/2024: RAFAEL is resolved 3. Acute on chronic anemia ? GI following. Hemoglobin 8.9 on admit, was 11.5 about 1 month prior to admission. Iron studies with low iron and iron saturation but normal ferritin level. Patient denies any stool changes. However, is high risk for GI bleed given she is on Coumadin for anticoagulation. Most recent hemoglobin 7.6 on 09/12. Continue treatment with IV PPI twice daily. Holding home warfarin for now, monitor daily INR. Per GI, will plan for upper scope tomorrow, n.p.o. at midnight. Continue to monitor CBC daily. 09/13/2024: Hemoglobin dropped to 7.3 today unfortunate she could not get her EGD so we will plan for tomorrow for evaluation may need to transfuse the family was concerned as we do not screen for people who have had the COVID-vaccine but they understand that if she falls below hemoglobin of 7 she will have to be transfused regardless 09/14/2024: Hemoglobin dropped to 6.9, will transfuse 1 unit 4. Acute hypoxia with concern for new onset heart failure ? Found to be hypoxic requiring 2 L nasal cannula on morning of 09/11. Breathing comfortably on room air at rest, asymptomatic. Chest x-ray showed moderate cardiomegaly with mild bibasilar pleural effusions concerning for heart failure. Follows with cardiology as below, last echo in 2020 was unremarkable. Repeat echo ordered. Given 1 dose of IV Lasix 20 mg on 09/11 with decent urine output. Has had borderline low blood pressures so we will only spot dose diuretics at this time. 09/13/2024: Continue with 20 mg of p.o. Lasix, echocardiogram demonstrates an EF of 70% with a PASP of 44 mmHg and mild aortic stenosis with a gradient of 14 mmHg 5. Borderline hypotension in setting of essential hypertension, paroxysmal A- fib on Coumadin ? Follows with [facility]. In normal sinus rhythm on admit. INR therapeutic at 2.3. Patient has had borderline low blood pressures with bennett in 90s/50s. Suspect GI blood loss and possible new heart failure are contributing to this. Okay to continue home Toprol with hold parameters. Holding home Lasix and hydrochlorothiazide. 6. Hypokalemia ? Potassium 2.9 on admit. Mag and Phos normal. Presume secondary to increased Lasix dosing as above. Replete potassium as needed. 7. Neuropathy ? Continue home gabapentin. DVT: SCDs Charges/Coding Visit Charges Inpatient E&M: 81470 Subs Hosp L2
[2024-09-14] MEDS: Vancomycin IV 500 MG/100 ML BAG 100 MG IV ×2 (09:42→22:05)
[2024-09-14] MEDS: 0.9% Saline Lock 10 ML Syringe IV ×2 (09:45→17:12)
[2024-09-14 10:02] LABS: International Normalized Ratio 2.8; Prothrombin Time (Protime)PT. 30.2 SECONDS (11.7-14.9)
[2024-09-14 10:03] LABS: Partial Thromboplast Time 64.8 Seconds (24.1-36.2)
[2024-09-14] MEDS: Metoprolol(XL)Succ 25 MG Tablet PO (10:46)
--- NOTE | 2024-09-14 11:52 | NURSING ---
diane ward charge updated as requested by dr. loera regarding family concerns.
[2024-09-14] MEDS: Pantoprazole Sodium 40 MG in 0.9% Normal Saline (100mL MB+) 100 ML 330 MG IV ×2 (11:54→22:13)
--- NOTE | 2024-09-14 12:56 | NURSING ---
Patient off unit to endo. Blood running. RN from ENDO with patient on the way down.
--- NOTE | 2024-09-14 13:16 | PCM.PN.BLA ---
Progress Note Patient has been NPO for upper endoscopy. Physical Exam Const alert, oriented x3, no apparent distress and healthy appearing General Appearance: cooperative GI normal to inspection, nondistended, normoactive bowel sounds, soft to palpation, non-tender and non-distended Percussion: normal to percussion Rectal Exam: deferred Assessment & Plan Assessment/Plan (1) Anticoagulated on Coumadin: (2) Anemia: PLAN: 83-year-old with chronic venous stasis and ulcers of the lower extremity anticoagulated on Coumadin for atrial fibrillation with decreasing hemoglobin. Recommend upper endoscopy 09/13/2024. Keep n.p.o. past midnight on 09/12/2024. PLAN: Plan Patient will have upper endoscopy to evaluate upper GI tract for signs and symptoms of acute or chronic GI blood loss. She was explained alternatives, risk and benefits including withstanding bleeding, infection, subsequent perforation, need for emergent surgery . She have an ASA of 3. Visit Charges Inpatient E&M: 39071 Subs Hosp L2
--- NOTE | 2024-09-14 13:20 | PCM.PRE.AN2 ---
ASA Classification* ASA Classification ASA Classification: 3 (paroxysmal Afib on coumadin, held; anemic, RAFAEL, acute hypoxia s/p lasix, ) Assessment & Plan Anesthesia* Anesthesia Assessment Anesthesia Assessment: Discussed sedation and/or anesthesia options, risks, benefits, and alternatives with patient/parents/legal guardian/POA. Questions invited. The patient/parents/legal guardian/POA seems to understand and agrees to proceed with anesthesia plan. Reviewed the physical assessment, medical history, allergy history and patient home medications list prior to surgery/procedure/anesthetic and documented any changes. Performed airway and anesthesia risk assessments. Anesthesia Type Anesthesia Type: General Anesthesia Focused Assessment* Temperature: 99.4 F Pulse Rate: 92 Blood Pressure: 133/66 Respiratory Rate: 16 Pulse Ox: 99 Oxygen Flow Rate (L/min): 2 Fraction of Inspired Oxygen (FIO2): 98 Airway Assessment Mouth opens: >3 cm Mallampati Score: II Teeth Condition: Intact Neck Range of motion (ROM): Full ROM Labs Anesthesia Preop lab: CBC WBC 9.7 K/mm3 (4.4-11.0) 09/14/24 04:58 09/14/24 RBC 2.24 M/mm3 (4.2-5.4) L 09/14/24 04:58 09/14/24 Hgb 6.9 g/dL (12.0-15.0) L 09/14/24 04:58 09/14/24 Hct 20.8 % (37-47) L 09/14/24 04:58 09/14/24 Plt Count 195 K/mm3 (150-450) 09/14/24 04:58 09/14/24 CHEMISTRY Potassium 3.3 mmol/L (3.3-5.1) 09/14/24 04:58 09/14/24 Sodium 140 mmol/L (133-145) 09/14/24 04:58 09/14/24 Magnesium 1.8 mg/dL (1.5-2.2) 09/10/24 11:13 09/10/24 Phosphorus 2.7 mg/dL (2.7-4.5) 09/10/24 11:13 09/10/24 BUN 18 mg/dL (4-19) 09/14/24 04:58 09/14/24 Creatinine 0.74 mg/dL (0.70-1.20) 09/14/24 04:58 09/14/24 Glucose 104 mg/dL (70-99) H 09/14/24 04:58 09/14/24 TSH 2.730 uIU/mL (0.300-4.200) 08/17/24 09:25 08/17/24 COAG PT 30.2 SECONDS (11.7-14.9) H 09/14/24 09:43 09/14/24 Pre-Assessment Diagnosis/Proposed Procedure Planned Operative Procedure(s): EGD Anesthesia History Anesthesia History - cardio clinician: Anesthesia History - cardio clinician Hx Hospitalization Any Problems With Anesthesia No 09/14/24 02:53 Cholinesterase deficiency No 09/14/24 02:53 You/Your Family Experience No 09/14/24 02:53 fever (hyperthermia) with Relationship Recent Exposure to Contagious No 09/14/24 02:53 Disease Does patient have nerve No 09/14/24 02:53 stimulator Patient instructed to have No 09/14/24 02:53 device shut off --Does patient have Pacemaker No 09/13/24 23:00 or ICD? When Was Last Pacemaker Check QUESTION #4 FULL TEXT: You/Your Family Experience fever (hyperthermia) with Anesthesia Last Oral Intake Last Oral intake: Last Oral Intake NPO since 00:00 09/13/24 23:00 Meds taken in AM with sips of Yes 09/13/24 23:00 water? Meds patient instructed to oxy 09/13/24 23:00 take am of surgery PONV PONV - cardio clinician: PONV - cardio clinician Female HX of Motion Sickness HX of N/V After Surgery Non-Smoker Duration of Surgery greater than 60 minutes Number of Risk Factors PONV Score Height & Weight Height & Weight: Anesthesia: Height & Weight Height 5 ft 09/13/24 23:00 Weight: 62.324 kg 09/13/24 23:00 Body Mass Index (BMI) 26.8 09/13/24 23:00 Respiratory Assessment Respiratory Assessment - cardio clinician: Respiratory Tract Infection Hx - cardio clinician Hx Respiratory Tract Infection No 09/14/24 02:53 STOP Sleep Apnea STOP Sleep Apnea - cardio clinician: STOP Sleep Apnea - cardio clinician Hx Hypertension No 09/11/24 13:22 Hx Sleep Apnea No 09/10/24 15:55 CPAP BIPAP Do you snore loudly (louder No 09/10/24 15:55 than talking or can be heard Do you often feel tired/ No 09/10/24 15:55 fatigued/ sleepy during daytime? Has anyone observed you stop No 09/10/24 15:55 breathing during sleep? STOP Results Negative 09/10/24 15:55 QUESTION #5 FULL TEXT : Do you snore loudly (louder than talking or can be heard through closed doors)? 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 Specify any problems Hx of Preganancy in last 3 No 09/10/24 15:55 Months Nurse Filling Out Transfusion KMESSENGE 09/10/24 15:55 & Questions: Date: 09/10/24 09/10/24 15:55 Time: 15:56 09/10/24 15:55 Patient unable to answer at this time (ie. confused, unrespo /Reproduction History /Reproductive History - cardio clinician: /Reproductive Hx- cardio clinician Hx Now No 09/14/24 02:53 Gestational Age (in weeks): EDC: Hx Hx Para Hx Section SAB No 09/14/24 02:53 Active Medications Active Medications: Current Medications Generic Name Dose Route Start Last Admin Trade Name Freq PRN Reason Stop Dose Admin Acetaminophen 650 mg 09/10/24 15:46 09/13/24 18:55 Acetaminophen 325 Mg Tablet PO 650 mg Q6H PRN PRN Administration Pain 1-10 Or Fever>100.7 Cholecalciferol 50 mcg 09/11/24 10:00 09/13/24 10:19 Cholecalciferol (Vit D3) 25 Mcg Tablet (1,000 Units) PO Not Given DAILY ALPESH Furosemide 20 mg 09/13/24 10:00 09/14/24 10:36 Furosemide 20 Mg Tablet PO Not Given DAILY ALPESH Protocol Gabapentin 100 mg 09/10/24 22:00 09/13/24 21:13 Gabapentin 100 Mg Capsule PO 100 mg QHS ALPESH Administration Vancomycin IV-PHARMACY TO DOSE 500 mls @ 250 mls/hr 09/10/24 15:46 1 each/ Sodium Chloride IV PRN PRN Rx to Dose Protocol Sodium Chloride 250 mls @ 15 mls/hr 09/10/24 15:48 09/14/24 09:42 IV 15 mls/hr .[id number] PRN Infusion Saline Flush Sodium Chloride 250 mls @ 15 mls/hr 09/10/24 15:48 09/12/24 10:21 IV Infused .[id number] PRN Infusion Additional IVPB Infusion Pantoprazole Sodium 40 mg/ 100 mls @ 330 mls/hr 09/11/24 12:00 09/14/24 12:13 Sodium Chloride IV Infused Q12 ALPESH Infusion Piperacillin Sod/Tazobactam 50 mls @ 12.5 mls/hr 09/13/24 22:00 09/14/24 09:36 Sod 3.375 gm/ Sodium Chloride IV Infused Q8 ALPESH Infusion Vancomycin HCl 500 mg in 100 mls @ 100 mls/hr 09/14/24 09:00 09/14/24 10:42 IV Infused Q12H ALPESH Infusion Sodium Chloride 500 mls @ 15 mls/hr 09/14/24 09:47 IV PRN PRN Blood Transfusion Melatonin 3 mg 09/10/24 15:46 09/13/24 21:13 Melatonin 3 Mg Tablet PO 3 mg QHS PRN PRN Administration INSOMNIA Metoprolol Succinate 25 mg 09/11/24 10:00 09/14/24 10:46 Metoprolol(Xl)Succ 25 Mg Tablet PO 25 mg DAILY ALPESH Administration Protocol Ondansetron HCl 4 mg 09/10/24 15:46 Ondansetron 4 Mg/2 Ml Vial IV Q8H PRN PRN NAUSEA/VOMITING Oxycodone HCl 5 mg 09/11/24 20:03 09/14/24 06:10 Oxycodone 5 Mg Tablet PO 5 mg Q6H PRN PRN Administration Pain Score 6-10 or Pre PT/OT Potassium Chloride 10 meq 09/10/24 17:00 09/14/24 08:27 Potassium Chloride Oral Tablet 10 Meq PO Not Given BIDCM [facility] Raloxifene HCl 60 mg 09/11/24 21:00 09/13/24 21:14 Raloxifene Hcl 60 Mg Tablet PO 60 mg QPM [facility] Administration Sodium Chloride 10 - 40 ml 09/10/24 15:48 09/14/24 09:45 0.9% Saline Lock 10 Ml Syringe IV 10 ml UD PRN Administration SALINE FLUSH Throat Lozenges 1 lozenge 09/12/24 11:26 Benzocaine/Menthol 1 Lozenge MUCOUS MEM Q2H PRN PRN SORE THROAT Vancomycin Protocol 1 lab 09/14/24 19:30 Vancomycin Trough/Random Due MC 09/14/24 21:30 DAILY [facility] Warfarin Sodium 2 mg 09/11/24 17:00 Jantoven 2 Mg Tablet PO [id number] [facility] Warfarin Sodium 1 mg 09/10/24 17:00 09/10/24 16:34 Warfarin 1 Mg Tablet PO 1 mg [id number] [facility] Administration PFSH Medical History Fatigue Grade I diastolic dysfunction Venous incompetence Secondary pulmonary arterial hypertension Non-rheumatic tricuspid valve insufficiency Paroxysmal atrial fibrillation Paroxysmal supraventricular tachycardia Essential hypertension Vitamin D deficiency Family history of colon cancer History of colonic polyps Scoliosis Diverticulosis Hiatal hernia Lipodermatosclerosis Hyperpigmentation of skin Venous hypertension, chronic, with ulcer Chronic venous insufficiency Venous ulcer of left leg Leg edema, left Edema of left lower leg due to peripheral venous insufficiency 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 Home Medications ?Medication ?Instructions ?Recorded ?Last Taken ?Type coenzyme Q10 200 mg/gram oral 200 mg PO DAILY 10/13/20 09/10/24 History powder (H2Q CoQ10) metoprolol succinate 25 mg 25 mg PO DAILY 10/13/20 09/10/24 History tablet,extended release 24 hr raloxifene 60 mg tablet (Evista) 60 mg PO DAILY 10/13/20 09/10/24 History cholecalciferol (vitamin D3) 25 2,000 unit PO DAILY 01/18/21 09/10/24 History mcg (1,000 unit) tablet vitamin E mixed 400 unit tablet 400 unit PO DAILY 01/18/21 09/10/24 History gabapentin 100 mg capsule 100 mg PO QHS 07/12/21 09/09/24 History potassium chloride 10 mEq 10 meq PO BID 07/12/21 09/10/24 History tablet,extended release mv-mn-folic 200 mcg-vit K 15 1 cap PO DAILY 08/06/22 09/10/24 History mcg-lutein 5 mg-zeaxanthin 1 mg capsule (PreserVision AREDS 2 Plus Multivit) [id number]-[id number] 333 mg-133 0.5 tab PO BID 09/10/24 09/10/24 History mg-5 mg tablet furosemide 20 mg tablet (Lasix) 20 mg PO DAILY 09/10/24 09/10/24 History hydrochlorothiazide 12.5 mg tablet 12.5 mg PO DAILY 09/10/24 09/10/24 History warfarin 1 mg tablet (Jantoven) 1 mg PO MOFR 09/10/24 09/10/24 History warfarin 2 mg tablet (Jantoven) 2 mg PO SUTUWETHSA 09/10/24 09/09/24 History Allergy/AdvReac Type Severity Reaction Status Date / Time No Known Allergies Allergy Verified 09/10/24 10:30 Family History Mother Heart disease Father Colon cancer Brother Asthma Alzheimers disease Surgical History History of loop electrosurgical excision procedure (LEEP) of cervix H/O tubal ligation History of cholecystectomy Social History Smoking Status: Never smoker alcohol intake: never substance use type: does not use caffeine: Yes Type: carbonated beverages and coffee Review of Systems (Anesthesia) ROS Narrative System reviewed and no additional complaints, except as documented.
--- NOTE | 2024-09-14 13:59 | OP.EGD_ITS ---
Patient Name: Ariana Spencer Procedure Date: 09/14/2024 1:28 PM Date of : 1940 Age: 83 Procedure: Upper GI endoscopy Indications: Epigastric abdominal pain, Iron deficiency anemia, Melena, Occult blood in stool, Recent gastrointestinal bleeding, Suspected upper gastrointestinal bleeding Providers: Tyshawn Bravo DO Referring MD: Hi Jacobson Do Medicines: Monitored Anesthesia Care Patient Profile: This is an 83 year old female. Refer to note in patient chart for documentation of history and physical. Patient has symptoms of acute epigastric abdominal pain. Complications: No immediate complications. Procedure: Pre-Anesthesia Assessment: - Prior to the procedure, a History and Physical was performed, and patient medications and allergies were reviewed. The patient is competent. The risks and benefits of the procedure and the sedation options and risks were discussed with the patient. All questions were answered and informed consent was obtained. Patient identification and proposed procedure were verified by the physician in the pre-procedure area. Mental Status Examination: alert and oriented. Airway Examination: normal oropharyngeal airway and neck mobility. Respiratory Examination: clear to auscultation. CV Examination: normal. Prophylactic Antibiotics: The patient does not require prophylactic antibiotics. Prior Anticoagulants: The patient has taken no anticoagulant or antiplatelet agents except for NSAID medication. ASA Grade Assessment: II - A patient with mild systemic disease. After reviewing the risks and benefits, the patient was deemed in satisfactory condition to undergo the procedure. The anesthesia plan was to use monitored anesthesia care (MAC). Immediately prior to administration of medications, the patient was re-assessed for adequacy to receive sedatives. The heart rate, respiratory rate, oxygen saturations, blood pressure, adequacy of pulmonary ventilation, and response to care were monitored throughout the procedure. The physical status of the patient was re-assessed after the procedure. After obtaining informed consent, the endoscope was passed under direct vision. Throughout the procedure, the patient's blood pressure, pulse, and oxygen saturations were monitored continuously. The Endoscope was introduced through the mouth, and advanced to the fourth part of the duodenum. Small bowel enteroscopy was deemed necessary. The upper GI endoscopy was accomplished without difficulty. The patient tolerated the procedure well. Scope In: 1:35:07 PM Scope Out: 1:52:41 PM Total Procedure Duration Time 0 hours 17 minutes 34 seconds Findings: The examined esophagus was grossly tortuous. A large hiatal hernia was present. Many oozing cratered gastric ulcers with pigmented material were found on the lesser curvature of the stomach, in the prepyloric region of the stomach and at the pylorus. The largest lesion was 12 mm in largest dimension. Coagulation for hemostasis using heater probe was successful. For hemostasis, two hemostatic clips were successfully placed. Clip light cleaner: elicit. There was no bleeding at the end of the procedure. A few 5 mm angiodysplastic lesions without bleeding were found in the second portion of the duodenum and in the third portion of the duodenum. Coagulation for destruction of remaining portion of lesion using argon plasma at 0.3 liters/minute and 20 rice was successful. Estimated blood loss was minimal. Impression: - Tortuous esophagus. - Large hiatal hernia. - Oozing gastric ulcers with pigmented material. Treated with a heater probe. Clips were placed. Clip light cleaner: [place] [employer]. 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 Treated with argon plasma coagulation (APC). - No specimens collected. Recommendation: - [facility] for [facility] care. - Clear liquid diet. - Continue present medications. Procedure Code(s): --- Professional --- 68739, Small intestinal endoscopy, enteroscopy beyond second portion of duodenum, not including ileum; with ablation of tumor(s), polyp(s), or other lesion(s) not amenable to removal by hot biopsy forceps, bipolar cautery or snare technique 24003, 59,51, Small intestinal endoscopy, enteroscopy beyond second portion of duodenum, not including ileum; with control of bleeding (eg, injection, bipolar cautery, unipolar cautery, laser, heater probe, stapler, plasma draw frame operator) CPT copyright 2021 [employer] [employer]. All rights reserved. The codes documented in this report are preliminary and upon senior lead project manager review may be revised to meet current compliance requirements. Tyshawn Bravo DO 09/14/2024 1:59:08 PM This report has been signed electronically. Number of Addenda: 0 Note Initiated On: 09/14/2024 1:28 PM
--- NOTE | 2024-09-14 13:59 | OP.CCLET_ITS ---
09/14/2024 Marguerite Kumar City Solicitor, City Solicitor-c Re : Upper GI endoscopy procedure for Ariana Spencer Dear Stacy This procedure was performed on Saturday, September 14, 2024. My impressions and recommendations are as follows: Impressions : - Tortuous esophagus. - Large hiatal hernia. - Oozing gastric ulcers with pigmented material. Treated with a heater probe. Clips were placed. Clip insulator technician: Cennox. 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 Treated with argon plasma coagulation (APC). - No specimens collected. Recommendations : - [facility]. - Clear liquid diet. - Continue present medications. My findings are described in the full procedure note, which is enclosed. If I can be of further assistance, please feel free to contact me at . Sincerely, Tyshawn Bravo, 09/14/2024 1:59:08 PM This report has been signed electronically.
--- NOTE | 2024-09-14 14:06 | PCM.POST.ANE ---
Anesthesia: Postop Eval I Current Vital Signs Temperature: 98.4 F Pulse Rate: 84 Blood Pressure: 100/57 Respiratory Rate: 16 Pulse Ox: 97 Oxygen Delivery Method: Room Air Assessment Airway patent: Yes Spontaneous unlabored respirations: Yes Mental status: Asleep nausea: No Vomiting: No Anesthesia Complication: No Fluid Hydration Crystalloid volume administer (ml): 200 Total IV fluid infused: 200 Progress Note Anesthesia document: Postop Eval 1 completed: Yes
--- NOTE | 2024-09-14 14:32 | CASEMGMT ---
KINGA CM to pt room to f/u on therapy, pt is off of the floor at this time.
[2024-09-14] MEDS: Lactated Ringers 1,000 ML 150 ML IV ×2 (17:07→23:30)
[2024-09-14] MEDS: proCHLORPERazine 10 MG/2 ML Vial IV (17:12)
--- NOTE | 2024-09-14 18:40 | PCM.POSTANE2 ---
Anesthesia Postop Eval I Sum Postop Eval Completion status Anesthesia document: Postop Eval 1 completed: Yes Anesthesia Postop Eval I Summary Anesthesia Postop Eval I Summary: Anesthesia Postop Eval I: Assessment Summary Airway patent Yes 09/14/24 14:07 [email or web address] Spontaneous unlabored Yes 09/14/24 14:07 [email or web address] respirations Mental status Asleep 09/14/24 14:07 [email or web address] nausea No 09/14/24 14:07 [email or web address] Vomiting No 09/14/24 14:07 [email or web address] Anesthesia Postop Eval I: Fluid Summary Crystalloid volume administer 200 09/14/24 14:07 [email or web address] (ml) Colloids volume administered ( ml) Blood Product volume administered (ml) Total IV fluid infused 200 09/14/24 14:07 [email or web address] Anesthesia Postop Eval I: Summary Notes Anesthesia Complication No 09/14/24 14:07 [email or web address] Anesthesia Complication Comment: Post-operative progress note Anesthesia: Postop Eval II Evaluation Mental status: Awake Pain Level: 0 nausea: No Vomiting: No Complications Anesthesia Complication: No
[2024-09-14] MEDS: Raloxifene HCl 60 MG Tablet PO (22:10)
[2024-09-14] MEDS: Gabapentin 100 MG Capsule PO (22:11)
[2024-09-15] MEDS: 0.9% Saline Lock 10 ML Syringe IV ×2 (03:11→05:41)
[2024-09-15 03:16] VITALS: BP 114/64; PULSE 90; RESP 16; TEMP 36.9; O2SAT 94
[2024-09-15] MEDS: oxyCODONE 5 MG Tablet PO ×2 (03:25→15:36)
[2024-09-15] MEDS: Acetaminophen 325 MG Tablet 650 MG PO (03:25)
[2024-09-15 05:09] LABS: Hematocrit 24.6 % (37-47); Hemoglobin 8.4 g/dL (12.0-15.0); Mean Corp Hgb Conc 34.1 g/dL (32-36); Mean Corpuscular Hgb 31.5 pg (27.0-32.0); Mean Corpuscular Volume 92.1 fL (81-99); Mean Platelet Vol. 9.1 fl (6.2-12.0); POSITIVE COUNT YES; POSITIVE MORPHOLOGY YES; Platelet Count 243 K/mm3 (150-450); RBC Distribution Width CV 15.5 % (11.6-14.6); RBC Distribution Width SD 51.7 fl (35.1-43.9); Red Blood Count 2.67 M/mm3 (4.2-5.4); White Blood Count 11.1 K/mm3 (4.4-11.0)
[2024-09-15 05:11] LABS: Differential Indicated MANUAL DIFF
[2024-09-15] MEDS: Piperacil/Tazobactam 3.375 GM in 0.9% Normal Saline (50mL MB+) 50 ML IV (05:33)
[2024-09-15 05:36] LABS: Anion Gap 9 (5-15); BUN 14 mg/dL (4-19); Calcium,Total 7.8 mg/dL (7.6-11.0); Carbon Dioxide 23.1 mmol/L (21.0-32.0); Chloride 104 mmol/L (98-108); Creatinine, Serum 0.66 mg/dL (0.70-1.20); EST Glomerular Filtration Rate 87 (>60); Glucose 105 mg/dL (70-99); Magnesium 1.7 mg/dL (1.5-2.2); Phosphorus 2.1 mg/dL (2.7-4.5); Potassium 3.2 mmol/L (3.3-5.1); Sodium Level 136 mmol/L (133-145)
[2024-09-15] MEDS: Lactated Ringers 1,000 ML 150 ML IV (05:41)
[2024-09-15 06:00] LABS: Basophil 2 % (0-1); Eosinophil 8 % (0-5); Lymphocyte 16 % (19-41); Metamyelocyte 1 % (0-1); Monocyte 2 % (0-10); Myelocyte 3 % (0-0); Neutrophil-Band 3 % (0-5); Neutrophil-Segmented 65 % (47-70); Total Cells Counted 100 (MANUAL DIFF)
[2024-09-15 06:01] LABS: Absolute Lymphocyte Count 1.78 X10^3/uL (0.83-4.51); Absolute Neutrophil Count 7.5 X10^3/uL (2.0-7.7); Platelet Estimate ADEQUATE (ADEQ); Red Cell Morphology NORM C+C NORMAL (NORM C&C)
[2024-09-15 06:56] VITALS: O2SAT 94
[2024-09-15] MEDS: Magnesium Sulfate 2 GM in Dextrose 5%-Water (100mL Bag) 100 ML IV (08:25)
[2024-09-15 08:31] VITALS: BP 117/67; PULSE 88; RESP 16; TEMP 36.4; O2SAT 95
[2024-09-15] MEDS: Potassium Chloride Oral Tablet 10 MEQ PO (08:33)
--- NOTE | 2024-09-15 09:27 | PCM.DC ---
Discharge Instructions Diet Discharge Diet: Low fat / Low cholesterol DC O2, CPAP, BIPAP needs Home O2 Discharge instructions: No Dressing / Incision Discharge Activity: Return to Normal Activity Dressing / Incision Call your doctor if you observe: Fever of 101 or Higher, Shortness of breath, Dizziness, Fainting spells, Swelling in the ankles, Chest pain and Increased palpitations (irregular heartbeat) Follow Up Care Test Results: Test results from this visit will be discussed in further detail at your follow-up appointment, if applicable. Discharge Plan Admission Admit Date/Time: 09/10/24 12:55 Attending Provider: Edgar Ramirez Primary Care Provider: Marguerite Kumar NP Consulting Providers: Tyshawn Bravo; Hi Jacobson Instructions Additional Instructions / Restrictions: Follow-up with your PCP in 3 to 5 days to monitor your hemoglobin. Will also give you iron temporarily to help support your anemia from your gastric ulcers that were bleeding. Also the antibiotic you need is called ciprofloxacin however it can interact with your Coumadin therefore I asked that you hold one of your Coumadin pills and you cut the other 1 and half until your antibiotics are completed. You will need to have INR monitoring as an outpatient as well to make sure that the INR does not get too high. Discharge Orders/Prescriptions Prescriptions: New ciprofloxacin HCl 500 mg Tablet 500 mg PO BID 6 Days Qty: 12 0RF pantoprazole [Protonix] 40 mg tablet,delayed release (DR/EC) 40 mg PO BID 30 Days Qty: 60 0RF ferrous sulfate 324 mg (65 mg iron) tablet,delayed release (DR/EC) 324 mg PO BID Qty: 60 0RF Continued raloxifene [Evista] 60 mg tablet 60 mg PO DAILY H2Q CoQ10 200 mg/gram powder 200 mg PO DAILY metoprolol succinate 25 mg tablet extended release 24 hr 25 mg PO DAILY cholecalciferol (vitamin D3) 25 mcg (1,000 unit) tablet 2,000 unit PO DAILY vitamin E mixed 400 unit tablet 400 unit PO DAILY potassium chloride 10 mEq tablet extended release 10 meq PO BID Patient Comments: PT TAKES IN EVENING WHEN ON LASIX gabapentin 100 mg capsule 100 mg PO QHS PreserVision AREDS 2 Plus MV 200 mcg-15 mcg- 5 mg-1 mg capsule 1 cap PO DAILY [id number]-szxm 333-133-5 mg tablet 0.5 tab PO BID hydrochlorothiazide 12.5 mg tablet 12.5 mg PO DAILY furosemide [Lasix] 20 mg tablet 20 mg PO DAILY warfarin [Jantoven] 2 mg tablet 2 mg PO SUTUWETHSA Qty: 1 0RF Rx Instructions: Decrease dose to 1 mg until you complete your antibiotic course Held warfarin [Jantoven] 1 mg tablet 1 mg PO MOFR Hold Instructions: Resume on 09/22/24. Referrals / Follow Up: Tyshawn Bravo DO [Med Staff - Active Staff] - Within 3 Months Marguerite Kumar SHELTERED WORKSHOP WORKER, SHELTERED WORKSHOP WORKER-C [Primary Care Provider] - Within 1 Week Disposition Disposition (needs filled in before D/C Order can be placed): Home, Self Care
[2024-09-15] MEDS: Potassium Phosphate 30 MM in 0.9% Normal Saline (250mL Bag) 250 ML 42 MM IV (09:49)
--- NOTE | 2024-09-15 10:09 | CASEMGMT ---
Addendum entered by Ana Paula Spencer 09/15/24 12:20: Mallory from [facility] states that they can accept for a SOC most likely Friday but might be able to have someone come to the home Friday. KINGA ISAACS to the pt room at this time. The pt sates that she is fine with either option and denies further DC needs. Addendum entered by Ana Paula Spencer 09/15/24 10:35: [facility] MSHunter Aide states to this RN SHITAL that the pt has changed her mind and is wanting HHC now. KINGA ISAACS to the pt room at this time. Pt's daughter is still at bedside. Pt states that she would be agreeable to skilled HHC (SN, PT, and OT) and would prefer to go through [facility] and declines wanting to review a list of other in-network agencies. TC to [facility], no answer. VM left with referral information. CM to follow. Original Note: Pt has an order for DC placed. Noted PT progress notes today indicating additional therapy recommended. KINGA ISAACS to the pt room at this time to follow up on DC planning. Pt's Daughter at bedside. At this time, the pt denies the need for SNF, HH, or OP therapy. Pt states that she wishes to return home with the support of her children/family. Pt states that she is aware that she can follow up with her PCP if she changes her mind. Pt states that she feels safe returning home with her family support. Pt daughter states the same. Pt's daughter states that the pt's family will also be able to tend to the pt's wound care. Pt and pt's daughter were educated that SN, PT, and OT would be beneficial for the pt for wound care as well as functional/general strengthening. Pt again declines the need for any form of additional therapy and states that she plans to do exercises at home. Pt requesting a time for DC as she plans to hire a truck driver helper. Pt is currently getting K-Phos IV that will take anther 5-6 hours to infuse. Pt and pt daughter updated and states understanding. Pt and pt's daughter declines further questions, concerns, or needs at this time.
[2024-09-15] MEDS: Ciprofloxacin 500 MG Tablet PO (11:14)
[2024-09-15] MEDS: Furosemide 20 MG Tablet PO (11:14)
[2024-09-15] MEDS: Cholecalciferol (VIT D3) 25 MCG TABLET (1,000 UNITS) 50 MCG PO (11:14)
[2024-09-15 11:15] VITALS: PULSE 88
[2024-09-15] MEDS: Metoprolol(XL)Succ 25 MG Tablet PO (11:15)
[2024-09-15] MEDS: Pantoprazole Sodium 40 MG in 0.9% Normal Saline (100mL MB+) 100 ML 330 MG IV (11:16)
--- NOTE | 2024-09-15 11:29 | PHA.DC_ITS ---
Pharmacy [facility] Counseling Pharmacy Service has performed discharge medication reconciliation and counseling for this patient. Educated patient to have INR checked due to interaction with Cipro. 1. CIPROFLOXACIN 500MG PO BID X 6 DAYS 2. FERROUS SULFATE 324MG PO BID 3. PANTOPRAZOLE 40MG PO BID 4. HOLD FRIDAY AND FRIDAY WARFARIN DOSES UNTIL 09/22/24 5. REDUCE SuTuWeThSa WARFARIN TO 1MG WHILE ON CIPRO The patient's discharge medication list was reviewed for discrepancies and discrepancies were resolved. The patient was counseled on the following discharge medications and changes in medications for homegoing were reviewed. The Reason for Use, instructions for use, and potential side effects were reviewed for all new medications. The patient's questions regarding all of their medications were answered. The patient was able to verbally demonstrate an understanding of their discharge medications. Medications at Discharge Home Medications coenzyme Q10 200 mg/gram oral powder (H2Q CoQ10) 200 mg PO DAILY 10/13/20 metoprolol succinate 25 mg tablet,extended release 24 hr 25 mg PO DAILY 10/13/20 raloxifene 60 mg tablet (Evista) 60 mg PO DAILY 10/13/20 cholecalciferol (vitamin D3) 25 mcg (1,000 unit) tablet 2,000 unit PO DAILY 01/18/21 vitamin E mixed 400 unit tablet 400 unit PO DAILY 01/18/21 gabapentin 100 mg capsule 100 mg PO QHS 07/12/21 potassium chloride 10 mEq tablet,extended release 10 meq PO BID 07/12/21 mv-mn-folic 200 mcg-vit K 15 mcg-lutein 5 mg-zeaxanthin 1 mg capsule (PreserVision AREDS 2 Plus Multivit) 1 cap PO DAILY 08/06/22 zwtlgtu-xewycnfbc-smly 333 mg-133 mg-5 mg tablet 0.5 tab PO BID 09/10/24 furosemide 20 mg tablet (Lasix) 20 mg PO DAILY 09/10/24 hydrochlorothiazide 12.5 mg tablet 12.5 mg PO DAILY 09/10/24 warfarin 1 mg tablet (Jantoven) 1 mg PO MOFR 09/10/24 Held on 09/15/24. Instructions: Resume on 09/22/24. ciprofloxacin HCl 500 mg tablet 500 mg PO BID 6 days #12 tabs 09/15/24 ferrous sulfate 324 mg (65 mg iron) tablet,delayed release 324 mg PO BID #60 tabs 09/15/24 pantoprazole 40 mg tablet,delayed release (Protonix) 40 mg PO BID 30 days #60 tabs 09/15/24 warfarin 2 mg tablet (Jantoven) 2 mg PO SUTUWETHSA #1 TAB 09/15/24
[2024-09-15 16:58] VITALS: BP 137/81; PULSE 70; RESP 16; TEMP 37.1; O2SAT 97
--- NOTE | 2024-09-15 17:16 | PCM.PN.BLA ---
Physical Exam Const alert, oriented x3, no apparent distress and healthy appearing General Appearance: cooperative GI normal to inspection, nondistended, normoactive bowel sounds, soft to palpation, non-tender and non-distended Percussion: normal to percussion Rectal Exam: deferred Assessment & Plan Assessment/Plan (1) Anticoagulated on Coumadin: (2) Anemia: PLAN: 83-year-old with chronic venous stasis and ulcers of the lower extremity anticoagulated on Coumadin for atrial fibrillation with decreasing hemoglobin. Recommend upper endoscopy 09/13/2024. Keep n.p.o. past midnight on 09/12/2024. PLAN: Plan Patient will have upper endoscopy to evaluate upper GI tract for signs and symptoms of acute or chronic GI blood loss. She was explained alternatives, risk and benefits including withstanding bleeding, infection, subsequent perforation, need for emergent surgery . She have an ASA of 3. 09/15/24- Findings: The examined esophagus was grossly tortuous. A large hiatal hernia was present. Many oozing cratered gastric ulcers with pigmented material were found on the lesser curvature of the stomach, in the prepyloric region of the stomach and at the pylorus. The largest lesion was 12 mm in largest dimension. Coagulation for hemostasis using heater probe was successful. For hemostasis, two hemostatic clips were successfully placed. Clip seal delivery vehicle officer: Bee Ware. There was no bleeding at the end of the procedure. A few 5 mm angiodysplastic lesions without bleeding were found in the second portion of the duodenum and in the third portion of the duodenum. Coagulation for destruction of remaining portion of lesion using argon plasma at 0.3 liters/minute and 20 rice was successful. Estimated blood loss was minimal. Impression: - Tortuous esophagus. - Large hiatal hernia. - Oozing gastric ulcers with pigmented material. Treated with a heater probe. Clips were placed. Clip seal delivery vehicle officer: Maynard [email or web address]. 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 Treated with argon plasma coagulation (APC). - No specimens collected. Recommendation: - [facility]. - Clear liquid diet. - Continue present medications. Her hemoglobin has been stable and she is able to tolerate a diet. She can be discharged from GI standpoint off of anticoagulation and antiplatelet therapy to follow-up in the office for confirmatory upper endoscopy to ensure that it is okay for her to be back on medicines. Continue PPI and Carafate as an outpatient. Visit Charges Inpatient E&M: 61564 Subs Hosp L3
--- NOTE | 2024-09-15 19:24 | DS.PCM_ITS ---
Providers Date of Admission: 09/10/24 Primary Care Physician: Marguerite Kumar, ANDREW Consultations 09/10/24 15:46 Consult: Onc/Wound/business architect Routine Comment: Reason for Consult:: left leg cellulitis 09/11/24 07:40 Consult: Gastroenterology Routine Consulting Provider: Tyshawn Bravo Reason for Consult: acute on chronic anemia on coumadin, eval for GIB EMERGENT Consult: No MD Notified: Yes Date Notified: 09/11/24 Time Notified: 08:16 Method of Notification: Text Reason For Visit: LEFT LEG CELLULITIS Diagnosis Discharge Diagnosis (1) Anticoagulated on Coumadin: Status: Acute Code(s): Z79.01 - halfway (current) use of anticoagulants (2) Anemia: Status: Acute Code(s): D64.9 - Anemia, unspecified Medications at Discharge Home Medications coenzyme Q10 200 mg/gram oral powder (H2Q CoQ10) 200 mg PO DAILY 10/13/20 metoprolol succinate 25 mg tablet,extended release 24 hr 25 mg PO DAILY 10/13/20 raloxifene 60 mg tablet (Evista) 60 mg PO DAILY 10/13/20 cholecalciferol (vitamin D3) 25 mcg (1,000 unit) tablet 2,000 unit PO DAILY 01/18/21 vitamin E mixed 400 unit tablet 400 unit PO DAILY 01/18/21 gabapentin 100 mg capsule 100 mg PO QHS 07/12/21 potassium chloride 10 mEq tablet,extended release 10 meq PO BID 07/12/21 mv-mn-folic 200 mcg-vit K 15 mcg-lutein 5 mg-zeaxanthin 1 mg capsule (PreserVision AREDS 2 Plus Multivit) 1 cap PO DAILY 08/06/22 kltxvum-nwuqysnmy-tqjj 333 mg-133 mg-5 mg tablet 0.5 tab PO BID 09/10/24 furosemide 20 mg tablet (Lasix) 20 mg PO DAILY 09/10/24 hydrochlorothiazide 12.5 mg tablet 12.5 mg PO DAILY 09/10/24 ciprofloxacin HCl 500 mg tablet 500 mg PO BID 6 days #12 tabs 09/15/24 ferrous sulfate 324 mg (65 mg iron) tablet,delayed release 324 mg PO BID #60 tabs 09/15/24 pantoprazole 40 mg tablet,delayed release (Protonix) 40 mg PO BID 30 days #60 tabs 09/15/24 warfarin 2 mg tablet (Jantoven) 2 mg PO JAIROUWETHSA #1 TAB 09/15/24 Hospital Course Operations None Procedures 2-D Echocardiogram and EGD Summary of Care Provided Minutes Spent on Discharge: 33 Hospital Course: Per HPI: BIALEY TIJERINA, is a 83 F who presented to [facility] ED on 09/10/2024 with left lower leg pain and swelling. Patient is an [place] female with fairly good functional status at baseline. She does have chronic stasis changes and wears compression stockings. Has had a left lower leg wound for the past several weeks after she bumped the leg on the bed. They have been seeing a local doctor for management and been using Silvadene cream and dressings. Unfortunately, it began to weep more over the past few days became more swollen so it was recommended she come to the ED for further evaluation. Patient notably is on Coumadin for A-fib. She was subtherapeutic with her INR on Friday at 1.5, so left lower extremity proximal ultrasound was obtained and was negative for DVT. She is therapeutic with her INR today. Labs were otherwise notable for creatinine 2.25 (baseline 0.8) and patient notes that she had been taking Lasix for the lower extremity swelling and had also been taking ibuprofen 600 mg every 6 hours for the past several days. Her hemoglobin was also decreased from baseline; was 8.9 today and baseline appears to be around 11. She denies any change in bowel movements or dark or bloody stools recently. She does feel more fatigued than her normal but has attributed this to her potential lower extremity infection. Given presumed left lower extremity cellulitis, patient was started on IV antibiotics and hospitalist was contacted for admission. I saw the patient at bedside in the ED, 2 daughters were present. Patient was mildly fatigued appearing but otherwise sitting back comfortably in bed, conversing normally, in no acute distress. She reported mild pain currently and tenderness to the touch of her lower leg. She denies any fevers or chills. No other acute concerns currently. Hospital Course: 1. Left lower extremity cellulitis ? Wound care following. Left lower extremity duplex ultrasound in ED negative for DVT. Had cellulitis from mid leg up to the knee with clearish weeping from wound on admission. WBC count 18,000 but patient otherwise afebrile and hemodynamically stable, did not meet sepsis criteria. Leg wrapped with Seven wrap on admission and has been stable. Unable to collect any cultures from wound. Continue to treat with IV vancomycin and Zosyn and monitor closely. 09/13/2024: White count is improving continue broad-spectrum antibiotics, wound cultures pending, blood cultures are negative 09/14/2024: Wound culture with gram-negative brandt, will await for finalized cultures prior to making antibiotic decisions 09/15/2024: Culture data demonstrate Pseudomonas sensitive to ciprofloxacin which will be the antibiotic of choice on discharge at 500 mg p.o. twice daily for 6 more days. I discussed with her the plan for discharge she expressed understanding the risks and benefits of going home and would like to go home today. She will need to follow-up with her PCP in 3 to 5 days 2. RAFAEL, improving ? Creatinine 2.25 on admit, baseline 0.8-0.9. Suspect prerenal etiology in setting of patient taking increased dose of Lasix for lower extremity swelling prior to admission as well as home hydrochlorothiazide. Given 1 L of fluids on admit. Most recent creatinine 1.26 on 09/12. Notably patient did develop hypoxia as noted below concerning for volume overload. Further workup as noted below. Spot dosing with diuresis as able as blood pressures have been borderline low. Continue to monitor BMP and urine output daily. Hold home Lasix and hydrochlorothiazide. 09/13/2024: RAFAEL is resolved 3. Acute on chronic anemia ? GI following. Hemoglobin 8.9 on admit, was 11.5 about 1 month prior to admission. Iron studies with low iron and iron saturation but normal ferritin level. Patient denies any stool changes. However, is high risk for GI bleed given she is on Coumadin for anticoagulation. Most recent hemoglobin 7.6 on 09/12. Continue treatment with IV PPI twice daily. Holding home warfarin for now, monitor daily INR. Per GI, will plan for upper scope tomorrow, n.p.o. at midnight. Continue to monitor CBC daily. 09/13/2024: Hemoglobin dropped to 7.3 today unfortunate she could not get her EGD so we will plan for tomorrow for evaluation may need to transfuse the family was concerned as we do not screen for people who have had the COVID-vaccine but they understand that if she falls below hemoglobin of 7 she will have to be transfused regardless 09/14/2024: Hemoglobin dropped to 6.9, will transfuse 1 unit 09/15/2024: Hemoglobin today is 8.4, given her likely decreased nutritional status we will plan to give her iron supplementation twice daily for about a month and plan for have her follow-up with GI in the outpatient setting. Gastroenterology would like her to discontinue anticoagulation which will be relayed to her and will continue with the PPI. 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 4. Acute hypoxia with concern for new onset heart failure ? Found to be hypoxic requiring 2 L nasal cannula on morning of 09/11. Breathing comfortably on room air at rest, asymptomatic. Chest x-ray showed moderate cardiomegaly with mild bibasilar pleural effusions concerning for heart failure. Follows with cardiology as below, last echo in 2020 was unremarkable. Repeat echo ordered. Given 1 dose of IV Lasix 20 mg on 09/11 with decent urine output. Has had borderline low blood pressures so we will only spot dose diuretics at this time. 09/13/2024: Continue with 20 mg of p.o. Lasix, echocardiogram demonstrates an EF of 70% with a PASP of 44 mmHg and mild aortic stenosis with a gradient of 14 mmHg 5. Borderline hypotension in setting of essential hypertension, paroxysmal A- fib on Coumadin ? Follows with [place] [facility]. In normal sinus rhythm on admit. INR therapeutic at 2.3. Patient has had borderline low blood pressures with bennett in 90s/50s. Suspect GI blood loss and possible new heart failure are contributing to this. Okay to continue home Toprol with hold parameters. Holding home Lasix and hydrochlorothiazide. 09/15/2024: Blood pressures have improved after transfusion, she can resume her home medications on discharge with close outpatient follow-up which was discussed with her 6. Hypokalemia ? Potassium 2.9 on admit. Mag and Phos normal. Presume secondary to increased Lasix dosing as above. Replete potassium as needed. 7. Neuropathy ? Continue home gabapentin. Physical Exam Narrative General: Alert, Oriented x3, Cooperative, No apparent distress, pale HEENT: Atraumatic, PERRLA, EOMI, Normocephalic Oral: Moist Mucosa Neck: Supple, No JVD Lungs: Diminished, Normal air movement, No rhonchi, No wheeze, No rales Cardiovascular: Regular rate, Regular Rhythm, Normal S1, Normal S2, No murmurs Abdomen: Soft, Non Tender, Non-Distended, No Hepato-splenomegaly Extremities: Edema, Capillary Refill Less than 3 Seconds Skin: Lower extremities wrapped Musculoskeletal: No Tenderness to Palpation of Joints or Extremities Neurological: No focal neurological deficits, Motor Exam 5/5 strength throughout, Sensory exam intact to light touch and pain Psych/Mental Status: Normal Affect, Appropriate, fatigued Weight / BMI Weight Weight: 137 lb 6.4 oz Body Mass Index (BMI) 26.8 ABG / Lab / Microbiology Data 09/15/24 04:43 09/15/24 04:43 Laboratory: Laboratory Results - last 24 hr 09/15/24 04:43: WBC 11.1 H, RBC 2.67 L, Hgb 8.4 L, Hct 24.6 L, MCV 92.1, MCH 31.5, MCHC 34.1, RDW Std Deviation 51.7 H, RDW Coeff of Pavel 15.5 H, Plt Count 243, MPV 9.1, Neut % (Auto) Not Reportable, Absolute Neuts (auto) 7.5, Absolute Lymphs (auto) 1.78, Total Counted 100, Neutrophils % (Manual) 65, Band Neutrophils % 3, Lymphocytes % (Manual) 16 L, Monocytes % (Manual) 2, E osinophils % (Manual) 8 H, Basophils % (Manual) 2 H, Metamyelocytes % 1, M yelocytes % 3 H, Platelet Estimate ADEQUATE, RBC Morphology NORM C+C, Sodium 136, Potassium 3.2 L, Chloride 104, Carbon Dioxide 23.1, Anion Gap 9, BUN 14, C reatinine 0.66 L, Estim Creat Clear Calc 44.70 L, Est GFR (MDRD) Non-Af 87, B UN/Creatinine Ratio 21.0 H, Glucose 105 H, Calcium 7.8, Phosphorus 2.1 L, Magnesium 1.7 Microbiology: Microbiology 09/10/24 11:40 Blood Culture (Wb) - Left Hand Blood Culture - Final No growth in 5 days. 09/10/24 10:50 Blood Culture (Wb) - Left Forearm Blood Culture - Final No growth in 5 days. 09/13/24 08:15 Wound - Leg, Left Gram Stain - Final 09/13/24 08:15 Wound - Leg, Left Wound Culture - Final Pseudomonas aeruginosa D/C Instructions Discharge Diet: Low fat / Low cholesterol Call your doctor if you observe: Fever of 101 or Higher, Shortness of breath, Dizziness, Fainting spells, Swelling in the ankles, Chest pain and Increased palpitations (irregular heartbeat) DC O2, CPAP, BIPAP Needs Home O2 Discharge instructions: No Meaningful Use Info Meaningful Use Meaningful Use Diagnoses (Choose all that apply): None applicable Ischemic Stroke Statin Dosing Therapy Reference: STATIN DOSE THERAPY REFERENCE: * Patients > 75 years receive moderate or high dose statin therapy. * Patients 75 years or YOUNGER should receive HIGH intensity statin dose unless contraindicated. You will be required to document reason for non-treatment if statin daily dose does not meet guidelines. HIGH DOSE STATIN THERAPY DAILY Atorvastatin > than or = to 40 mg Rosuvastatin > than or = to 20 mg Amlodipine + Atorvastatin > than or = to 2.5/40 mg Ezetimibe + Simvastatin 10/80 mg Simvastatin 80mg Discharge Plan Admission Admit Date/Time: 09/10/24 12:55 Attending Provider: Edgar Ramirez Primary Care Provider: Marguerite Kumar NP Consulting Providers: Tyshawn Bravo; Hi Jacobson Instructions Additional Instructions / Restrictions: Follow-up with your PCP in 3 to 5 days to monitor your hemoglobin. Will also give you iron temporarily to help support your anemia from your gastric ulcers that were bleeding. Also the antibiotic you need is called ciprofloxacin however it can interact with your Coumadin therefore I asked that you hold one of your Coumadin pills and you cut the other 1 and half until your antibiotics are completed. You will need to have INR monitoring as an outpatient as well to make sure that the INR does not get too high. Discharge Orders/Prescriptions Prescriptions: New ciprofloxacin HCl 500 mg Tablet 500 mg PO BID 6 Days Qty: 12 0RF pantoprazole [Protonix] 40 mg tablet,delayed release (DR/EC) 40 mg PO BID 30 Days Qty: 60 0RF ferrous sulfate 324 mg (65 mg iron) tablet,delayed release (DR/EC) 324 mg PO BID Qty: 60 0RF Continued raloxifene [Evista] 60 mg tablet 60 mg PO DAILY H2Q CoQ10 200 mg/gram powder 200 mg PO DAILY metoprolol succinate 25 mg tablet extended release 24 hr 25 mg PO DAILY cholecalciferol (vitamin D3) 25 mcg (1,000 unit) tablet 2,000 unit PO DAILY vitamin E mixed 400 unit tablet 400 unit PO DAILY potassium chloride 10 mEq tablet extended release 10 meq PO BID Patient Comments: PT TAKES IN EVENING WHEN ON LASIX gabapentin 100 mg capsule 100 mg PO QHS PreserVision AREDS 2 Plus MV 200 mcg-15 mcg- 5 mg-1 mg capsule 1 cap PO DAILY [id number]-pgubjubhz-bmbq 333-133-5 mg tablet 0.5 tab PO BID hydrochlorothiazide 12.5 mg tablet 12.5 mg PO DAILY furosemide [Lasix] 20 mg tablet 20 mg PO DAILY warfarin [Jantoven] 2 mg tablet 2 mg PO SUTUWETHSA Qty: 1 0RF Rx Instructions: Decrease dose to 1 mg until you complete your antibiotic course Discontinued warfarin [Jantoven] 1 mg tablet 1 mg PO MOFR Referrals / Follow Up: Tyshawn Bravo DO [Med Staff - Active Staff] - Within 3 Months Marguerite Kumar SOCIAL WORK COORDINATOR, SOCIAL WORK COORDINATOR-C [Primary Care Provider] - Within 1 Week Disposition Disposition (needs filled in before D/C Order can be placed): Home, Self Care
--- NOTE | 2024-09-15 20:32 | NURSING ---
Spoke with finishing machine operator for Nenita Lane- Relayed to finishing machine operator per Dr. Ramirez- that Patient is to stop taking coumadin at this time until follow up visit with Dr. Bravo. Patient will also start taking Carafate TID as well. Nenita voiced understanding. Dr. Bravo office number given. Repeated directions back to this nurse. No further questions voiced.
[2024-09-29 11:36] LABS: Pathologist Review Reviewed
== END 2024-09-15 17:15 | disposition home or self-care (01) | DRG 602 ==
LOC: ED 12:34 → MS3 14:38
PROVIDERS: Internal Medicine Gastroenterology; Student in an Organized Health Care Education/Training Program; Admitting Provider Hospitalist; Emergency Provider Emergency Medicine; PCP Nurse Practitioner Family; Referring Provider Hospitalist; Visit Provider Family Medicine
PROC: 0DJ08ZZ Inspection of Upper Intestinal Tract, Via Natural or Artificial Opening Endoscopic (ICD-10-PCS; CPT 43235; principal; 2024-09-14 16:25)
DX: L03.116 Cellulitis of left lower limb (principal); K25.4 Chronic or unspecified gastric ulcer with hemorrhage; D68.32 Hemorrhagic disorder due to extrinsic circulating anticoagulants; D62 Acute posthemorrhagic anemia; N17.9 Acute kidney failure, unspecified; B96.5 Pseudomonas (aeruginosa) (mallei) (pseudomallei) as the cause of diseases classified elsewhere; I48.0 Paroxysmal atrial fibrillation; G62.9 Polyneuropathy, unspecified; I11.0 Hypertensive heart disease with heart failure; E87.6 Hypokalemia; K44.9 Diaphragmatic hernia without obstruction or gangrene; K31.819 Angiodysplasia of stomach and duodenum without bleeding; I50.9 Heart failure, unspecified; Z79.01 Long term (current) use of anticoagulants; Z79.899 Other long term (current) drug therapy
CPT/HCPCS: 36415; 71045; 80048; 80076; 80202; 81001; 82607; 82728; 82746; 83540; 83550; 83605; 83735; 83880; 84100; 85025; 85027; 85610; 85730; 86850; 86900; 86901; 87040; 87070; 87077; 87186; 87205; 87640; 93005; 93306; 93971; 94668; 97162; 97166; 97530; 97535; 99284; C1889; P9016; A4216; J1938; J2405

== ENCOUNTER 2024-09-20 15:24 | Outpatient (RCR) | payer OTHER, SELFPAY ==
[2024-09-20 16:16] LABS: Hematocrit 26.6 % (37-47); Hemoglobin 8.7 g/dL (12.0-15.0); Mean Corp Hgb Conc 32.7 g/dL (32-36); Mean Corpuscular Hgb 31.3 pg (27.0-32.0); Mean Corpuscular Volume 95.7 fL (81-99); Mean Platelet Vol. 9.1 fl (6.2-12.0); Platelet Count 470 K/mm3 (150-450); RBC Distribution Width CV 14.8 % (11.6-14.6); RBC Distribution Width SD 51.9 fl (35.1-43.9); Red Blood Count 2.78 M/mm3 (4.2-5.4); White Blood Count 9.8 K/mm3 (4.4-11.0)
[2024-09-20 16:48] LABS: Anion Gap 10 (5-15); BUN 17 mg/dL (4-19); BUN/Creat Ratio 19.9 RATIO (10-20); Calcium,Total 8.5 mg/dL (7.6-11.0); Chloride 100 mmol/L (98-108); Creatinine, Serum 0.85 mg/dL (0.70-1.20); EST Glomerular Filtration Rate 69 (>60); Glucose 95 mg/dL (70-99); Potassium 3.6 mmol/L (3.3-5.1); Sodium Level 137 mmol/L (133-145)
[2024-09-20 16:55] LABS: International Normalized Ratio 1.7; Prothrombin Time (Protime)PT. 20.6 SECONDS (11.7-14.9)
== END 2024-09-20 18:00 | disposition home or self-care (01) ==
LOC: HHLAB 15:24
PROVIDERS: PCP Nurse Practitioner Family
DX: N17.9 Acute kidney failure, unspecified (principal); E87.5 Hyperkalemia; D64.9 Anemia, unspecified; I48.91 Unspecified atrial fibrillation
CPT/HCPCS: 80048; 85027; 85610

== ENCOUNTER 2024-09-20 17:11 | Emergency (ER) | payer OTHER, SELFPAY ==
[2024-09-20 17:11] VITALS: BP 128/64; PULSE 91; RESP 14; TEMP 36.6; O2SAT 96
[2024-09-20 18:36] VITALS: BMI 27.1
[2024-09-20 18:41] VITALS: BP 126/70; PULSE 87; RESP 16; O2SAT 97
--- NOTE | 2024-09-20 18:42 | ED.VIS.GI ---
HPI HPI - GI History of Present Illness Chief Complaint: GI Bleed Narrative Narrative: 83-year-old female presents with her children because of recent GI bleeding. Her family relates history that she was admitted to the hospital on Friday of last week, approximately 7 days ago, and Dr. Bravo with gastroenterology had cauterized bleeding ulcers in her stomach. She had required 2 units of blood as her hemoglobin was low at 6. It was under the assumption that she would stay a few days afterwards. However, her daughter relays history that they were shocked to find out that she was discharged from the hospital the following day on Friday. They were told by the home health nurse that she needed to come to the emergency department today. However, they are unsure as to why. Patient does have history of black stool and she takes iron supplementation. [facility] Medical History Fatigue Grade I diastolic dysfunction Venous incompetence Secondary pulmonary arterial hypertension Non-rheumatic tricuspid valve insufficiency Paroxysmal atrial fibrillation Paroxysmal supraventricular tachycardia Essential hypertension Vitamin D deficiency Family history of colon cancer History of colonic polyps Scoliosis Diverticulosis Hiatal hernia Lipodermatosclerosis Hyperpigmentation of skin Venous hypertension, chronic, with ulcer Chronic venous insufficiency Venous ulcer of left leg Leg edema, left Edema of left lower leg due to peripheral venous insufficiency 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 Home Medications ?Medication ?Instructions ?Recorded ?Last Taken ?Type coenzyme Q10 200 mg/gram oral 200 mg PO DAILY 10/13/20 09/10/24 History powder (H2Q CoQ10) metoprolol succinate 25 mg 25 mg PO DAILY 10/13/20 09/10/24 History tablet,extended release 24 hr raloxifene 60 mg tablet (Evista) 60 mg PO DAILY 10/13/20 09/10/24 History cholecalciferol (vitamin D3) 25 2,000 unit PO DAILY 01/18/21 09/10/24 History mcg (1,000 unit) tablet vitamin E mixed 400 unit tablet 400 unit PO DAILY 01/18/21 09/10/24 History gabapentin 100 mg capsule 100 mg PO QHS 07/12/21 09/09/24 History potassium chloride 10 mEq 10 meq PO BID 07/12/21 09/10/24 History tablet,extended release mv-mn-folic 200 mcg-vit K 15 1 cap PO DAILY 08/06/22 09/10/24 History mcg-lutein 5 mg-zeaxanthin 1 mg capsule (PreserVision AREDS 2 Plus Multivit) egqcfdz-ejdcwmqgh-ywot 333 mg-133 0.5 tab PO BID 09/10/24 09/10/24 History mg-5 mg tablet furosemide 20 mg tablet (Lasix) 20 mg PO DAILY 09/10/24 09/10/24 History hydrochlorothiazide 12.5 mg tablet 12.5 mg PO DAILY 09/10/24 09/10/24 History ciprofloxacin HCl 500 mg tablet 500 mg PO BID 6 days #12 tabs 09/15/24 Unknown Rx ferrous sulfate 324 mg (65 mg 324 mg PO BID #60 tabs 09/15/24 Unknown Rx iron) tablet,delayed release pantoprazole 40 mg tablet,delayed 40 mg PO BID 30 days #60 tabs 09/15/24 Unknown Rx release (Protonix) sucralfate 1 gram tablet (Carafate) 1 g PO TID 30 days #90 tabs 09/15/24 Unknown Rx warfarin 2 mg tablet (Jantoven) 2 mg PO SUTUWETHSA #1 TAB 09/15/24 09/09/24 Rx Allergy/AdvReac Type Severity Reaction Status Date / Time No Known Allergies Allergy Verified 09/20/24 17:12 Family History Mother Heart disease Father Colon cancer Brother Asthma Alzheimers disease Surgical History History of loop electrosurgical excision procedure (LEEP) of cervix H/O tubal ligation History of cholecystectomy Social History Smoking Status: Never smoker alcohol intake: never substance use type: does not use caffeine: Yes Type: carbonated beverages and coffee ROS ROS ED ROS Narrative Review of systems positive for generalized weakness and fatigue, no lightheadedness or dizziness. No nausea or vomiting, no hematemesis. Positive black stool but has had this chronically with iron supplementation. Patient used to take warfarin but has not taken it recently. No bright red blood per rectum. EXAM Physical Exam Narrative Exam Narrative: Afebrile. Vital signs noted. Nontoxic-appearing. Cardiovascular examination reveals a regular rate and rhythm. Lungs are clear to auscultation bilaterally. Abdomen is soft and nontender without guarding or rebound. Positive bowel sounds. Neurological examination nonfocal, nonlateralizing. Left lower extremity in Seven wrap, being treated for leg wound. No central cyanosis. No subconjunctival pallor. Const Vital Signs: 09/20/24 17:11 09/20/24 18:41 09/20/24 18:49 Temperature 98 F Temperature Source Oral Pulse Rate 91 87 Pulse Rate [Lying] 81 Pulse Rate [Sitting (for 1 minute prior to obtaining)] 90 Pulse Rate [Standing (for 1 minute prior to obtaining)] 98 Respiratory Rate 14 16 Blood Pressure 128/64 H 126/70 H Blood Pressure [Lying] 122/68 H Blood Pressure [Sitting (for 1 minute prior to obtaining)] 145/73 H Blood Pressure [Standing (for 1 minute prior to obtaining)] 128/77 H Blood Pressure Mean 85 88 Blood Pressure Mean [Lying] 86 Blood Pressure Mean [Sitting (for 1 minute prior to obtaining)] 97 Blood Pressure Mean [Standing (for 1 minute prior to obtaining)] 94 Pulse Ox 96 97 Oxygen Delivery Method Room Air Room Air MDM MDM MDM Narrative Medical decision making narrative: Differential diagnosis includes but not limited to rebleeding of cauterized ulcers versus chronic anemia versus anemia requiring transfusion. I reviewed her laboratory work from today and her hemoglobin was 8.7. This is improved over prior labs when compared. However, I will repeat laboratory work just to ensure that she has not dropped a significant amount in her hemoglobin over the last few hours. I will also obtain a BMP to look for elevated BUN. Orthostatics will be obtained as well. I will discuss patient with Dr. Bravo as well. I reviewed her prior inpatient record. In review of her previous inpatient record, she did have bleeding ulcers the largest being 12 mm, which were cauterized. I reviewed her prior laboratory work from earlier this afternoon and her hemoglobin was 8.7 and repeat in the emergency department is 8.8, platelet count elevated at 484 which I think may be more of an acute phase reactant. BUN normal at 18 and creatinine 0.87 so I doubt upper GI bleeding. Glucose elevated at 115 with normal anion gap of 10. Orthostatics were obtained and reviewed and are negative. I discussed the patient with Dr. Bravo. It was not felt that she needs admission to the hospital. While I am unsure as to why it was reported that the home health nurse sent her in today, I do feel that she can be discharged to follow-up as needed. Return instructions reviewed. Disposition is discharged home in stable condition. History & Record Review Discussion w/independent historian: Patient and Family Additional record(s) reviewed:: Prior inpatient record Lab Data Labs: Laboratory Results - last 24 hr 09/20/24 19:08 WBC 10.0 RBC 2.87 L Hgb 8.8 L Hct 27.0 L MCV 94.1 MCH 30.7 MCHC 32.6 RDW Std Deviation 50.7 H RDW Coeff of Pavel 14.9 H Plt Count 484 H MPV 8.6 Immature Gran % (Auto) 1.000 H Neut % (Auto) 72.6 H Lymph % (Auto) 14.4 L Mcculloch % (Auto) 7.3 Eos % (Auto) 4.1 Baso % (Auto) 0.6 Absolute Neuts (auto) 7.3 Absolute Lymphs (auto) 1.44 Nucleated RBC % 0 Sodium 137 Potassium 3.5 Chloride 100 Carbon Dioxide 26.7 Anion Gap 10 BUN 18 Creatinine 0.87 Estim Creat Clear Calc 41.23 L Est GFR (MDRD) Non-Af 66 BUN/Creatinine Ratio 20.4 H Glucose 115 H Calcium 8.6 Discharge Plan Triage Chief Complaint: GI Bleed ED Provider: Terrance Reese Dx/Rx/DC Orders Clinical Impression: Anemia, History of stomach ulcers Instructions: ED Anemia, Type Not Specified (Adult) Prescriptions: No Action raloxifene [Evista] 60 mg tablet 60 mg PO DAILY H2Q CoQ10 200 mg/gram powder 200 mg PO DAILY metoprolol succinate 25 mg tablet extended release 24 hr 25 mg PO DAILY cholecalciferol (vitamin D3) 25 mcg (1,000 unit) tablet 2,000 unit PO DAILY vitamin E mixed 400 unit tablet 400 unit PO DAILY potassium chloride 10 mEq tablet extended release 10 meq PO BID Patient Comments: PT TAKES IN EVENING WHEN ON LASIX gabapentin 100 mg capsule 100 mg PO QHS PreserVision AREDS 2 Plus MV 200 mcg-15 mcg- 5 mg-1 mg capsule 1 cap PO DAILY [id number]-[id number] 333-133-5 mg tablet 0.5 tab PO BID hydrochlorothiazide 12.5 mg tablet 12.5 mg PO DAILY furosemide [Lasix] 20 mg tablet 20 mg PO DAILY ciprofloxacin HCl 500 mg Tablet 500 mg PO BID 6 Days Qty: 12 0RF warfarin [Jantoven] 2 mg tablet 2 mg PO SUTUWETHSA Qty: 1 0RF Rx Instructions: Decrease dose to 1 mg until you complete your antibiotic course pantoprazole [Protonix] 40 mg tablet,delayed release (DR/EC) 40 mg PO BID 30 Days Qty: 60 0RF ferrous sulfate 324 mg (65 mg iron) tablet,delayed release (DR/EC) 324 mg PO BID Qty: 60 0RF sucralfate [Carafate] 1 gram tablet 1 g PO TID 30 Days Qty: 90 0RF Primary Care Provider: Marguerite Kumar NP Referrals: Tyshawn Bravo DO [Med Staff - Active Staff] - As Needed Marguerite Kumar NP, GRAVEDIGGER-C [Primary Care Provider] - 3-5 Days if not improving Activity Restrictions/Additional Instructions: Return to the emergency department with fever, increasing weakness, vomiting blood, new or worsening symptoms. Print Language: [place] Disposition Disposition: Home, Self Care
[2024-09-20 18:49] VITALS: BP 122/68; BP 128/77; BP 145/73; PULSE 81; PULSE 90; PULSE 98
[2024-09-20 19:22] LABS: Absolute Lymphocyte Count 1.44 X10^3/uL (0.83-4.51); Absolute Neutrophil Count 7.3 X10^3/uL (2.0-7.7); Basophil# 0.06 X10^3/uL; Basophil% 0.6 % (0-1); Eosinophil# 0.41 X10^3/uL; Eosinophils% 4.1 % (0-5); Hemoglobin 8.8 g/dL (12.0-15.0); Lymphocyte # 1.44 X10^3/ul (0.83-4.51); Lymphocyte % 14.4 % (19-41); Mean Corp Hgb Conc 32.6 g/dL (32-36); Mean Corpuscular Hgb 30.7 pg (27.0-32.0); Mean Corpuscular Volume 94.1 fL (81-99); Mean Platelet Vol. 8.6 fl (6.2-12.0); Monocyte# 0.73 X10^3/uL; Monocyte% 7.3 % (0-10); NRBC Flagged by Analyzer 0 % (0-5); Neutrophil # 7.29 X10^3/uL (2.7-7.7); Neutrophil % 72.6 % (47-70); Platelet Count 484 K/mm3 (150-450); RBC Distribution Width CV 14.9 % (11.6-14.6); RBC Distribution Width SD 50.7 fl (35.1-43.9); Red Blood Count 2.87 M/mm3 (4.2-5.4)
[2024-09-20 19:41] LABS: Anion Gap 10 (5-15); BUN 18 mg/dL (4-19); BUN/Creat Ratio 20.4 RATIO (10-20); Calcium,Total 8.6 mg/dL (7.6-11.0); Carbon Dioxide 26.7 mmol/L (21.0-32.0); Chloride 100 mmol/L (98-108); Creatinine, Serum 0.87 mg/dL (0.70-1.20); EST Glomerular Filtration Rate 66 (>60); Estimated Creatinine Clearance 41.23 ml/min (50-250); Glucose 115 mg/dL (70-99); Potassium 3.5 mmol/L (3.3-5.1); Sodium Level 137 mmol/L (133-145)
[2024-09-20 20:19] VITALS: BP 121/69; PULSE 82; RESP 14; TEMP 36.6; O2SAT 100
== END 2024-09-20 20:20 | disposition home or self-care (01) ==
PROVIDERS: Emergency Provider Emergency Medicine; PCP Nurse Practitioner Family; Visit Provider Emergency Medicine
DX: D64.9 Anemia, unspecified (principal); Z87.11 Personal history of peptic ulcer disease
CPT/HCPCS: 80048; 85025; 99283; A4216

== ENCOUNTER → 2024-11-02 | Outpatient (CLI) | payer OTHER, SELFPAY ==
[2024-11-02 09:30] LABS: Hematocrit 32.2 % (37-47); Hemoglobin 10.2 g/dL (12.0-15.0); Mean Corp Hgb Conc 31.7 g/dL (32-36); Mean Corpuscular Volume 96.7 fL (81-99); Mean Platelet Vol. 9.7 fl (6.2-12.0); Platelet Count 214 K/mm3 (150-450); RBC Distribution Width CV 14.3 % (11.6-14.6); RBC Distribution Width SD 50.6 fl (35.1-43.9); Red Blood Count 3.33 M/mm3 (4.2-5.4); White Blood Count 5.8 K/mm3 (4.4-11.0)
[2024-11-02 10:08] LABS: AST(SGOT) 31 U/L (<=31); Alanine Aminotransfer ALT/SGPT 6 U/L (<=34); Albumin, Serum 3.8 g/dL (3.4-4.8); Alkaline Phosphatase 78 U/L (35-104); Anion Gap 12 (5-15); BUN 28 mg/dL (4-19); BUN/Creat Ratio 24.7 RATIO (10-20); Calcium,Total 9.2 mg/dL (7.6-11.0); Carbon Dioxide 25.7 mmol/L (21.0-32.0); Chloride 102 mmol/L (98-108); Globulin 3.0 g/dL (2.2-4.2); Glucose 93 mg/dL (70-99); Potassium 4.1 mmol/L (3.3-5.1)
[2024-11-02 10:54] LABS: Immature Reticulocyte Fraction 8.40 % (3.00-15.90); Platelet Count 208 K/mm3 (150-450); Reticulocyte Count 1.20 % (0.5-1.5)
[2024-11-02 11:04] LABS: Ferritin 170 ng/mL (22-378); Iron 56 ug/dL (50-170)
== END | disposition home or self-care (01) ==
PROVIDERS: Internal Medicine Gastroenterology; PCP Nurse Practitioner Family; Referring Provider Nurse Practitioner Family; Visit Provider Nurse Practitioner Family
DX: K92.2 Gastrointestinal hemorrhage, unspecified (principal); D64.9 Anemia, unspecified
CPT/HCPCS: 36415; 80053; 82728; 83540; 85027; 85045